=== PATIENT | female | born 1965 | race Caucasian/White ===

== ENCOUNTER 2022-11-14 20:39 | Outpatient (REF) | payer OTHER, SELFPAY ==
[2022-11-18 17:07] LABS: Age Gdln ACOG Testing Note (.); HPV Aptima Negative (Negative); IGP, Aptima HPV, rfx 16/18,45 Note (.)
== END 2022-11-14 20:40 | disposition home or self-care (01) ==
LOC: LAB 20:39
PROVIDERS: PCP Nurse Practitioner; Visit Provider Obstetrics & Gynecology
DX: Z12.4 Encounter for screening for malignant neoplasm of cervix (principal)
CPT/HCPCS: 87624; G0145

== ENCOUNTER 2022-11-24 07:16 | Outpatient (OUT) | payer OTHER, SELFPAY ==
--- NOTE | 2022-11-24 07:19 | MM_ITS ---
Patient: CAL ALVAREZ Exam Date: 11/24/2022 : 1965 Gender:F Ordering : DR Jayro Jeffers . Admission #: [id number] Family : JACOB NAVARRO Order #: [id number] CLICK HERE TO VIEW EXAM RADIOLOGY REPORT PROCEDURE: MM TOMOSYNTHESIS SCREENING BI COMPARISON: MG MAMM SCREEN 3D TIKA CAD, 11/23/2021. MG MAMM SCREEN 3D TIKA CAD, 11/12/2020. INDICATIONS: Screening Calculator Name NCI Breast Cancer Risk Assessment Tool 5 Year Breast Cancer Risk 1.10% Lifetime Breast Cancer Risk 7.20% Personal Breast Cancer No Personal Ovarian Cancer No Treatments None Family Cancers None LOCATION: [facility] BREAST COMPOSITION: Scattered areas fibroglandular density. FINDINGS: DIAGNOSTIC CATEGORY 1--NEGATIVE. NO CHANGE FROM COMPARISON ASSESSMENT. RIGHT BREAST: No significant suspicious finding. LEFT BREAST: No significant suspicious finding. RECOMMENDATIONS: ROUTINE MAMMOGRAM AND CLINICAL EVALUATION IN 12 MONTHS. PLEASE NOTE: A NORMAL MAMMOGRAM DOES NOT EXCLUDE THE POSSIBILITY OF BREAST CANCER. A CLINICALLY SUSPICIOUS PALPABLE LUMP SHOULD BE BIOPSIED. Dictated by: Elia Loyd MD on 11/24/2022 at 08:34 Approved by: Elia Loyd MD on 11/24/2022 at 08:35
== END 2022-11-24 07:17 | disposition home or self-care (01) ==
LOC: MAMMO 07:17
PROVIDERS: PCP Nurse Practitioner; Visit Provider Obstetrics & Gynecology
DX: Z00.00 Encounter for general adult medical examination without abnormal findings (principal); Z12.31 Encounter for screening mammogram for malignant neoplasm of breast
CPT/HCPCS: 36415; 77063; 77067; 80053; 80061; 83036; 84443; 85025

== ENCOUNTER 2022-11-24 07:43 | Outpatient (OUT) | payer OTHER, SELFPAY ==
[2022-11-24 08:03] LABS: Basophils Absolute Auto 0.1 10^3/uL (0.0-0.1); Basophils Percent Auto 0.9 % (0.2-2.0); Eosinophils Absolute Auto 0.3 10^3/uL (0.0-0.7); Eosinophils Percent Auto 3.7 % (0.9-7.0); Hematocrit 45.4 % (36.0-48.0); Hemoglobin 14.9 g/dL (12.0-16.0); Immature Granulocytes Abs Auto 0.02 10^3/uL (0.00-0.03); Immature Granulocytes Pct Auto 0.2 % (0.0-0.5); Lymphocytes Absolute Auto 2.6 10^3/uL (1.2-3.8); Lymphocytes Percent Auto 30.6 % (20.5-60.0); Mean Corpuscular HGB Conc 32.8 g/dL (29.9-35.2); Mean Corpuscular Hemoglobin 29.6 pg (26.7-34.0); Mean Corpuscular Volume 90.3 fL (81.0-99.0); Mean Platelet Volume 10.1 fL (9.5-13.5); Monocytes Absolute Auto 0.8 10^3/uL (0.3-0.8); Neutrophils Absolute Auto 4.6 10^3/uL (1.4-6.5); Neutrophils Percent Auto 54.6 % (43.0-75.0); Platelet Count 329 10^3/uL (150-450); Red Blood Count 5.03 10^6/uL (4.20-5.40); White Blood Count 8.4 10^3/uL (4.0-11.0)
[2022-11-24 08:21] LABS: Estimated Average Glucose 137 mg/dL; Glycohemoglobin A1C 6.4 % (4.5-6.2)
[2022-11-24 09:15] LABS: Alanine Aminotransferase 23 U/L (14-59); Albumin Globulin Ratio 1.1; Albumin Level 3.7 g/dL (3.4-5.0); Alkaline Phosphatase 66 U/L (46-116); Anion Gap 8.5; Aspartate Amino Transferase 11 U/L (15-37); BUN Creatinine Ratio 26.8; Bilirubin Total 0.3 mg/dL (0.2-1.0); Carbon Dioxide 29.5 mmol/L (21.0-32.0); Chloride 105 mmol/L (98-107); Chol HDL Ratio 3.6; Cholesterol 132 mg/dL (<=200); Estimated GFR (African America >60 (>=60); Estimated GFR (Non-African Ame >60 (>=60); Globulin 3.3 g/dL; Glucose 110 mg/dL (74-106); HDL Cholesterol 37 mg/dL (40-60); Sodium 139 mmol/L (136-145); Thyroid Stimulating Hormone 0.749 uIU/mL (0.358-3.740); Triglycerides 132 mg/dL (<=150); VLDL CHOLESTEROL 26.4 mg/dL
== END 2022-11-24 07:44 | disposition home or self-care (01) ==
PROVIDERS: PCP Nurse Practitioner; Visit Provider Nurse Practitioner
DX: Z00.00 Encounter for general adult medical examination without abnormal findings (principal)
CPT/HCPCS: 36415; 80053; 80061; 83036; 84443; 85025

== ENCOUNTER 2023-10-24 13:49 | Outpatient (RCR) | payer OTHER, SELFPAY | END 2023-12-06 10:14 | disposition home or self-care (01) | LOC: PT 13:49 | PROVIDERS: PCP Nurse Practitioner; Visit Provider Orthopaedic Surgery | DX: Z47.1 Aftercare following joint replacement surgery (principal); Z96.642 Presence of left artificial hip joint | CPT/HCPCS: 97110; 97112; 97161; 97530 ==

== ENCOUNTER 2023-11-26 08:19 | Outpatient (OUT) | payer OTHER, SELFPAY ==
--- NOTE | 2023-11-26 08:21 | MM_ITS ---
Patient Name: CLA ALVAREZ MR#: [id number] : 1965 Exam Date: 11/26/2023 Ordering Doctor: DR Jayro Jeffers . RADIOLOGY REPORT PROCEDURE: MM TOMOSYNTHESIS SCREENING BI COMPARISON: MG MAMM SCREEN 3D TIKA CAD, 11/23/2021. MM TOMOSYNTHESIS SCREENING BI, 11/24/2022. INDICATIONS: Screening Calculator Name NCI Breast Cancer Risk Assessment Tool 5 Year Breast Cancer Risk 1.10% Lifetime Breast Cancer Risk 7.10% Personal Breast Cancer No Personal Ovarian Cancer No Treatments None Family Cancers None LOCATION: [facility] BREAST COMPOSITION: There are scattered areas of fibroglandular density. FINDINGS: DIAGNOSTIC CATEGORY 1--NEGATIVE. NO CHANGE FROM COMPARISON ASSESSMENT. Scattered benign-appearing calcifications are present. RIGHT BREAST: No significant suspicious finding. LEFT BREAST: No significant suspicious finding. RECOMMENDATIONS: ROUTINE MAMMOGRAM AND CLINICAL EVALUATION IN 12 MONTHS. PLEASE NOTE: A NORMAL MAMMOGRAM DOES NOT EXCLUDE THE POSSIBILITY OF BREAST CANCER. A CLINICALLY SUSPICIOUS PALPABLE LUMP SHOULD BE BIOPSIED. Dictated by: Elia Loyd MD on 11/26/2023 at 10:56 Approved by: Elia Loyd MD on 11/26/2023 at 10:57
== END 2023-11-26 08:20 | disposition home or self-care (01) ==
LOC: MAMMO 08:19
PROVIDERS: PCP Nurse Practitioner; Visit Provider Obstetrics & Gynecology
DX: Z12.31 Encounter for screening mammogram for malignant neoplasm of breast (principal); Z78.0 Asymptomatic menopausal state
CPT/HCPCS: 77063; 77067

== ENCOUNTER 2023-12-03 08:13 | Outpatient (OUT) | payer OTHER, SELFPAY ==
--- NOTE | 2023-12-03 | XR_ITS ---
[address] [address] Patient Name: CAL ALVAREZ MRN: [id number] date: 1965 Sex: F Assigned Patient Location: [facility] Current Patient Location: Accession/Order Number: [id number] Exam Date: 12/03/2023 08:22 Report Date: 12/04/2023 07:31 At the request of: ALLEY LONDON Procedure: XR DEXA axial skeleton EXAMINATION: XR DEXA axial skeleton HISTORY: Postmenopausal state Z78.0 COMPARISON: DEXA bone densitometry 11/23/2021 TECHNIQUE: Dual-energy X-ray absorptiometry (DXA) was performed. FINDINGS: SPINE ANALYSIS: Average bone mineral density is 0.95 g/cm2. T-score (standard deviation relative to young adult mean): -1.8 . +12.8% change since prior study. HIP ANALYSIS: Lowest bone mineral density is within the right femoral neck, 0.791 g/cm2. T-score (standard deviation relative to young adult mean): -1.8 . -13.3% change since prior study. XR/XR DEXA axial skeleton IMPRESSION: World Health Organization Classification: Osteopenia - Moderate Fracture Risk FRAX: Cannot calculate. Pharmacologic treatment recommendations * No uniform recommendation applies to all patients. Management plans must be individualized. * Consider initiating pharmacologic treatment in postmenopausal women and men >= 50 years of age who have the following: Primary fracture prevention: * T-score <= - 2.5 at the femoral neck, total hip, lumbar spine, 33% radius (some uncertainty with existing data) by DXA. * Low bone mass (osteopenia: T-score between - 1.0 and - 2.5) at the femoral neck or total hip by DXA with a 10-year hip fracture risk >= 3% or a 10-year major osteoporosis-related fracture risk >= 20% (i.e., clinical vertebral, hip, forearm, or proximal humerus) based on the [place]-adapted FRAXregistered model. Secondary fracture prevention: * Fracture of the hip or vertebra regardless of BMD [4, 5]. * Fracture of proximal humerus, pelvis, or distal forearm in persons with low bone mass (osteopenia: T-score between - 1.0 and - 2.5). The decision to treat should be individualized in persons with a fracture of the proximal humerus, pelvis, or distal forearm who do not have osteopenia or low BMD [12, 13]. Oliver MS, Rob SL, Fozia KL, Haleigh EM, Destiny KG, AJ, Vanessa ES. The clinician's guide to prevention and treatment of osteoporosis. Osteoporos Int. 2021;33(10):4107-4951. doi: 10.1007/a08840-477-90879-n. Epub 2021Jul 07. Erratum in: Osteoporos Int. 2021Oct 06;: PMID: [id number]; PMCID: [id number]. Electronically authenticated by: MYLA ANDERSON Date: 12/04/2023 07:31
== END 2023-12-03 08:14 | disposition home or self-care (01) ==
LOC: RAD 08:13
PROVIDERS: PCP Nurse Practitioner; Visit Provider Obstetrics & Gynecology
DX: Z78.0 Asymptomatic menopausal state (principal); M85.80 Other specified disorders of bone density and structure, unspecified site
CPT/HCPCS: 77080

== ENCOUNTER 2024-01-14 22:11 | Outpatient (REF) | payer OTHER, SELFPAY ==
--- OUTSIDE RECORDS SUMMARY | 2024-01-14 22:16 | XMS_ITS | CCD ---
Author Organization [facility] Care Team Providers Care Senior Medical Transcriptionist Name Role Phone Sha Keller II Unavailable NALLELY, DR TALAMANTES Admitting Unavailable BROWNING, DR TALAMANTES Attending Unavailable West, DR Rodrigez Consulting Unavailable REQUEST, DR LOMBARDO LISTED Primary Care Unavaila ble BROWNING, DR TALAMANTES Consulting Unavailable STEPANIC, DR GUTIERREZ Attending Unavailable STEPANIC, DR GUTIERREZ Consulting Unavailable REQUEST, DR LOMBARDO LISTED Primary Care Unavaila ble STEPANIC, DR GUTIERREZ Admitting Unavailable ZIEBER, DR MYLA Skelton Consulting Unavailable ZEYAD, DR HAGER Admitting Unavailable REQUEST, DR LOMBRADO LISTED Primary Care Unavaila ble ZEYAD, DR HAGER Attending Unavailable ZEYAD, DR HAGER Consulting Unavailable GOEL, JACOB Primary Care Unavailable West, DR Rodrigez Consulting Unavailable ZEYAD, DR HAGER Admitting Unavailable ZEYAD, DR HAGER Attending Unavailable ZEYAD, DR HAGER Consulting Unavailable ZIEBER, DR MYLA Skelton Consulting Unavailable GOEL, JACOB Consulting Unavailable GOEL, JACOB Primary Care Unavailable GOEL, JACOB Admitting Unavailable JACOB GOEL Attending Unavailable MD Sha Keller II Attending Provider Key Sands Unavailable NO FAMILY, PHYSICIAN Primary Care Provider Unava ilable GREG Sands Attending Provider [phone] Amando GARZA-Jacob ROSSI Primary Care Provid er CHERRI Goel Primary Care Provider MD Sha Keller II Attending Provider [phone] IAIN Ronquillo Other Provider Unavailable IAIN Arenas Other Provider Unavailable IAIN Okeefe Other Provider Unavailable IAIN Bland Other Provider Unavailable IAIN Gonzalez Other Provider Unavailable MD Viky Islas Other Provider DO Jose Luis Cardoso Other Provider MD Zoltan Jason Other Provider DO Andrew Bradford Other Provider MD Don Duggan Other Provider [phone] MD Aby Hale Other Provider MD Thanh Sanchez Other Provider Unavailable GREG Baca Other Provider MD Jhon Franco Other Provider [phone] MD Santiago Schultz Other Provider MD Lucia العراقي Other Provider MD Lino Edwards Other Provider DO Peyman Guzmán Other Provider [phone] MD Mary Thao Other Provider MD Sachin Colby Other Provider ZOE Santos-Carolina Roberts Other Provider GREG Miller Other Provider Unavailable MD Brian Leigh Other Provider MD Jef Chavez Other Provider MD Rocael Reza Other Provider MD Craig Hoover Other Provider Unavailable MD Dex Lombardo Other Provider DO Deja Lira Other Provider DO Alon Brand Other Provider GREG Barrios Other Provider DO Hermelindo Brown Other Provider [phone] MD Tonya Davenport Other Provider GREG Donohue Other Provider GREG Emerson Other Provider MD Maycol Fermin Other Provider MD Woodrow Bowers Other Provider Oglesby Tank T Other Provider [phone] Luis, Yazid Other Provider MD Taqueria Reza Other Provider MD Sedrick Cruz Other Provider GREG Bowser Other Provider MD Nia Woods Admit Provider MD Bishop Sepulveda Other Provider IAIN Wise Other Provider Unavailable CHERRI Goel Primary Care Provider MD Sha Keller II Attending Provider CHERRI Goel Primary Care Provider MD Sha Keller II Attending Provider Sha Keller II Admitting UnavailSha Roach II Attending UnavailJacob Kraus Primary Care Unavailable Mariam Ronquillo Consulting Unavailable Sha Keller II Attending UnavailNia Adame Admitting Unavailable Jacob Goel Primary Care Unavailable Gearheart, Kayla Consulting Unavailable Denslow, Gilma Consulting Unavailable Edwina, Fallon Consulting Unavailable Talisha Gonzalez Consulting Unavailable MassViky kelley Consulting Unavailable Jose Luis Cardoso Consulting Unavailable Zoltan Jason Consulting Unavailable Andrew Bradford Consulting Unavailabl e Don Duggan Consulting Unavailable Aby Hale Consulting Unavailable Thanh Sanchez Consulting Unavailable Hoda Baca Consulting Unavailabl e Wassoамрина, Marwan Consulting Unavailable Santiago Schultz Consulting Unavailable Lucia العراقي Consulting Unavailable Jerry, Safwan Consulting Unavailable Peyman Guzmán Consulting Unavailable Mary Thao Consulting Unavailable Sachin Colby Consulting Unavailable Dee Santos Consulting Unavailable Fariba Miller Consulting Unavailable Brian Leigh Consulting Unavailab Jef Reyez Consulting Unavailable Rocael Reza Unavailable Craig Hoover Consulting Unavailable Dex Lombardo Consulting Unavailable Deja Lira Unavailable Alon Brand Consulting Unavailable Shirlene Barrios Consulting Unavailable Hermelindo Brown Consulting Unavailable Tonya Davenport Consulting Unavailable Lynette Donohue Consulting Unavailable Genna Emerson Consulting Unavailable Maycol Fermin Consulting Unavailable Woodrow Bowers Consulting Unavailable Tank Oglesby Consulting Unavailable Anthony Smith Consulting Unavailable Taqueria Reza Consulting Unavailable Sedrick Cruz Consulting Unava ilable Marianne Bowser Consulting Unavailable Bishop Sepulveda Consulting Unavailable Italia Wise Consulting Unavailable Krishna GREEN, Sha Macias Admitting Unavailabl e Krishna GREEN, Sha Macias Attending Unavailabl e Jacob Goel Primary Care Unavailable Krishna GREEN, Sha Macias Admitting Unavailabl e Krishna GREEN, Sha Macias Attending Unavailabl e Jacob Goel Primary Care Unavailable Krishna GREEN, Sha Macias Attending Unavailabl e Krishna II, Sha Macias Admitting Unavailabl e Pepe Goele J Primary Care Unavailable NO FAMILY, PHYSICIAN Primary Care Unavailable Key Sands R Admitting Unavailable Key Sands Attending Unavailable Sha Keller II Admitting Unavailabl e Krishna II, Sha Macias Attending Unavailabl e Amando Jacob J Primary Care Unavailable GOELPEPEE J Attending Unavailable GOEL, JACOB J Referring Unavailable GOEL, JACOB J Primary Care Unavailable JACOB GOEL Attending Unavailable PEPE GOELE J Referring Unavailable GOEL, JACOB J Primary Care Unavailable GOELJACOB J Attending Unavailable CLYDE GOELERIE J Referring Unavailable GOEL, JACOB J Primary Care Unavailable GOEL, JACOB J Referring Unavailable GOEL, JACOB J Primary Care Unavailable Unavailable Primary Care Provider Unavailabl e Allergies Allergy Classification Reported Allergen(s) Allergy Type Date of Onset Reaction(s) Facility (10 sources) Bacitracin / Neomycin / Polymyxin B; Translations: [Neosporin] Drug Allergy Unknown [facility] Repository (17 sources) Naproxen Drug Allergy 07-05-19 18 Anaphylaxis, Unknown [facility] (11 sources) shrimp allergenic extract Drug Allergy 02-13-20 Unknown [facility] (9 sources) Sulfacetamide / Sulfur Drug Allergy Unknown [facility] Other (1 source) Naproxen Drug Allergy [facility] (1 source) Shellfish Drug allergy (disorder) [facility] (1 source) Sulfamethoxazole / Trimethoprim Drug Allergy [facility] (11 sources) Bacitracin; Translations: [bacitracin] Drug Allergy 04-30-19 Redness of Skin [facility] (8 sources) Neomycin; Translations: [neomycin] Drug Allergy 04-30-19 24 Redness of Skin [facility] (10 sources) Shrimp product; Translations: [shrimp] Allergy to substance 02-13-20 [facility] (8 sources) Sulfacetamide; Translations: [sulfacetamide] Drug Allergy 04-30-19 24 [facility] (8 sources) Sulfur; Translations: [sulfur] Drug Allergy 04-30-19 24 [facility] (8 sources) polymyxin B; Translations: [polymyxin B] Allergy to substance 04-30-19 Redness of Skin [facility] (4 sources) bacitracin / neomycin / polymyxin b; Translations: [NEOMYCIN-BACITRACN ZN-POLYMYXNB] Drug Allergy 07-05-19 18 Other (See Comments) [facility] (4 sources) Naproxen; Translations: [NAPROXEN SODIUM] Drug Allergy 07-05-19 18 Anaphylaxis [facility] (5 sources) Sulfamethoxazole / Trimethoprim; Translations: [SULFAMETHOXAZOLE-T RIMETHOPRIM] Drug Allergy 07-12-19 18 Rash [facility] (5 sources) Sulfonamides (Antibiotic); Translations: [SULFA (SULFONAMIDE ANTIBIOTICS)] Propensity to adverse reactions to drug 12-23-19 Unknown [facility] (4 sources) Iodine And Iodide Containing Products; Translations: [IODINE AND IODIDE CONTAINING PRODUCTS] Propensity to adverse reactions to drug 11-10-19 [facility] (6 sources) buPROPion; Translations: [bupropion] Drug Allergy 09-18-19 Headache [facility] (1 source) Naproxen Drug Allergy 10-18-19 [facility] (3 sources) buPROPion; Translations: [BUPROPION HCL] Drug Allergy 07-04-19 [facility] (1 source) Bacitracin / Polymyxin B Drug Allergy 12-23-19 Unknown [facility] (1 source) Iodine Drug Allergy 12-23-19 Unknown [facility] (1 source) Shrimp product Propensity to adverse reactions 02-13-20 [facility] Medications Current Medications Medication Drug Class(es) Dates Sig (Normalized) Sig (Original) acetaminophen 500 mg oral tablet (17 sources) Start: 09-19-2023 acetaminophen (TYLENOL EXTRA STRENGTH) 500 mg tablet Q8H 09/19/2023 Active Start: 09-19-2023 take 1000 mg by mout h every eight hours Acetaminophen Active 1000 MG PO Q8H 180 30 September 19, 2023 12:00am DO NOT RECONCILE UNTIL DOS:10/02/2023 MED TO BED Start: 04-30-2023 End: 05-28-2023 take 1 capsule by mouth every four hours Acetaminophen (Tylenol) 325 mg capsule Discontinued 325 MG PO Every 4 hours April 30, 2023 1:00am May 28, 2023 3:12pm Tylenol PRN Acti ve Calcium Carb-Cholecalciferol (CALCIUM + D3 PO) (1 source) Calcium Carb-Cholecalciferol (CALCIUM + D3 PO) Calcium + D3 Active calcium carbonate 1500 mg / cholecalciferol 0.01 mg oral capsule (10 sources) Vitamin D Start: take 2 capsules by mouth once daily Calcium Carbonate-Vitamin D3 Active 2 CAP PO Daily April 30, 2023 1:00am take 1 tablet by jordan th in the morning Calcium Carb-Cholecalciferol 500-10 MG-M CG tablet Take 1 tablet by mouth in the morning. Active take 1 tablet by mouth once eliza y calcium carbonate-vitamin D3 500 mg-10 mcg (400 unit) tablet Take 1 tablet by mouth daily. Active Calcium-Vitamin D3 600-400 MG-UNIT (9 sources) take 2 tablets by mouth once daily Calcium-Vitamin D3 600-400 MG-UNIT 2 tablets Orally Once a day Active take 1 tablet by mouth once eliza y Calcium-Vitamin D3 600-400 MG-UNIT 1 tablet with a meal Orally Once a day Active cefadroxil 500 mg oral capsule (4 sources) Cephalosporin Antibacterial Start: 09-19-2023 take 500 mg by mouth every twelve hours Cefadroxil Active 500 MG PO Q12H 14 September 19, 2023 12:00am DO NOT RECONCILE UNTIL DOS:10/02/2023 MED TO BED cholecalciferol 0.25 mg oral capsule (9 sources) Vitamin D Start: 04-30-2023 take 250 ug by mouth once daily Cholecalciferol (Vitamin D3) Active 250 MCG PO Daily April 30, 2023 1:00am take 1 capsule by mo uth every twenty-four hours Vitamin D3 250 MCG (92153 UT) 1 capsule Orally Once a day Active cinnamon bark 500 mg oral capsule (6 sources) Start: 08-22-2023 cinnamon bark 500 mg capsule Daily 08/22/2023 Active Start: 08-22-2023 take 1000 mg by mouth once maureen ly Cinnamon Bark Active 1000 MG PO Daily August 22, 2023 12:00am Cinnamon Preparation (7 sources) Non-Standardized Food Allergenic Extract Cinnamon qd Active docusate sodium 50 mg / sennosides, senior living 8.6 mg oral tablet (4 sources) Start: 09-19-19 24 take 2 tablets by mouth once daily Sennosides-Docusa te Sodium (Senokot-S) 8.6-50 mg tablet Active 2 TAB PO daily 60 September 19, 2023 12:00am DO NOT RECONCILE UNTIL DOS:10/02/2023 MED TO BED Dulcolax Chewy Fruit Bites 600 MG (1 source) take 2 tablets by mouth twice daily Dulcolax Chewy Fruit Bites 600 MG 2 tablets Orally Twice a day Active Eye Restore (6 sources) Start: 07-11-19 24 take 1 tablet by mouth once daily Eye Restore Active 1 TAB PO Daily July 11, 2023 12:00am orally; Start: 07-11-2023 Eye Restore Ac tive PO July 11, 2023 12:00am Handicap Placard (3 sources) Start: 10-18-[address] Active 0 .Route .MEDSUPPLY October 18, 2023 12:00am As directed 3 months 10/18/2023-01/18/2024 ibuprofen 200 mg oral capsule (13 sources) Nonsteroidal Anti-inflammatory Drug Start: 04-30-2023 ibuprofen 200 mg cap dominique Daily at bedtime 04/30/2023 Active Start: 04-30-2023 take 400 mg by mouth once daily at bedtime Ibuprofen Active 400 MG PO Daily at bedtime April 30, 2023 1:00am Ibuprofen 200 MG 2 capsules at night Orally two at night PRN Active lisinopril 30 mg oral tablet (20 sources) Angiotensin Converting Enzyme Inhibitor Start: 12-03-2023 take 1 tablet by mouth once daily in the morning lisinopriL (PRINIVIL,ZESTRIL) 30 mg tablet Indications: Essential hypertension take one tablet by mouth once daily in the morning 30 tablet 5 12/03/2023 Active Start: 12-05-2022 End: 06-04-2023 take 30 mg by mouth once daily in the morning Lisinopril Active 30 MG PO Every morning April 30, 2023 1:00am Magnesium (6 sources) Start: 07-11-2023 take 2 capsules by mouth once daily magnesium Active 2 CAP PO Daily July 11, 2023 12:00am Magnesium Hydroxide (20 sources) Start: 04-30-2023 take 1 tablet by jordan th once daily Magnesium Hydroxide (Dulcolax (Magnesium Hydroxide)) 600 mg tablet,chewable Active 600 MG PO Daily April 30, 2023 5:11pm Start: 04-30-2023 take 1 tablet by jordan th once daily Magnesium Hydroxide (Dulcolax (Magnesium Hydroxide)) 600 mg tablet,chewable Active 600 MG PO Daily April 30, 2023 4:11pm Start: 04-30-2023 End: 01-09-2024 magnesium hydroxide 600 mg tablet,chewable Daily 04/30/2023 01/09/2024 Discontinued (Therapy completed) Start: 04-30-2023 End: 04-30-2023 take 1 tablet by mouth once daily Magnesium Hydroxide (Dulcolax (Magnesium Hydroxide)) 600 mg tablet,chewable Discontinued 600 MG PO Daily April 30, 2023 1:00am April 30, 2023 5:15pm Start: 04-30-2023 End: 04-30-2023 take 1 tablet by mouth once daily Magnesium Hydroxide (Dulcolax (Magnesium Hydroxide)) 600 mg tablet,chewable Discontinued 600 MG PO Daily April 30, 2023 12:00am April 30, 2023 4:15pm take 1 tablet by jordan th every twenty-four hours Dulcolax Chewy Fruit Bites 600 MG 1 tablets Orally daily Active methylPREDNISolone (1 source) Corticosteroid Start: 10-25-2022 methylPREDNISolone (MEDROL, PETEY,) 4 mg tablet Indications: Allergic contact dermatitis due to other agents follow package directions 21 tablet 0 10/25/2022 Active ondansetron 4 mg oral tablet (4 sources) Serotonin-3 Receptor Antagonist Start: 09-19-2023 take 4 mg by mouth every eight hours Ondansetron Hcl Active 4 MG PO Q8H September 19, 2023 12:00am DO NOT RECONCILE UNTIL DOS:10/02/2023 MED TO BED oxyCODONE hydrochloride 5 mg oral tablet (4 sources) Opioid Agonist Start: 09-19-2023 take 5 mg by mouth every four hours Oxycodone Active 5 MG PO Q4H September 19, 2023 DO NOT RECONCILE UNTIL DOS:10/02/2023 MED TO BED phentermine hydrochloride 37.5 mg oral tablet (11 sources) Sympathomimetic Amine Anorectic Start: 08-22-2023 take 37.5 mg by mouth once daily in the morning Phentermine Active 37.5 MG PO Every morning August 22, 2023 4:27pm Start: 07-11-2023 End: 08-22-2023 take 18.75 mg by mouth once daily 30 minutes after breakfast Phentermine Discontinued 18.75 MG PO Every morning July 11, 2023 12:00am August 22, 2023 4:43pm must administer 30 minutes before or 1-2 hours after breakfast polyethylene glycol 3350 20332 mg powder for oral solution (4 sources) Osmotic Laxative Start: 09-19-2023 Polyethylene Glycol 3350 (Miralax) 17 gram/dose powder Active 17 GM PO daily 09 15September 19, 2023 12:00am 1 packed mixed with 8 ounces of fluid. DO NOT RECONCILE UNTIL DOS:10/02/2023 MED TO BED predniSONE 10 mg oral tablet (4 sources) Start: 09-19-2023 take 10 mg by mouth once daily Prednisone Active 10 MG PO daily 10 September 19, 2023 12:00am DO NOT RECONCILE UNTIL DOS:10/02/2023 MED TO BED Restore (9 sources) Restore qd Activ e Restore Active rivaroxaban 10 mg oral tablet (4 sources) Factor Xa Inhibitor Start: 09-19-2023 take 10 mg by mouth once daily Rivaroxaban Active 10 MG PO daily 35 35 September 19, 2023 12:00am DO NOT RECONCILE UNTIL DOS:10/02/2023 MED TO BED rosuvastatin calcium 20 mg oral tablet (19 sources) HMG-CoA Reductase Inhibitor Start: 04-30-2023 take 1 tablet by mouth once daily in the morning rosuvastatin (CRESTOR) 20 mg tablet Indications: Mixed hyperlipidemia TAKE ONE TABLET BY MOUTH ONCE DAILY IN THE MORNING 30 tablet 11 05/07/2023 Active traMADol hydrochloride 50 mg oral tablet (4 sources) Opioid Agonist Start: 09-19-2023 take 50 mg by mouth every six hours Tramadol Active 50 MG PO Q6H 40 September 19, 2023 12:00am DO NOT RECONCILE UNTIL DOS:10/02/2023 MED TO BED turm/ging/elda/yuc/wi l/ozzy/hor (TUMERSAID ORAL) (1 source) turm/ging/elda/helton c/wi l/ozzy/hor (TUMERSAID ORAL) Take by mouth. 0 Active Turmeric extract (18 sources) Start: 04-30-2023 take 400 mg by mouth once daily Turmeric Active 400 MG PO Daily April 30, 2023 1:00am Start: 04-30-2023 take 400 mg by mouth once eliza y Turmeric Active 400 MG PO Daily April 30, 2023 12:00am Turmeric 400 MG capsule Turmeric Active turmeric 400 mg capsule Turmeric Active Turmeric qd Acti ve Turmeric Active UNABLE TO FIND (2 sources) UNABLE TO FIND T smiley by mouth daily. Med Name: EYE PROMISE RESTORE Active UNABLE TO FIND T smiley by mouth daily. Med Name: EYE PROMISE RESTORE 0 Active Vitamin D3 [id number] UNIT/GM (2 sources) Vitamin D3 05430 00 UNIT/GM as directed Active Vitamin D3 250 MCG (02924 UT) (5 sources) take 1 capsule by mo uth once daily Vitamin D3 250 MCG (06066 UT) 1 capsule Orally Once a day Active zypan (5 sources) Start: 09-18-2023 take 2 capsules by mouth once daily zypan Active 2 CAP PO Daily September 18, 2023 12:00am Completed/Discontinued Medications Medication Drug Class(es) Dates Sig (Normalized) Sig (Original) amLODIPine 5 mg oral tablet (20 sources) Dihydropyridine Calcium Channel Hina Start: 07-11-2023 End: 01-09-2024 take 1 tablet by mouth at bedtime amLODIPine (NORVASC) 5 mg tablet Indications: Essential hypertension TAKE 1 TABLET (5 MG TOTAL) BY MOUTH IN THE MORNING AND AT BEDTIME. 60 tablet 5 09/03/2023 01/09/2024 Discontinued (Therapy completed) Start: 03-06-2023 End: 07-11-2023 take 5 mg by mouth twice daily Amlodipine Discontinued 5 MG PO Twice daily April 30, 2023 1:00am July 11, 2023 3:29pm smoking cessation 12 hr buPROPion hydrochloride 150 mg extended release oral tablet (7 sources) Aminoketone Start: 04-30-2023 End: 05-28-2023 Bupropion Hcl (Smoking Deter) Discontinued 150 MG PO Twice daily 30 April 30, 2023 1:00am May 28, 2023 3:10pm Take one tablet daily days 1-7 then increase to twice daily dosing Fish Oils (9 sources) Fish Oil Not-Bipin ing/PRN Fish Oil Not-Bipin ing Fish Oil Active magnesium R-onwded-xzlfypmvjqi 42 mg (500 mg)- 250 mg tablet extended release (1 source) Start: 07-11-2023 End: 01-09-2024 magnesium Q-wbxlrx-rglqexitary 42 mg (500 mg)- 250 mg tablet extended release 2 capsules. 07/11/2023 01/09/2024 Discontinued (Therapy completed) varenicline 1 mg oral tablet (8 sources) Partial Cholinergic Nicotinic Agonist Start: 12-11-2022 take 1 tablet by mouth once daily in the morning Varenicline Tartrate 1 MG 1 tablet in the AM Orally Once a day for 30 days Dec, Not-Taking/PRN Start: 12-11-2022 Varenicline Ta rtrate 1 MG half tab once daily for three days, half tab twice daily for four days, then 1 tab twice daily Orally Twice a day for 30 days Dec, Active Start: 06-21-2022 varenicline (C HANTIX PETEY) 0.5 mg (11)- 1 mg (42) tablet Indications: Cigarette nicotine dependence without complication Take 0.5 mg one daily on days 1-3 and 0.5 mg twice daily on days 4-7. Then 1 mg twice daily for a total of 12 weeks. 53 tablet 0 06/21/2022 Active wheat dextrin 3000 mg powder for oral solution (20 sources) Start: 04-30-2023 End: 07-11-2023 take 1 tablet by mouth once daily Wheat Dextrin (Benefiber Sugar Free (Dextrin)) 1 gram tablet,chewable Discontinued 1 TAB PO Daily April 30, 2023 1:00am July 11, 2023 3:27pm chew thoroughly before swallowing; do not swallow whole Start: 04-30-2023 End: 04-30-2023 take 4 [oz_av] by mouth once daily Wheat Dextrin (Benefiber Sugar Free (Dextrin)) 3 gram/3.8 gram powder Discontinued 1 PACKET PO Daily April 30, 2023 1:00am April 30, 2023 5:11pm mix into at least 4 oz water or juice before administering Start: 04-30-2023 End: 07-11-2023 take 1 tablet by mouth once daily Wheat Dextrin (Benefiber Sugar Free (Dextrin)) 1 gram tablet,chewable Discontinued 1 TAB PO Daily April 30, 2023 1:00am July 11, 2023 3:27pm chew thoroughly before swallowing; do not swallow whole Start: 04-30-2023 take 1 tablet by jordan th once daily Wheat Dextrin (Benefiber Sugar Free (Dextrin)) 1 gram tablet,chewable Active 1 TAB PO Daily April 30, 2023 12:00am chew thoroughly before swallowing; do not swallow whole Wheat Dextrin (B ENEFIBER DRINK MIX PO) Benefiber Active Benefiber On The GO PRN Active Benefiber On The GO Active wheat dextrin/calcium/aspart am (BENEFIBER + CALCIUM SUGAR-FREE ORAL) (2 sources) End: 01-09-2024 wheat dextrin/calcium/aspart am (BENEFIBER + CALCIUM SUGAR-FREE ORAL) 01/09/2024 Discontinued (Therapy completed) wheat dextrin/ca lcium/aspartam (BENEFIBER + CALCIUM SUGAR-FREE ORAL) Problems Active Problems Problem Classification Problem Date Documented Date Episodic/Chronic Administrative/social admission (3 sources) Persons encountering health services in other specified circumstances Episodic Coma; stupor; and brain damage (13 sources) Daytime somnolence; Translations: [Somnolence] 07-11-2023 Episodic Disorders of lipid metabolism (20 sources) Hyperlipidemia; Translations: [Hyperlipidemia, unspecified] Onset: 10-07-2017 04-30-2023 Chronic Essential hypertension (20 sources) Essential hypertension; Translations: [Essential (primary) hypertension] Onset: 12-11-2017 04-30-2023 Chronic Immunizations and screening for infectious disease (1 source) Encounter for screening for human papillomavirus (HPV); Translations: [ENC SCREENING HUMAN PAPILLOMAVIRUS] Onset: 11-11-2021 Episodic Mood disorders (17 sources) Depressive disorder; Translations: [Depression] 07-11-2023 Chronic Osteoarthritis (20 sources) Osteoarthritis of left hip joint; Translations: [Unilateral primary osteoarthritis, left hip] Onset: 11-08-2020 Resolved: 07-14-2021 Chronic Other aftercare (3 sources) Patient encounter status; Translations: [Aftercare following joint replacement surgery] 10-17-2023 Chronic Other aftercare (9 sources) Aftercare following joint replacement surgery; Translations: [Aftercare following joint replacement] Onset: 11-15-2023 10-18-2023 Chronic Other aftercare (6 sources) Long-term current use of drug therapy; Translations: [Other prison (current) drug therapy] 08-02-2023 Episodic Other connective tissue disease (4 sources) History of total hip arthroplasty; Translations: [Presence of left artificial hip joint] 10-02-2023 Chronic Other connective tissue disease (11 sources) Presence of left artificial hip joint; Translations: [Hip joint replacement] Onset: 11-15-2023 10-03-2023 Chronic Other nervous system disorders (17 sources) Chronic pain; Translations: [Other chronic pain] Onset: 07-04-2023 04-30-2023 Chronic Other non-traumatic joint disorders (6 sources) Pain in left hip; Translations: [PAIN IN LEFT HIP] Onset: 12-09-2020 Resolved: 07-14-2021 Episodic Other nutritional; endocrine; and metabolic disorders (9 sources) Body mass index 30+ - obesity; Translations: [Body mass index (BMI) 36.0-36.9, adult] Chronic Other nutritional; endocrine; and metabolic disorders (2 sources) Body mass index (BMI) 36.0-36.9, adult Onset: 07-14-2021 Resolved: 07-14-2021 Chronic Other nutritional; endocrine; and metabolic disorders (2 sources) Metabolic syndrome X; Translations: [Metabolic syndrome] Onset: 10-07-2017 10-07-2017 Chronic Other nutritional; endocrine; and metabolic disorders (7 sources) Obese class II; Translations: [Obesity, unspecified] 07-11-2023 Chronic Other nutritional; endocrine; and metabolic disorders (6 sources) Body mass index 40+ - severely obese; Translations: [Morbid (severe) obesity due to excess calories] 07-13-2023 Chronic Other nutritional; endocrine; and metabolic disorders (7 sources) Morbid (severe) obesity due to excess calories; Translations: [Morbid obesity] 07-11-2023 Chronic Other nutritional; endocrine; and metabolic disorders (4 sources) Obesity, unspecified; Translations: [Obesity, unspecified] Onset: 10-02-2023 10-03-2023 Chronic Other nutritional; endocrine; and metabolic disorders (6 sources) Weight gain; Translations: [Abnormal weight gain] 05-02-2023 Episodic Other nutritional; endocrine; and metabolic disorders (9 sources) Abnormal weight gain; Translations: [Abnormal weight gain] 04-30-2023 Episodic Other nutritional; endocrine; and metabolic disorders (6 sources) Abnormal weight gain; Translations: [Abnormal weight gain] 07-11-2023 Episodic Other nutritional; endocrine; and metabolic disorders (1 source) Weight increased; Translations: [Abnormal weight gain] 05-02-2023 Episodic Other screening for suspected conditions (not mental disorders or infectious disease) (9 sources) Encounter for screening mammogram for malignant neoplasm of breast; Translations: [Encounter for screening for malignant neoplasm of cervix] Onset: 11-10-2021 Episodic Residual codes; unclassified (19 sources) Other specified personal risk factors, not elsewhere classified; Translations: [Personal risk factor] Episodic Residual codes; unclassified (1 source) At risk of disease; Translations: [Other specified personal risk factors, not elsewhere classified] 07-11-2023 Episodic Residual codes; unclassified (5 sources) Cardiovascular event risk; Translations: [Other specified personal risk factors, not elsewhere classified] 09-18-2023 Episodic Spondylosis; intervertebral disc disorders; other back problems (15 sources) Inflammation of sacroiliac joint; Translations: [Sacroiliitis, not elsewhere classified] 07-11-2023 Chronic Substance-related disorders (20 sources) Tobacco dependence syndrome; Translations: [Nicotine dependence, cigarettes, with unspecified nicotine-induced disorders] Onset: 01-13-2018 Chronic Unclassified (1 source) Annual Exam Onset: 01-09-2024 Unclassified (1 source) clearance for surgery lt hip Onset: 09-04-2023 Past or Other Problems Problem Classification Problem Date Documented Da te Episodic/Chronic Diabetes mellitus without complication (17 sources) Prediabetes; Translations: [Prediabetes] Onset: 09-04-2017 04-30-2023 Episodic Mood disorders (3 sources) Mood disorders; Translations: [Depression, unspecified] Onset: 12-27-2022 Resolved: 09-04-2023 12-27-2022 Other aftercare (1 source) Other intermediate project manager (current) drug therapy; Translations: [Other prison (current) drug therapy] Onset: 08-02-2023 Episodic Other bone disease and musculoskeletal deformities (5 sources) Other specified disorders of bone density and structure, unspecified site; Translations: [Disorder of bone and cartilage, unspecified] Onset: 11-25-2021 08-02-2023 Episodic Other bone disease and musculoskeletal deformities (8 sources) Osteopenia; Translations: [Other specified disorders of bone density and structure, unspecified site] Onset: 07-04-2023 04-30-2023 Episodic Other connective tissue disease (4 sources) Myalgia, other site; Translations: [MYALGIA OTHER SITE] Onset: 12-29-2020 Episodic Other non-traumatic joint disorders (2 sources) Hip pain; Translations: [Pain in left hip] Onset: 06-17-2018 06-17-2018 Episodic Other non-traumatic joint disorders (3 sources) Pain in left knee; Translations: [Pain in joint, lower leg] Onset: 06-17-2018 06-17-2018 Episodic Spondylosis; intervertebral disc disorders; other back problems (3 sources) Sacrococcygeal disorders, not elsewhere classified; Translations: [Low back pain] Onset: 06-17-2018 12-02-2019 Episodic Unclassified (2 sources) Onset: 12-27-2022 Resolved: 01-09-2024 12-27-2022 Results Test Name Value Interpretation Reference Range Facility CBC AND AUTO DIFFon 01-09-20 ABSOLUTE BASOPHIL 0.1 X10E9/L Normal 0.0-0.2 [facility] Comment on above: Performed By: #### C BCA, CMP, 92703-7, HA1C #### [facility] ([id number]) [address], [address] [place] [address] ABSOLUTE NEUTROPHIL 7.5 X10E9/L High 1.5-6.6 [facility] Comment on above: Performed By: #### Carolina BCA, CMP, 63872-8, HA1C #### [facility] ([id number]) [address], [address] [place] [address] Basophils/100 WBC (Bld) 1.0 % Normal [facility] Comment on above: Performed By: #### [place] BCA, CMP, 00528-0, HA1C #### [facility] ([id number]) [address], [address] [place] [address] Eosinophils (Bld) [#/Vol] 0.4 10*3/uL Normal 0.0-0.4 [facility] Comment on above: Performed By: #### C BCA, CMP, 68215-4, HA1C #### [facility] ([id number]) [address], [address] [place] [address] Eosinophils/100 WBC (Bld) 3.0 % Normal [facility] Comment on above: Performed By: #### Carolina BCA, CMP, 36234-9, HA1C #### [facility] ([id number]) [address], [address] [place] [address] Erythrocyte distribution width (RBC) [Ratio] 14.9 % Normal 11.5-15.0 [facility] Comment on above: Performed By: #### C REMY GRANGER, 66917-8, HA1C #### [facility] ([id number]) [address], [address] [place] [address] Hematocrit (Bld) [Volume fraction] 39.4 % Normal 35-47 [facility] Comment on above: Performed By: #### C REMY GRANGER, 80388-3, HA1C #### [facility] ([id number]) [address], [facility] [address] [place] [address] Hemoglobin (Bld) [Mass/Vol] 13.2 g/dL Normal 11.7-15.5 [facility] Comment on above: Performed By: #### [place] GRANGER CMP, 67862-5, HA1C #### [facility] ([id number]) [address], [facility] [address] [place] [address] Lymphocytes (Bld) [#/Vol] 3.2 10*3/uL Normal 1.0-3.5 [facility] Comment on above: Performed By: #### [place] GRANGER CMP, 01637-9, HA1C #### [facility] ([id number]) [address], [facility] [address] [place] [address] Lymphocytes/100 WBC (Bld) 26.4 % Normal [facility] Comment on above: Performed By: #### C REMY GRANGER, 94993-3, HA1C #### [facility] ([id number]) [address], [address] [place] [address] MCH (RBC) [Entitic mass] 27.7 pg Normal 27-34 [facility] Comment on above: Performed By: #### [place] GRANGER CMP, 66537-4, HA1C #### [facility] ([id number]) [address], [address] [place] [address] MCHC (RBC) [Mass/Vol] 33.4 g/dL Normal 32-36 [facility] Comment on above: Performed By: #### [place] GRANGER CMP, 18881-7, HA1C #### [facility] ([id number]) [address], [address] [place] [address] MCV (RBC) [Entitic vol] 83 fL Normal 80-100 [facility] Comment on above: Performed By: #### C REMY GRANGER, 91984-4, HA1C #### [facility] ([id number]) [address], [address] [place] [address] Monocytes (Bld) [#/Vol] 1.0 10*3/uL High 0-0.9 [facility] Comment on above: Performed By: #### Carolina RGANGER CMP, 86221-7, HA1C #### [facility] ([id number]) [address], [address] [place] [address] Monocytes/100 WBC (Bld) 8.0 % Normal [facility] Comment on above: Performed By: #### [place] GRANGER CMP, 57721-6, HA1C #### [facility] ([id number]) [address], [address] [place] [address] Neutrophils/100 WBC (Bld) 61.6 % Normal [facility] Comment on above: Performed By: #### [place] GRANGER CMP, 01661-5, HA1C #### [facility] ([id number]) [address], [address] [place] [address] Platelet mean volume (Bld) [Entitic vol] 9.0 fL Normal 7-12 [facility] Comment on above: Performed By: #### [place] GRANGER CMP, 73244-5, HA1C #### [facility] ([id number]) [address], [address] [place] [address] Platelets (Bld) [#/Vol] 387 10*3/uL Normal 150-450 [facility] Comment on above: Performed By: #### C BCA, CMP, 99918-5, HA1C #### [facility] ([id number]) [address], [address] [place] [address] RBC COUNT 4.75 X10E12/L Normal 3.80-5.20 [facility] Comment on above: Performed By: #### C BCA, CMP, 65941-4, HA1C #### [facility] ([id number]) [address], [facility] [address] [place] [address] WBC (Bld) [#/Vol] 12.2 10*3/uL High 4.0-11.0 [facility] Comment on above: Performed By: #### C BCA, CMP, 51681-9, HA1C #### [facility] ([id number]) [address], [address] [place] [address] COMPREHENSIVE METABOLIC PANE Luis 01-09-2024 Albumin [Mass/Vol] 4.1 g/dL Normal 3.2-5.3 [facility] Comment on above: Performed By: #### C BCA, CMP, 88599-2, HA1C #### [facility] ([id number]) [address], [address] [place] [address] ALP [Catalytic activity/Vol] 66 U/L Normal 39-130 [facility] Comment on above: Performed By: #### C BCA, CMP, 99264-0, HA1C #### [facility] ([id number]) [address], [address] [place] [address] ALT [Catalytic activity/Vol] 22 U/L Normal 0-31 [facility] Comment on above: Performed By: #### C BCA, CMP, 87839-8, HA1C #### [facility] ([id number]) [address], [address] [place] [address] Anion gap [Moles/Vol] 10 mmol/L Normal 5-15 [facility] Comment on above: Performed By: #### C BÁRBARA, CMP, 73112-3, HA1C #### [facility] ([id number]) [address], [address] [place] [address] AST [Catalytic activity/Vol] 18 U/L Normal 0-41 [facility] Comment on above: Performed By: #### C BÁRBARA, CMP, 36413-6, HA1C #### [facility] ([id number]) [address], [address] [place] [address] Bilirubin [Mass/Vol] 0.2 mg/dL Low 0.3-1.2 [facility] Comment on above: Performed By: #### C BÁRBARA, CMP, 02255-5, HA1C #### [facility] ([id number]) [address], [address] [place] [address] Calcium [Mass/Vol] 8.9 mg/dL Normal 8.5-10.5 [facility] Comment on above: Performed By: #### C BÁRBARA, CMP, 12300-5, HA1C #### [facility] ([id number]) [address], [address] [place] [address] Chloride [Moles/Vol] 107 mmol/L Normal 98-109 [facility] Comment on above: Performed By: #### C BCA, CMP, 56100-2, HA1C #### [facility] ([id number]) [address], [address] [place] [address] CO2 [Moles/Vol] 26 mmol/L Normal 22-32 [facility] Comment on above: Performed By: #### C BCA, CMP, 54159-8, HA1C #### [facility] ([id number]) [address], [address] [place] [address] Creatinine [Mass/Vol] 0.73 mg/dL Normal 0.40-1.00 [facility] Comment on above: Result Comment: METH OD TRACEABLE TO IDMS STANDARD Performed By: #### C REMY GRANGER, 48774-3, HA1C #### [facility] ([id number]) [address], [address] [place] [address] eGFR (CKD-EPI) NON-RACE DEPENDENT >90 Normal >59 [facility] Comment on above: Result Comment: Reported eGFR is based on the CKD-EPI 2020 equation that does not use a race coefficient. Performed By: #### C REMY GRANGER, 81477-8, HA1C #### [facility] ([id number]) [address], [address] [place] [address] Glucose [Mass/Vol] 104 mg/dL High 65-99 [facility] Comment on above: Performed By: #### C REMY GRANGER, 54299-5, HA1C #### [facility] ([id number]) [address], [address] [place] [address] Potassium [Moles/Vol] 4.3 mmol/L Normal 3.5-5.0 [facility] Comment on above: Performed By: #### C BÁRBARA, CMP, 03133-6, HA1C #### [facility] ([id number]) [address], [address] [place] [address] Protein [Mass/Vol] 7.2 g/dL Normal 6.0-8.0 [facility] Comment on above: Performed By: #### C BCA, CMP, 10803-2, HA1C #### [facility] ([id number]) [address], [address] [place] [address] Sodium [Moles/Vol] 143 mmol/L Normal 134-146 [facility] Comment on above: Performed By: #### C BCA, CMP, 63467-4, HA1C #### [facility] ([id number]) [address], [facility] [address] [place] [address] Urea nitrogen [Mass/Vol] 25 mg/dL High 5-23 [facility] Comment on above: Performed By: #### C BÁRBARA CMP, 13106-1, HA1C #### [facility] ([id number]) [address] [address] HGB A1C (GLYCO-HGB)on 2023 Glucose [Mass/Vol] 151 mg/dL Normal [facility] Comment on above: Performed By: #### C BÁRBARA, CMP, 90021-4, HA1C #### [facility] ([id number]) [address] [address] HbA1c (Bld) [Mass fraction] 6.9 % High 4.4-5.6 [facility] Comment on above: Result Comment: NOTE ADA Guidelines Result HgbA1c Normal : less than 5.7 % Prediabetes : 5.7 % to 6.4 % Diabetes : > 6.4 % Use with caution in patients with abnormal hemoglobin variants as the half-life of red blood cells and in vivo glycation rates are affected. Performed By: #### C BÁRBARA, CMP, 02802-1, HA1C #### [facility] ([id number]) [address] [address] Lipid 1996 panelon Cholesterol [Mass/Vol] 147 mg/dL Low 150-200 [facility] Comment on above: Performed By: #### C BÁRBARA, CMP, 38197-6, HA1C #### [facility] ([id number]) [address], [address] [address] Cholesterol in HDL [Mass/Vol] 39 mg/dL Low >39 [facility] Comment on above: Result Comment: HDL <40 mg/dL - High Risk HDL > or = 40mg/dL- Desirable HDL >60 mg/dL - Negative Risk Performed By: #### [place] GRANGER, REMY, 79609-5, HA1C #### [facility] ([id number]) [address], [address] [place] [address] Cholesterol in LDL [Mass/Vol] 68 mg/dL Normal <130 [facility] Comment on above: Result Comment: LDL <100 mg/dL - Desirable LDL >160 mg/dL - High Risk Performed By: #### [place] GRANGER, REMY, 54574-4, HA1C #### [facility] ([id number]) [address], [address] [place] [address] Cholesterol in VLDL [Mass/Vol] 40 mg/dL High 0-30 [facility] Comment on above: Performed By: #### [place] GRANGER CMP, 20523-9, HA1C #### [facility] ([id number]) [address], [facility] [address] [place] [address] CHOLESTEROL:HDL 3.8 Normal 1.0-5.0 [facility] Comment on above: Performed By: #### [place] GRANGER CMP, 14001-4, HA1C #### [facility] ([id number]) [address] [address] [place] [address] Triglyceride [Mass/Vol] 199 mg/dL High 27-150 [facility] Comment on above: Performed By: #### [place] GRANGER, REMY, 10940-5, HA1C #### [facility] ([id number]) [address] [address] [place] [address] XR hip LT min 2V(w/wo pelvis )*on 12-27-2023 XR hip LT min 2V(w/wo pelvis)* [facility] [address] [place] [address] XRay Report Signed Patient: Selam Alvarez MR#: [id number] 736 : 1965 Acct:[id number] Age/Sex: 58 / F ADM Date: 12/27/23 Loc: [facility] Room: Type: REG CLI Attending Dr: Sha Keller II, MD Copies to: Sha Keller MD Ordering Provider: Sha Keller MD Date of Service: 12/27/23 XR/XR hip LT min 2V(w/wo pelvis)*: Z47.1 - Aftercare following joint replacement surgery AP WEIGHTBEARING PELVIS AND LEFT HIP - 2 views: CLINICAL HISTORY: Follow-up left hip replacement COMPARISON: 11/15/2023 AP view the pelvis and crosstable lateral view of the left hip were obtained. A left hip prosthesis is again visualized. The hardware appears intact and unchanged from the prior. There is no developing fracture or dislocation. There are similar degenerative changes at the right hip, SI joints and lower imaged lumbar spine. There are no significant soft tissue abnormalities. XR/XR hip LT min 2V(w/wo pelvis)* IMPRESSION: STABLE LEFT HIP REPLACEMENT Impression dictated by: Angella Angel M.D.12/27/2023 3:54 PM Dictation Location: [place] [address] Transcribed By: [facility] 12/27/23 1554 Dictated By: Angella Angel MD 12/27/23 1553 Signed By: 12/27/23 155 Normal [facility] XR hip LT min 2V(w/wo pelvis )*on 11-15-2023 XR hip LT min 2V(w/wo pelvis)* [facility] [address] [place] [address] XRay Report Signed Patient: Selam Alvarez MR#: [id number] 736 : 1965 Acct:[id number] Age/Sex: 58 / F ADM Date: 11/15/23 Loc: [facility] Room: Type: REG CLI Attending Dr: Sha Keller II, MD Copies to: Sha Keller MD Ordering Provider: Sha Keller MD Date of Service: 11/15/23 XR/XR hip LT min 2V(w/wo pelvis)*: Z47.1 - Aftercare following joint replacement surgery LEFT HIP - 2 views: CLINICAL HISTORY: Follow-up left KEVIN. COMPARISON: Hip series 10/02/2023 FINDINGS: Left KEVIN without radiographic complication. Mild degenerative changes right hip. XR/XR hip LT min 2V(w/wo pelvis)* IMPRESSION: LEFT KEVIN WITHOUT RADIOGRAPHIC COMPLICATION.. Impression dictated by: Jose Luis Wing Jr., D.O.11/15/2023 4:30 PM Dictation Location: [place] [address] Transcribed By: [facility] 11/15/23 1630 Dictated By: Jose Luis Wing Jr, DO 11/15/23 1630 Signed By: 11/15/23 1630 Normal [facility] Automated basophil %Ordered By: Sha Keller on 10-03-2023 Basophils/100 WBC (Bld) 0.4 % Normal . [facility] Comment on above: Performed By: #### B MP, CBC ####[facility] [id number] Automated basophil countOrde red By: Sha Keller on 10-03-2023 Basophils (Bld) [#/Vol] 0.1 10*3/uL Normal 0.0-0.2 [facility] Comment on above: Result Comment: PERF ORMED BY: [facility] [address] [place] [address] PATHOLOGIST LABORATORY INSPECTOR LOUIS MOREAU M.D. Performed By: #### B MP, CBC ####[facility] [id number] Automated blood monocyte cou ntOrdered By: Sha Keller on 10-03-2023 Monocytes (Bld) [#/Vol] 1.2 10*3/uL High 0.0-0.8 [facility] Comment on above: Performed By: #### B MP, CBC ####[place] [id number] [place] [id number] [facility] Automated eosinophil %Ordere d By: Sha Keller on 10-03-2023 Eosinophils/100 WBC (Bld) 1.8 % Normal . [facility] Comment on above: Performed By: #### B MP, CBC ####[address] Automated eosinophil countOr dered By: Sha Keller on 10-03-2023 Eosinophils (Bld) [#/Vol] 0.2 10*3/uL Normal 0.0-0.45 [facility] Comment on above: Performed By: #### B MP, CBC ####[address] Automated monocyte %Ordered By: Sha Keller on 10-03-2023 Monocytes/100 WBC (Bld) 10.5 % Normal . [facility] Comment on above: Performed By: #### B MP, CBC ####[address] Automated neutrophil %Ordere d By: Sha Keller on 10-03-2023 Neutrophils/100 WBC (Bld) 70.6 % Normal . [facility] Comment on above: Performed By: #### B MP, CBC ####[address] Basic Metabolic Panelon 09-10 Creatinine Clr Calc Pharmacy 108.97 Normal [facility] Comment on above: Result Comment: PERF ORMED BY: [facility] [address] [place] [address] [place] [id number] PATHOLOGIST LABORATORY INSPECTOR LOUIS MOREAU M.D. Performed By: #### B MP, CBC ####[address] GFR/1.73 sq M.predicted MDRD (S/P/Bld) [Vol rate/Area] mL/min/{1.73_m2} Normal [facility] Comment on above: Performed By: #### B MP, CBC ####[facility] [address] Calcium [Mass/volume] in Ser um or PlasmaOrdered By: Sha Keller on 10-03-2023 Calcium [Mass/Vol] 8.3 mg/dL Low 8.6-10.3 [facility] Comment on above: Performed By: #### B MP, CBC ####[address] Carbon dioxide, total [Moles /volume] in Serum or PlasmaOrdered By: Sha Keller on 10-03-2023 CO2 [Moles/Vol] 25.9 mmol/L Normal 21.0-31.0 [facility] Comment on above: Performed By: #### B MP, CBC ####[address] Chloride [Moles/volume] in S larisa or PlasmaOrdered By: Sha Keller on 10-03-2023 Chloride [Moles/Vol] 106 mmol/L Normal 98-107 [facility] Comment on above: Performed By: #### B MP, CBC ####[place] [id number] [facility] Complete Blood Count Auto Di ffon 10-03-2023 Mean Corpuscular HGB Conc 33.2 g/dL Normal 32.0-35.0 [facility] Comment on above: Performed By: #### B MP, CBC ####[address] NRBC% 0.1 /100{WBC} Normal 0-0.5 [facility] Comment on above: Performed By: #### B MP, CBC ####[address] Creatinine [Mass/volume] in Serum or PlasmaOrdered By: Sha Keller on 10-03-2023 Creatinine [Mass/Vol] 0.63 mg/dL Normal 0.60-1.20 [facility] Comment on above: Performed By: #### B MP, CBC ####[address] Erythrocyte distribution wid th [Ratio] by Automated countOrdered By: Sha Keller on 10-03-2023 Erythrocyte distribution width (RBC) [Ratio] 13.7 % Normal 11.9-15.3 [facility] Comment on above: Performed By: #### B MP, CBC ####[facility] Erythrocytes [#/volume] in B lood by Automated countOrdered By: Sha Keller on 10-03-2023 RBC (Bld) [#/Vol] 4.31 10*6/uL Normal 3.60-5.00 [facility] Comment on above: Performed By: #### B MP, CBC ####[place] [id number] Glucose [Mass/volume] in Ser um or PlasmaOrdered By: Sha Keller on 10-03-2023 Glucose [Mass/Vol] 124 mg/dL High 70-100 [facility] Comment on above: ADA recommended refe rence rangeRandom Glucose Reference Range is dependent on time and content of last meal. Glucose of more than 200 mg/dL in a nonstressed, ambulatory subject supports the diagnosis of Diabetes Mellitus. Result Comment: [place] Glucose Reference Range is dependent on time and content of last meal. Glucose of more than 200 mg/dL in a nonstressed, ambulatory subject supports the diagnosis of Diabetes Mellitus. ADA recommended reference range Performed By: #### B ADAM, CBC ####[place] [id number] [facility] Hematocrit [Volume Fraction] of Blood by Automated countOrdered By: Sha Keller on 10-03-2023 Hematocrit (Bld) [Volume fraction] 35.9 % Normal 34.0-46.4 [facility] Comment on above: Performed By: #### B MP, CBC ####[address] Hemoglobin [Mass/volume] in BloodOrdered By: Sha Keller on 10-03-2023 Hemoglobin (Bld) [Mass/Vol] 11.9 g/dL Normal 11.8-15.4 [facility] Comment on above: Performed By: #### B MP, CBC ####[address] Leukocytes [#/volume] correc janelle for nucleated erythrocytes in Blood by Automated counOrdered By: Sha Keller on 10-03-2023 WBC corrected for nucl RBC Auto (Bld) [#/Vol] 11.8 10*3/uL High 3.8-11.6 [facility] Leukocytes [#/volume] in Blo od by Automated countOrdered By: Sha Keller on 10-03-2023 WBC (Bld) [#/Vol] 11.8 10*3/uL High 3.8-11.6 [facility] Comment on above: Performed By: #### B MP, CBC ####[address] Lymphocytes [#/volume] in Bl ood by Automated countOrdered By: Sha Keller on 10-03-2023 Lymphocytes (Bld) [#/Vol] 2.0 10*3/uL Normal 1.00-4.8 [facility] Comment on above: Performed By: #### B MP, CBC ####[address] Lymphocytes/100 leukocytes i n Blood by Automated countOrdered By: Sha Keller on 10-03-2023 Lymphocytes/100 WBC (Bld) 16.7 % Normal . [facility] Comment on above: Performed By: #### B MP, CBC ####[address] MCH [Entitic mass] by Automa janelle countOrdered By: Sha Keller on 10-03-2023 MCH (RBC) [Entitic mass] 27.7 pg Normal 24.7-34.3 [facility] Comment on above: Performed By: #### B MP, CBC ####[address] MCHC Auto (RBC) [Mass/Vol]Or dered By: Sha Keller on 10-03-2023 MCHC (RBC) [Mass/Vol] 33.2 g/dL 32.0-35.0 [facility] MCV [Entitic volume] by Auto mated countOrdered By: Sha Keller on 10-03-2023 MCV (RBC) [Entitic vol] 83.3 fL Normal 80-100 [facility] Comment on above: Performed By: #### B MP, CBC ####[place] [id number] [address] Neutrophils [#/volume] in Bl ood by Automated countOrdered By: Sha Keller on 10-03-2023 Neutrophils (Bld) [#/Vol] 8.4 10*3/uL High 1.8-7.7 [facility] Comment on above: Performed By: #### B MP, CBC ####[address] No Panel InformationOrdered By: Sha Keller on 10-03-2023 Estimated GFR (CKD-EPI) > 60.0 mL/Min [facility] Creatinine Clearance (Chem 108.97 [facility] Nucleated erythrocytes [Pres ence] in Blood by Automated countOrdered By: Sha Keller on 10-03-2023 Nucleated RBC Auto Ql (Bld) 0.1 /100{WBC} 0-0.5 [facility] Platelet mean volume [Entiti c volume] in Blood by Automated countOrdered By: Sha Keller on 10-03-2023 Platelet mean volume (Bld) [Entitic vol] 8.3 fL Normal 6.3-10.7 [facility] Comment on above: Performed By: #### B MP, CBC ####[place] [id number] [facility] Platelets [#/volume] in Bloo d by Automated countOrdered By: Sha Keller on 10-03-2023 Platelets (Bld) [#/Vol] 342 10*3/uL Normal 150-450 [facility] Comment on above: Performed By: #### B MP, CBC ####[address] Potassium [Moles/volume] in Serum or PlasmaOrdered By: Sha Keller on 10-03-2023 Potassium [Moles/Vol] 4.1 mmol/L Normal 3.5-5.1 [facility] Comment on above: Performed By: #### B MP, CBC ####[place] [address] [place] [id number] [facility] Serum or plasma anion gap de terminationOrdered By: Sha Keller on 10-03-2023 Anion gap [Moles/Vol] 9.2 mmol/L Normal 6.0-15.0 [facility] Comment on above: Performed By: #### B MP, CBC ####[place] [address] [address] Sodium [Moles/volume] in Ser um or PlasmaOrdered By: Sha Keller on 10-03-2023 Sodium [Moles/Vol] 137 mmol/L Normal 136-145 [facility] Comment on above: Performed By: #### B MP, CBC ####[place] [id number] [facility] Urea nitrogen [Mass/volume] in Serum or PlasmaOrdered By: Sha Keller on 10-03-2023 Urea nitrogen [Mass/Vol] 11 mg/dL Normal 7-25 [facility] Comment on above: Performed By: #### B MP, CBC ####[place] [id number] [facility] XR hip LT 1Von 10-03-2023 XR hip LT 1V [facility] [address] [place] [id number] XRay Report Signed Patient: Selam Alvarez MR#: [id number] 736 : 1965 Acct:[id number] Age/Sex: 58 / F ADM Date: 10/02/23 Loc: 4N Room: 8C6871-4 Type: REG [facility] [place] Attending Dr: Sha Keller II, MD Copies to: Sha Keller MD Ordering Provider: Sha Keller MD Date of Service: 10/02/23 XR/XR hip LT 1V: INTRAOPERATIVE Intraoperative study. Reason for exam: Left KEIVN Findings: 7 images were obtained intraoperatively. Left KEVIN was placed Cumulative Air Kerma in mGy: 17.7 mGy XR/XR hip LT 1V Impression: Intraoperative study. Impression dictated by: Jose Luis Wing Jr., D.OFrancoise10/03/2023 8:22 AM Dictation Location: [place] [address] Transcribed By: [facility] 10/03/23821 Dictated By: Jose Luis Wing Jr, DO 10/03/23821 Signed By: 10/03/23821 Normal [facility] ABO/Rh Retypeon 10-02-2023 ABO/RH Recheck Result Positive Normal [facility] Comment on above: Result Comment: PERF ORMED BY: [facility] [address] [place] [address] PATHOLOGIST LABORATORY INSPECTOR LOUIS Smith 10-02-2023 L Specimen: [id number] Received: 10/03/23 Status: ALEXX Diaz Num: [id number] Spec Type: Surgical Subm Dr: Sha Keller MD Tissues: A Femoral Head - Other than Fracture (LT HIP) Procedures: HE/2, Gross/Micro L3, Decalcification Age/ Patient Sex Location Account Attending Physician Selam Alvarez 58/F [place] [id number] Sha Keller MD SPEC NUM: [id number] RECD: 10/03/23 STATUS: ALEXX DIAZ NUM: [id number] CATRACHITO: 10/02/23- SUBM DR: Sha Keller MD ENTERED: 10/03/[address] [facility] [address]: SPEC TYPE: Surgical DEPT: S ORDERED: HE/2, Gross/Micro L3, Decalcification ORDERED: HE/2, Gross/Micro L3, Decalcification Pathological Diagnosis Femoral head and soft tissue, left (left total hip arthroplasty): Osteoarthritis (degenerative joint disease); gross exam only See gross description Clinical Information DJD L hip Gross Description Received in formalin, labeled with the patient's name, date of and bone and tissue, is a 5.3 cm in diameter spherical femoral head with a flat and smooth resection margin through the neck and an aggregate of sanders-pink to yellow soft tissue measuring 8.1 x 4.5 x 1.5 cm. A 3.4 x 2.3 cm eburnated area is on the articular surface, with moderate osteophyte formation around the articular surface edge. The specimen is sectioned, revealing no focal lesions nor necrosis. A gross photo is included. The specimen is for gross only examination. CPT Codes 93453 BONE AND TISSUE Specimen: [id number] Received: 10/03/23 Status: ALEXX Diaz Num: [id number] Spec Type: Surgical Subm Dr: Sha Keller MD Tissues: A Femoral Head - Other than Fracture (LT HIP) Procedures: HE/2, Gross/Micro L3, Decalcification Patient: Selam Alvarez [id number] (Continued) Signed (signature on file) Jamie Louie Jr., MD 10/06/23 1309 Normal [facility] XR low pelvis w/LT x-table h ipon 10-02-2023 XR low pelvis w/LT x-table hip [facility] [place] [address] XRay Report Signed Patient: Selam Alvarez MR#: [id number] 736 : 1965 Acct:[id number] Age/Sex: 58 / F ADM Date: 10/02/23 Loc: Room: [address] [place] [address] Type: [facility] Attending Dr: Sha Keller II, MD Copies to: Sha Keller MD Ordering Provider: Sha Keller MD Date of Service: 10/02/23 XR/XR low pelvis w/LT x-table hip: Total hip, Do in PACU A single view low pelvis with crosstable lateral hip HISTORY: LEFT total hip arthroplasty Adequate hardware. Adequate alignment. No acute fracture. Postsurgical soft tissue changes. XR/XR low pelvis w/LT x-table hip IMPRESSION: Unremarkable LEFT hip arthroplasty Impression dictated by: Artur Brannon M.D.10/02/2023 7:11 PM Dictation Location: [place] [address] Transcribed By: [facility] 10/02/231910 Dictated By: Artur Brannon DO 10/02/231909 Signed By: 10/02/231910 Normal [facility] Automated basophil %Ordered By: Sha Keller on 09-18-2023 Basophils/100 WBC (Bld) 1.3 % Normal . [facility] Comment on above: Performed By: #### F RUC #### [facility] , #### CBC, BMP #### [address] Automated basophil countOrde red By: Sha Keller on 09-18-2023 Basophils (Bld) [#/Vol] 0.1 10*3/uL Normal 0.0-0.2 [facility] Comment on above: Result Comment: PERF ORMED BY: [place] [address] PATHOLOGIST LABORATORY INSPECTOR LOUIS MOREAU M.D. Performed By: #### F RUC #### [facility] , #### CBC, BMP #### [address] Automated blood monocyte cou ntOrdered By: Sha Keller on 09-18-2023 Monocytes (Bld) [#/Vol] 0.7 10*3/uL Normal 0.0-0.8 [facility] Comment on above: Performed By: #### F RUC #### [facility] , #### CBC, BMP #### [address] Automated eosinophil %Ordere d By: Sha Keller on 09-18-2023 Eosinophils/100 WBC (Bld) 3.4 % Normal . [facility] Comment on above: Performed By: #### F RUC #### [facility] , #### CBC, BMP #### [address] Automated eosinophil countOr dered By: Sha Keller on 09-18-2023 Eosinophils (Bld) [#/Vol] 0.3 10*3/uL Normal 0.0-0.45 [facility] Comment on above: Performed By: #### F RUC #### [facility] , #### CBC, BMP #### [address] Automated monocyte %Ordered By: Sha Keller on 09-18-2023 Monocytes/100 WBC (Bld) 8.1 % Normal . [facility] Comment on above: Performed By: #### F RUC #### [facility] , #### CBC, BMP #### [facility] [address] [place] [address] Automated neutrophil %Ordere d By: Sha Keller on 09-18-2023 Neutrophils/100 WBC (Bld) 61.4 % Normal . [facility] Comment on above: Performed By: #### F RUC #### [facility] , #### CBC, BMP #### [facility] [address] [place] [address] Bacteria [Presence] in Urine by AutomatedOrdered By: Sha Keller on 09-18-2023 Bacteria Auto Ql (U) None seen [HPF] None Seen [facility] Basic Metabolic Panelon GFR/1.73 sq M.predicted MDRD (S/P/Bld) [Vol rate/Area] mL/min/{1.73_m2} Normal [facility] Comment on above: Performed By: #### F RUC #### [facility] , #### CBC, BMP #### [facility] [address] [place] [address] Bilirubin Test strip Ql (U)O rdered By: Sha Keller on 09-18-2023 Bilirubin Ql (U) Negative Negative [facility] Calcium [Mass/volume] in Ser um or PlasmaOrdered By: Sha Keller on 09-18-2023 Calcium [Mass/Vol] 9.7 mg/dL Normal 8.6-10.3 [facility] Comment on above: Result Comment: PERF ORMED BY: [place] [address] PATHOLOGIST LABORATORY INSPECTOR LOUIS MOREAU M.D. Performed By: #### F RUC #### [facility] , #### CBC, BMP #### [facility] [address] [place] [address] Carbon dioxide, total [Moles /volume] in Serum or PlasmaOrdered By: Sha Keller on 09-18-2023 CO2 [Moles/Vol] 27.6 mmol/L Normal 21.0-31.0 [facility] Comment on above: Performed By: #### F RUC #### [facility] , #### CBC, BMP #### [facility] [address] [place] [address] [place] Chloride [Moles/volume] in S larisa or PlasmaOrdered By: Sha Keller on 09-18-2023 Chloride [Moles/Vol] 108 mmol/L High 98-107 [facility] Comment on above: Performed By: #### F RUC #### [facility] , #### CBC, BMP #### [address] Color of Urine by AutoOrdere d By: Sha Keller on 09-18-2023 Color (U) Colorless Normal Yellow [facility] Comment on above: Order Comment: Name Collection Type:: Clean-Voided Midstream Performed By: #### A DDONUAPIEDAD, CUU ####[facility] [place] [address] Complete Blood Count Auto Di ffon 09-18-2023 Mean Corpuscular HGB Conc 33.5 g/dL Normal 32.0-35.0 [facility] Comment on above: Performed By: #### F RUC #### [facility] , #### CBC, BMP #### [facility] [address] [place] [address] [place] NRBC% 0.1 /100{WBC} Normal 0-0.5 [facility] Comment on above: Performed By: #### F RUC #### [facility] , #### CBC, BMP #### [facility] [address] [place] [address] [place] Creatinine [Mass/volume] in Serum or PlasmaOrdered By: Sha Keller on 09-18-2023 Creatinine [Mass/Vol] 0.67 mg/dL Normal 0.60-1.20 [facility] Comment on above: Performed By: #### F RUC #### [facility] , #### CBC, BMP #### [facility] [address] [place] [address] [facility] Dipstick and Microscopicon 0 09-18-2023 Bacteria,Urine None Seen Normal None Seen [facility] Comment on above: Order Comment: Name Collection Type:: Clean-Voided Midstream Performed By: #### A DDONUAPLUS, CUU ####[place] [address] [place] [address] [facility] Bilirubin,Urine Negative Normal Negative [facility] Comment on above: Order Comment: Name Collection Type:: Clean-Voided Midstream Performed By: #### A DDONUAPLUS, CUU ####[place] [address] [address] Glucose Ql (U) Normal Normal Normal [facility] Comment on above: Order Comment: Name Collection Type:: Clean-Voided Midstream Performed By: #### A DDONUAPLUS, CUU ####[place] [address] [place] [address] [place] Hyaline Casts,Urine None Normal 0-8 [facility] Comment on above: Order Comment: Name Collection Type:: Clean-Voided Midstream Performed By: #### A DDONUAPLUS, CUU ####[place] [address] [place] [address] [facility] Mucus,Urine Rare Normal [facility] Comment on above: Order Comment: Name Collection Type:: Clean-Voided Midstream Result Comment: PERF ORMED BY: [facility] [address] [facility] [address] [address] [address] PATHOLOGIST LABORATORY INSPECTOR LOUIS MOREAU M.D. Performed By: #### A DDONUAPLUS, CUU ####[place] [address] [place] [id number] [place] Nitrite,Urine Negative Normal Negative [facility] Comment on above: Order Comment: Name Collection Type:: Clean-Voided Midstream Performed By: #### A DDONUAPLUS, CUU ####[place] [id number] [facility] Occult Blood,Urine Negative Normal Negative [facility] Comment on above: Order Comment: Name Collection Type:: Clean-Voided Midstream Result Comment: PERF ORMED BY: [facility] [address] [place] [address] PATHOLOGIST LABORATORY INSPECTOR LOUIS MOREAU M.D. Performed By: #### A DDONUAPLUS, CUU ####[address] Protein,Urine Negative Normal Negative [facility] Comment on above: Order Comment: Name Collection Type:: Clean-Voided Midstream Performed By: #### A DDONUAPLUS, CUU ####[address] RBC,Urine 1-2 Normal 0-4 [facility] Comment on above: Order Comment: Name Collection Type:: Clean-Voided Midstream Performed By: #### A DDONUAPLUS, CUU ####[address] Specificy [place],Urine 1.018 Normal 1.001-1.03 0 [facility] Comment on above: Order Comment: Name Collection Type:: Clean-Voided Midstream Performed By: #### A DDONUAPLUS, CUU ####[place] [id number] [facility] Urobilinogen,Urine Normal Normal Normal [facility] Comment on above: Order Comment: Name Collection Type:: Clean-Voided Midstream Performed By: #### A DDONUAPLUS, CUU ####[address] WBC,Urine 5-9 High 0-4 [facility] Comment on above: Order Comment: Name Collection Type:: Clean-Voided Midstream Performed By: #### A DDONUAPLUS, CUU ####[facility] [address] ECG 12 lead ECGon 09-18-2023 ECG 12 lead ECG [facility] [address] [place] [address] [place] [address] Electrocardiograph Report Signed Patient: Selam Alvarez MR#: [id number] 736 : 1965 Acct:[id number] Age/Sex: 58 / F ADM Date: 09/18/23 Loc: Room: Type: [facility] Attending Dr: Sha Keller II, MD Ordering Provider: Sha Keller MD Date of Service: 09/18/2312/03/1325 ECG/ECG 12 lead ECG: preop Copies to: Test Reason : Blood Pressure : / mmHG Vent. Rate : 086 BPM Atrial Rate : 086 BPM P-R Int : 142 ms QRS Dur : 082 ms QT Int : 364 ms P-R-T Axes : 063 014 049 degrees QTc Int : 435 ms Normal sinus rhythm with sinus arrhythmia Normal ECG No previous ECGs available Confirmed by ECTOR RAZO [facility], SHON ([id number]) on 09/18/2023 3:54:04 PM Referred By: KRISHNA Electronically Signed By:SHON BARNEY MD [facility] Transcribed By: GEMA Signed By Shon Barney MD, FAC 09/18/23 0784 Normal [facility] Epithelial cells.squamous [# /area] in Urine sediment by Automated countOrdered By: Sha Keller on 09-18-2023 Epithelial cells.squamous Auto (Urine sed) [#/Area] N/A [facility] Erythrocyte distribution wid th [Ratio] by Automated countOrdered By: Sha Keller on 09-18-2023 Erythrocyte distribution width (RBC) [Ratio] 13.7 % Normal 11.9-15.3 [facility] Comment on above: Performed By: #### F RUC #### [facility] , #### CBC, BMP #### [facility] [address] [place] [address] Erythrocytes [#/area] in Uri ne sediment by Automated countOrdered By: Sha Keller on 09-18-2023 RBC Auto (Urine sed) [#/Area] 1-2 [HPF] 0-4 [facility] Erythrocytes [#/volume] in B lood by Automated countOrdered By: Sha Keller on 09-18-2023 RBC (Bld) [#/Vol] 4.72 10*6/uL Normal 3.60-5.00 [facility] Comment on above: Performed By: #### F RUC #### [facility] , #### CBC, BMP #### [facility] [address] [place] [address] [place] Fructosamineon 09-18-2023 Fructosamine 223 umol/L Normal 0-285 [facility] Comment on above: Result Comment: Publ ished reference interval for apparently healthy subjects between age 20 and 60 is 205 - 285 umol/L and in a poorly controlled diabetic population is 228 - 563 umol/L with a mean of 396 umol/L. Performed at: [employer] [id number] [employer] It Specialist: Memo Gonsales PhD, Phone: [phone] PERFORMED BY: [place] [address] PATHOLOGIST LABORATORY INSPECTOR LOUIS MOREAU M.D. Performed By: #### F RUC #### [facility] , #### CBC, BMP #### [facility] [address] [place] [address] Fructosamine [Moles/volume] in Serum or PlasmaOrdered By: Sha Keller on 09-18-2023 Fructosamine [Moles/Vol] 223 umol/L 0-285 [facility] Comment on above: Published reference interval for apparently healthysubjects between age 20 and 60 is 205 - 285 umol/L and in apoorly controlled diabetic population is 228 - 563 umol/Lwith a mean of 396 umol/L.Performed at: [employer] [address] [id number] Director: Memo Gonsales PhD, Phone: [phone] Glucose [Mass/volume] in Ser um or PlasmaOrdered By: Sha Keller on 09-18-2023 Glucose [Mass/Vol] 110 mg/dL High 70-100 [facility] Comment on above: ADA recommended refe rence rangeRandom Glucose Reference Range is dependent on time and content of last meal. Glucose of more than 200 mg/dL in a nonstressed, ambulatory subject supports the diagnosis of Diabetes Mellitus. Result Comment: [place] Glucose Reference Range is dependent on time and content of last meal. Glucose of more than 200 mg/dL in a nonstressed, ambulatory subject supports the diagnosis of Diabetes Mellitus. ADA recommended reference range Performed By: #### F RUC #### [facility] , #### CBC, BMP #### [address] Glucose [Mass/volume] in Uri ne by Test stripOrdered By: Sha Keller on 09-18-2023 Glucose Test strip (U) [Mass/Vol] Normal mg/dL Normal [facility] Hematocrit [Volume Fraction] of Blood by Automated countOrdered By: Sha Keller on 09-18-2023 Hematocrit (Bld) [Volume fraction] 39.9 % Normal 34.0-46.4 [facility] Comment on above: Performed By: #### F RUC #### [facility] , #### CBC, BMP #### [facility] [address] [place] [address] Hemoglobin Test strip Ql (U) Ordered By: Sha Keller on 09-18-2023 Hemoglobin Ql (U) Negative Negative [facility] Hemoglobin [Mass/volume] in BloodOrdered By: Sha Keller on 09-18-2023 Hemoglobin (Bld) [Mass/Vol] 13.4 g/dL Normal 11.8-15.4 [facility] Comment on above: Performed By: #### F RUC #### [facility] , #### CBC, BMP #### [facility] [address] [place] [address] [place] Hyaline casts [#/area] in Ur ine sediment by Automated countOrdered By: Sha Keller on 09-18-2023 Hyaline casts Auto (Urine sed) [#/Area] None [LPF] 0-8 [facility] Ketones [Presence] in Urine by Test stripOrdered By: Sha Keller on 09-18-2023 Ketones Ql (U) Negative Normal Negative [facility] Comment on above: Order Comment: Name Collection Type:: Clean-Voided Midstream Performed By: #### A DDONUAPLUS, CUU ####[facility] [address] Leukocyte esterase [Presence ] in Urine by Test stripOrdered By: Sha Keller on 09-18-2023 Leukocyte esterase Test strip Ql (U) 1+ High Negative [facility] Comment on above: Order Comment: Name Collection Type:: Clean-Voided Midstream Performed By: #### A DDONUAPLUS, CUU ####[facility] Leukocytes [#/area] in Urine sediment by Automated countOrdered By: Sha Keller on 09-18-2023 WBC Auto (Urine sed) [#/Area] 5-9 [HPF] High 0-4 [facility] Leukocytes [#/volume] correc janelle for nucleated erythrocytes in Blood by Automated counOrdered By: Sha Keller on 09-18-2023 WBC corrected for nucl RBC Auto (Bld) [#/Vol] 9.1 10*3/uL 3.8-11.6 [facility] Leukocytes [#/volume] in Blo od by Automated countOrdered By: Sha Keller on 09-18-2023 WBC (Bld) [#/Vol] 9.1 10*3/uL Normal 3.8-11.6 [facility] Comment on above: Performed By: #### F RUC #### [facility] , #### CBC, BMP #### [facility] [address] [place] [address] [place] Lymphocytes [#/volume] in Bl ood by Automated countOrdered By: Sha Keller on 09-18-2023 Lymphocytes (Bld) [#/Vol] 2.4 10*3/uL Normal 1.00-4.8 [facility] Comment on above: Performed By: #### F RUC #### [facility] , #### CBC, BMP #### [address] Lymphocytes/100 leukocytes i n Blood by Automated countOrdered By: Sha Keller on 09-18-2023 Lymphocytes/100 WBC (Bld) 25.8 % Normal . [facility] Comment on above: Performed By: #### F RUC #### [facility] , #### CBC, BMP #### [address] MCH [Entitic mass] by Automa janelle countOrdered By: Sha Keller on 09-18-2023 MCH (RBC) [Entitic mass] 28.3 pg Normal 24.7-34.3 [facility] Comment on above: Performed By: #### F RUC #### [facility] , #### CBC, BMP #### [address] MCHC Auto (RBC) [Mass/Vol]Or dered By: Sha Keller on 09-18-2023 MCHC (RBC) [Mass/Vol] 33.5 g/dL 32.0-35.0 [facility] MCV [Entitic volume] by Auto mated countOrdered By: hSa Keller on 09-18-2023 MCV (RBC) [Entitic vol] 84.4 fL Normal 80-100 [facility] Comment on above: Performed By: #### F RUC #### [facility] , #### CBC, BMP #### [address] Mucus [Presence] in Urine by AutomatedOrdered By: Sha Keller on 09-18-2023 Mucus Auto Ql (U) Rare [LPF] [facility] Neutrophils [#/volume] in Bl ood by Automated countOrdered By: Sha Keller on 09-18-2023 Neutrophils (Bld) [#/Vol] 5.6 10*3/uL Normal 1.8-7.7 [facility] Comment on above: Performed By: #### F RUC #### [facility] , #### CBC, BMP #### [facility] [address] Nitrite Test strip Ql (U)Ord ered By: Sha Keller on 09-18-2023 Nitrite Ql (U) Negative Negative [facility] No Panel InformationOrdered By: Sha Keller on 09-18-2023 Estimated GFR (CKD-EPI) > 60.0 mL/Min [facility] Creatinine Clearance (Chem N/A [facility] Nucleated erythrocytes [Pres ence] in Blood by Automated countOrdered By: Sha Keller on 09-18-2023 Nucleated RBC Auto Ql (Bld) 0.1 /100{WBC} 0-0.5 [facility] PST Type and Screenon 2023 ABO and Rh group Nom (Bld) Blood group O Rh(D) positive Normal [facility] Comment on above: Order Comment: Date of Surgery: [id number] Result Comment: PERF ORMED BY: [place] [address] PATHOLOGIST LABORATORY INSPECTOR LOUIS MOREAU M.D. Platelet mean volume [Entiti c volume] in Blood by Automated countOrdered By: Sha Keller on 09-18-2023 Platelet mean volume (Bld) [Entitic vol] 8.2 fL Normal 6.3-10.7 [facility] Comment on above: Performed By: #### F RUC #### [facility] , #### CBC, BMP #### [facility] [address] [place] [address] [place] Platelets [#/volume] in Bloo d by Automated countOrdered By: Sha Keller on 09-18-2023 Platelets (Bld) [#/Vol] 353 10*3/uL Normal 150-450 [facility] Comment on above: Performed By: #### F RUC #### [facility] , #### CBC, BMP #### [place] [address] [place] Potassium [Moles/volume] in Serum or PlasmaOrdered By: Sha Keller on 09-18-2023 Potassium [Moles/Vol] 4.2 mmol/L Normal 3.5-5.1 [facility] Comment on above: Performed By: #### F RUC #### [facility] , #### CBC, BMP #### [address] Protein Test strip (U) [Mass /Vol]Ordered By: Sha Keller on 09-18-2023 Protein (U) [Mass/Vol] Negative Negative [facility] Serum or plasma anion gap de terminationOrdered By: Sha Keller on 09-18-2023 Anion gap [Moles/Vol] 11.6 mmol/L Normal 6.0-15.0 [facility] Comment on above: Performed By: #### F RUC #### [facility] , #### CBC, BMP #### [address] Sodium [Moles/volume] in Ser um or PlasmaOrdered By: Sha Keller on 09-18-2023 Sodium [Moles/Vol] 143 mmol/L Normal 136-145 [facility] Comment on above: Performed By: #### F RUC #### [facility] , #### CBC, BMP #### [facility] [address] [place] [address] Specific gravity Test strip (U) [Rel density]Ordered By: Sha Keller on 09-18-2023 Specific gravity (U) [Rel density] 1.018 1.001-1.03 0 [facility] Urea nitrogen [Mass/volume] in Serum or PlasmaOrdered By: Sha Keller on 09-18-2023 Urea nitrogen [Mass/Vol] 19 mg/dL Normal 7-25 [facility] Comment on above: Performed By: #### F RUC #### [facility] , #### CBC, BMP #### [facility] [address] Urine Cultureon 09-18-2023 Bacteria identified Cx Nom (U) 10,000 colonies/ml mixed bacterial skin contaminants 2 Days PERFORMED BY: [place] [address] PATHOLOGIST LABORATORY INSPECTOR LOUIS MOREAU M.D. Normal [facility] Comment on above: Performed By: #### A DDONUAPLUS, CUU ####[address] Urine appearanceOrdered By: Sha Keller on 09-18-2023 Appearance (U) Clear Normal Clear [facility] Comment on above: Order Comment: Name Collection Type:: Clean-Voided Midstream Performed By: #### A DDONUAPLUS, CUU ####[address] Urine culture routineOrdered By: Sha Keller on 09-18-2023 Bacteria identified Cx Nom (U) 2 Days [facility] Urobilinogen Test strip (U) [Mass/Vol]Ordered By: Sha Keller on 09-18-2023 Urobilinogen (U) [Mass/Vol] Normal mg/dL Normal [facility] pH of Urine by Test stripOrd ered By: Sha Keller on 09-18-2023 pH (U) 6.0 [pH] Normal 5.0-9.0 [facility] Comment on above: Order Comment: Name Collection Type:: Clean-Voided Midstream Performed By: #### A DDONUAPLUS, CUU ####[address] A1C with Estimated Average G luon 08-02-2023 Glucose [Mass/Vol] 137 mg/dL Normal [facility] Comment on above: Result Comment: PERF ORMED BY: [facility] [address] [facility] [place] [address] [address] PATHOLOGIST LABORATORY INSPECTOR LOUIS MOREAU M.D. Performed By: #### V [id number], CUMRSA, HGB, ALB, A1C WTH eA ####[facility]#### NICOTINE ####[facility] , Albumin Levelon 08-02-2023 Albumin [Mass/Vol] 4.4 g/dL Normal 3.5-5.7 [facility] Comment on above: Performed By: #### V [id number], CUMRSA, HGB, ALB, A1C WTH eA #### [facility] [address] #### NICOTINE #### [facility] , Albumin [Mass/volume] in Ser um or Plasma by Bromocresol green (BCG) dye binding methoOrdered By: Sha Keller on 08-02-2023 Albumin BCG dye [Mass/Vol] 4.4 g/dL 3.5-5.7 [facility] Cotinine [Mass/volume] in Se rum or PlasmaOrdered By: Sha Keller on 08-02-2023 Cotinine [Mass/Vol] <1.0 ng/mL . [facility] Comment on above: This test was develo ped and its performance characteristicsdetermined by [facility]. It has not been cleared orapproved by the Food and Drug Administration.Cotinine levels greater than 20.0 are consistent with theuse of tobacco or tobacco cessation products.Performed at: [address] [id number] Director: Ria Leong MD, Phone: [phone] Glucose mean value [Mass/vol ume] in Blood Estimated from glycated hemoglobinOrdered By: Sha Keller on 08-02-2023 Average glucose Estimated from glycated hemoglobin (Bld) [Mass/Vol] 137 mg/dL [facility] Hemoglobin A1c percentageOrd ered By: Sha Keller on 08-02-2023 HbA1c (Bld) [Mass fraction] 6.4 % High 4.3-5.6 [facility] Comment on above: Increased risk for d iabetes: 5.7 - 6.4diabetes: >6.4glycemic control for adults with diabetes: <7.0 Result Comment: Incr eased risk for diabetes: 5.7 - 6.4 diabetes: >6.4 glycemic control for adults with diabetes: <7.0 Performed By: #### V [id number], CUMRSA, HGB, ALB, A1C WTH eA ####[address]#### NICOTINE ####[facility] , Hemoglobin [Mass/volume] in BloodOrdered By: Sha Keller on 08-02-2023 Hemoglobin (Bld) [Mass/Vol] 14.0 g/dL Normal 11.8-15.4 [facility] Comment on above: Result Comment: PERF ORMED BY: [place] [address] PATHOLOGIST LABORATORY INSPECTOR LOUIS MOREAU M.D. Performed By: #### V [id number], CUMRSA, HGB, ALB, A1C WTH eA #### [address] #### NICOTINE #### [facility] , MRSA Cultureon 08-02-2023 MRSA Culture MRSA Culture Results No MRSA Isolated 2 Days PERFORMED BY: [place] [address] PATHOLOGIST LABORATORY INSPECTOR LOUIS MOREAU M.D. Normal [facility] Comment on above: Performed By: #### V [id number], CUMRSA, HGB, ALB, A1C WTH eA ####[address]#### NICOTINE ####[facility] , Nicotine [Mass/volume] in Se rum or PlasmaOrdered By: Sha Keller on 08-02-2023 Nicotine [Mass/Vol] <1.0 ng/mL . [facility] Comment on above: This test was develo ped and its performance characteristicsdetermined by [facility]. It has not been cleared orapproved by the Food and Drug Administration.Nicotine levels greater than 2.0 are consistent with theuse of tobacco or tobacco cessation products. Nicotine/Cotinine Bloodon Cotinine, Blood <1.0 Normal . [facility] Comment on above: Result Comment: This test was developed and its performance characteristics determined by [facility]. It has not been cleared or approved by the Food and Drug Administration. Cotinine levels greater than 20.0 are consistent with the use of tobacco or tobacco cessation products. Performed at: [address] [id number] Project [employer] It Specialist: Ria Leong MD, Phone: [phone] PERFORMED BY: [facility] [address] [place] [address] PATHOLOGIST LABORATORY INSPECTOR LOUIS MOREAU M.D. Performed By: #### V [id number], CUMRSA, HGB, ALB, A1C WTH eA ####[facility] [place] [id number] [facility]#### NICOTINE ####[facility] , Nicotine, Blood <1.0 Normal . [facility] Comment on above: Result Comment: This test was developed and its performance characteristics determined by [facility]. It has not been cleared or approved by the Food and Drug Administration. Nicotine levels greater than 2.0 are consistent with the use of tobacco or tobacco cessation products. Performed By: #### V [id number], CUMRSA, HGB, ALB, A1C WTH eA ####[facility] [place] [id number] [place]#### NICOTINE ####[facility] , Vitamin D 25 Hydroxy Totalon 08-02-2023 Vitamin D 25 Hydroxy Total 66.2 ng/mL Normal 30-100 [facility] Comment on above: Result Comment: [place] MIN D STATUS 25(OH)VITAMIN D RANGE (ng/mL) Deficient <20 Insufficient 20 to <30 Sufficient 30 to 100 Reference: James Velazquez, Henry BEST, et al. Evaluation,treatment, and prevention of vitamin D deficiency; an Endocrine Society clinical practice guideline. JCEM. 2010; 96(7):1911-30. PERFORMED BY: [facility] [address] [place] [address] PATHOLOGIST LABORATORY INSPECTOR LOUIS MOREAU M.D. Performed By: #### V [id number], CUMRSA, HGB, ALB, A1C WTH eA #### [facility] [address] [place] [address] [facility] #### NICOTINE #### [facility] , Vitamin D+Metabolites [Mass/ volume] in Serum or PlasmaOrdered By: Sha Keller on 08-02-2023 Vitamin D+Metabolites [Mass/Vol] 66.2 ng/mL 30-100 [facility] Comment on above: VITAMIN D STATUS 25( [place])VITAMIN D RANGE (ng/mL) Deficient <20 Insufficient 20 to <30Sufficient 30 to 100Reference: James Velazquez, Henry BEST, et al. Evaluation,treatment, and prevention of vitamin D deficiency; an Endocrine Society clinical practice guideline. JCEM. 2010; 96(7):1911-30. Wound methicillin resistant Staphylococcus aureus (MRSA) cultureOrdered By: Sha Keller on 08-02-2023 MRSA isol Org specific cx Ql (Unsp spec) [facility] - Hematology and Cell countson 07-04-2023 HbA1c (Bld) [Mass fraction] 5.9 % [facility] XR hip LT min 2V(w/wo pelvis )*on 11-10-2022 XR hip LT min 2V(w/wo pelvis)* [facility] [employer] Other XR hip LT min 2V(w/wo pelvis)* [facility] [employer] Other XR hip LT min 2V(w/wo pelvis)* [address] [place] [address] [employer] Other XR hip LT min 2V(w/wo pelvis)* [place] [address] [employer] Other XR hip LT min 2V(w/wo pelvis)* XRay Report [employer] Other XR hip LT min 2V(w/wo pelvis)* Signed [employer] Other XR hip LT min 2V(w/wo pelvis)* Patient: Selam Alvarez MR#: [id number] [employer] Other XR hip LT min 2V(w/wo pelvis)* 736 [employer] Other XR hip LT min 2V(w/wo pelvis)* : 1965 Acct:[id number] [employer] Other XR hip LT min 2V(w/wo pelvis)* Age/Sex: 57 / F ADM Date: 11/10/22 [employer] Other XR hip LT min 2V(w/wo pelvis)* Loc: [facility] Room: Type: [facility] [employer] Other XR hip LT min 2V(w/wo pelvis)* Attending Dr: Sha Keller II, MD [employer] Other XR hip LT min 2V(w/wo pelvis)* Copies to: Sha Keller MD [employer] Other XR hip LT min 2V(w/wo pelvis)* Ordering Provider: Sha Keller MD [employer] Other XR hip LT min 2V(w/wo pelvis)* Date of Service: 11/10/22 [employer] Other XR hip LT min 2V(w/wo pelvis)* XR/XR hip LT min 2V(w/wo pelvis)*: Primary osteoarthritis of left hip [employer] Other XR hip LT min 2V(w/wo pelvis)* 2 views left hip with single view pelvis plain film [employer] Other XR hip LT min 2V(w/wo pelvis)* COMPARISON: None [employer] Other XR hip LT min 2V(w/wo pelvis)* HISTORY: Continued left hip pain for one year [employer] Other XR hip LT min 2V(w/wo pelvis)* ACUTE FINDINGS: None [employer] Other XR hip LT min 2V(w/wo pelvis)* DEGENERATIVE CHANGE: Mild bilateral hip and SI joint degeneration. Left pincer and cam deformity. [employer] Other XR hip LT min 2V(w/wo pelvis)* SOFT TISSUE FINDINGS: Unremarkable [employer] Other XR hip LT min 2V(w/wo pelvis)* JOINT EFFUSION: None [employer] Other XR hip LT min 2V(w/wo pelvis)* POSTOP CHANGES: None [employer] Other XR hip LT min 2V(w/wo pelvis)* BONY MINERALIZATION: Adequate [employer] Other XR hip LT min 2V(w/wo pelvis)* XR/XR hip LT min 2V(w/wo pelvis)* [employer] Other XR hip LT min 2V(w/wo pelvis)* IMPRESSION: Minor bilateral hip degeneration. left hip pincer and cam deformity. [employer] Other XR hip LT min 2V(w/wo pelvis)* Impression dictated by: Artur Brannon M.D.11/10/2022 1:01 PM [employer] Other XR hip LT min 2V(w/wo pelvis)* Dictation Location: [place] [address] [employer] Other XR hip LT min 2V(w/wo pelvis)* Transcribed By: ARMANDO 11/10/22 1301 [employer] Other XR hip LT min 2V(w/wo pelvis)* Dictated By: Artur Brannon DO 11/10/22 1248 [employer] Other XR hip LT min 2V(w/wo pelvis)* Signed By: [employer] Other XR hip LT min 2V(w/wo pelvis)* 11/10/22 1301 [employer] Other CBC AUTO DIFFon 11-23-2021 BASO # 0.1 103/ul Normal 0.0-0.1 [facility] Comment on above: Performed By: #### C BC #### [facility] [address] [place] [address] Dr. Bon Koch Basophils/100 WBC (Bld) 1.0 % Normal 0.2-2.0 [facility] Comment on above: Performed By: #### C BC #### [facility] [address] [place] [address] Dr. Bon Koch EO # 0.3 103/ul Normal 0.0-0.7 [facility] Comment on above: Performed By: #### C BC #### [facility] [address] [place] [address] Dr. Bon Koch Eosinophils/100 WBC (Bld) 3.4 % Normal 0.9-7.0 [facility] Comment on above: Performed By: #### C BC #### [facility] [address] [place] [address] Dr. Bon Koch Erythrocyte distribution width (RBC) [Ratio] 13.1 % Normal 11.0-15.0 [facility] Comment on above: Performed By: #### C BC #### [facility] [address] [place] [address] Dr. Bon Koch Hematocrit (Bld) [Volume fraction] 45.9 % Normal 36.0-48.0 [facility] Comment on above: Performed By: #### C BC #### [facility] [address] [place] [address] Dr. Bon Koch Hemoglobin (Bld) [Mass/Vol] 15.1 g/dL Normal 12.0-16.0 [facility] Comment on above: Performed By: #### C BC #### [facility] [address] [place] [address] Dr. Bon Koch IG # 0.03 10e3/ul Normal 0.00-0.03 [facility] Comment on above: Performed By: #### C BC #### [facility] [address] [place] [address] Dr. Bon Koch IG % 0.3 % Normal 0.0-0.5 [facility] Comment on above: Performed By: #### C BC #### [facility] [address] [place] [address] Dr. Bon Koch LYMPH # 2.8 103/ul Normal 1.2-3.8 [facility] Comment on above: Performed By: #### C BC #### [facility] [address] [place] [address] Dr. Bon Koch Lymphocytes/100 WBC (Bld) 28.6 % Normal 20.5-60.0 [facility] Comment on above: Performed By: #### C BC #### [facility] [address] [place] [address] Dr. Bon Koch MANUAL DIFF REQ NO Normal [facility] Comment on above: Performed By: #### C BC #### [facility] [address] [place] [address] Dr. Bon Koch MCH (RBC) [Entitic mass] 29.3 pg Normal 26.7-34.0 [facility] Comment on above: Performed By: #### C BC #### [facility] [address] [place] [address] Dr. Bon Koch MCHC (RBC) [Mass/Vol] 32.9 g/dL Normal 29.9-35.2 [facility] Comment on above: Performed By: #### C BC #### [facility] [address] [place] [address] Dr. Bon Koch MCV (RBC) [Entitic vol] 89.0 fL Normal 81.0-99.0 [facility] Comment on above: Performed By: #### C BC #### [facility] [address] [place] [address] [address] Bon Koch MONO # 0.8 103/ul Normal 0.3-0.8 The [facility] Comment on above: Performed By: #### C BC #### [facility] [address] [place] [address] [address] Bon Koch Monocytes/100 WBC (Bld) 8.2 % Normal 1.7-12.0 [facility] Comment on above: Performed By: #### C BC #### [facility] [address] [place] [address] [address] Bon Koch NEUT # 5.8 103/ul Normal 1.4-6.5 The [facility] Comment on above: Performed By: #### C BC #### [facility] [address] [place] [address] Dr. Bon Koch Neutrophils/100 WBC (Bld) 58.5 % Normal 43.0-75.0 [facility] Comment on above: Performed By: #### C BC #### [facility] [address] [place] [address] Dr. Bon Koch Platelet mean volume (Bld) [Entitic vol] 9.6 fL Normal 9.5-13.5 The [facility] Comment on above: Performed By: #### C BC #### [facility] [address] [place] [address] Dr. Bon Koch PLT 316 103/ul Normal 150-450 The [facility] Comment on above: Performed By: #### C BC #### [facility] [address] [place] [address] Dr. Bon Koch RBC 5.16 106/ul Normal 4.20-5.40 The [facility] Comment on above: Performed By: #### C BC #### [facility] [address] [place] [address] Dr. Bon Koch WBC 9.9 103/ul Normal 4.0-11.0 [facility] Comment on above: Performed By: #### C BC #### [facility] [address] [place] [address] Dr. Bon Koch GLYCOHEMOGLOBIN A1Con 2021 ADA RECOMMENDATION SEE BELOW Normal [facility] Comment on above: Result Comment: ADA RECOMMENDED LIMIT 4.0 - 6.0 ADA THERAPEUTIC TARGET < 7.0 ACTION SUGGESTED > 7.0 Performed By: #### A 1C #### [facility] [address] [place] [address] [address] Bon Koch Glucose [Mass/Vol] 126 mg/dL Critically high 74-106 [facility] Comment on above: Performed By: #### A 1C #### [facility] [address] [place] [address] Dr. Bon Koch Performed By: #### C MP, LIPID #### [facility] [address] [place] [address] Dr. Bon Koch HbA1c (Bld) [Mass fraction] 6.0 % Normal 4.5-6.2 [facility] Comment on above: Performed By: #### A 1C #### [facility] [address] [place] [address] Dr. Bon Koch LIPID PROFILEon 11-23-2021 CHOL-HDL RATIO NORM SEE BELOW Normal [facility] Comment on above: Result Comment: 3.3 - 4.4 LOW RISK 4.4 - 7.1 AVERAGE RISK 7.1 - 11.0 MODERATE RISK >11.0 HIGH RISK Performed By: #### C MP, LIPID #### [facility] [address] [place] [address] Dr. Bon Koch Cholesterol [Mass/Vol] 157 mg/dL Normal <=200 [facility] Comment on above: Performed By: #### C MP, LIPID #### [facility] [address] [place] [address] Dr. Bon Koch Cholesterol in HDL [Mass/Vol] 43 mg/dL Normal 40-60 [facility] Comment on above: Performed By: #### C MP, LIPID #### [facility] [address] [place] [address] Dr. Bon Koch Cholesterol in LDL [Mass/Vol] 83.2 mg/dL Normal [facility] Comment on above: Performed By: #### C MP, LIPID #### [facility] [address] [place] [address] [address] Bon Koch Cholesterol.total/Cho lesterol in HDL [Mass ratio] 3.7 {ratio} Normal [facility] Comment on above: Performed By: #### C MP, LIPID #### [facility] [address] [place] [address] [address] Bon Koch HDL NORMAL > or = 60 mg/dl - LO W CARDIOVASCULAR RISK <40 mg/dl - HIGH CARDIOVASCULAR RISK Normal [facility] Comment on above: Performed By: #### C MP, LIPID #### [facility] [address] [place] [address] [address] Bon Koch LDL CALC NORMAL SEE BELOW Normal [facility] Comment on above: Result Comment: <100 mg/dl OPTIMAL 100 - 129 mg/dl NEAR OR ABOVE OPTIMAL 130 - 159 mg/dl BORDERLINE HIGH 160 - 189 mg/dl HIGH >190 mg/dl VERY HIGH Performed By: #### C MP, LIPID #### [facility] [address] [place] [address] [address] Bon Koch Triglyceride [Mass/Vol] 154 mg/dL Critically high <=150 [facility] Comment on above: Performed By: #### C MP, LIPID #### [facility] [address] [place] [address] [address] Bon Koch VLDL CALC 30.8 mg/dL Normal [facility] Comment on above: Performed By: #### C MP, LIPID #### [facility] [address] [place] [address] [address] Bon Koch MG MAMM SCREEN 3D TIKA CADon 11-23-2021 MG MAMM SCREEN 3D TIKA CAD Patient: SELAM ALVAREZ Exam Date: 11/23/2021 : 1965 Gender:F Ordering : DR JAYRO JEFFERS . Admission #: [id number] Family : Order #: [id number] CLICK HERE TO VIEW EXAM RADIOLOGY REPORT PROCEDURE: MAMMOGRAM SCREENING 3D BILATERAL CAD COMPARISON: MG MAMM SCREEN TIKA W CAD, 10/30/2019. MG MAMM SCREEN 3D TIKA CAD, 11/12/2020. INDICATIONS: Screening mammography Calculator Name NCI Breast Cancer Risk Assessment Tool 5 Year Breast Cancer Risk 1.10% Lifetime Breast Cancer Risk 7.40% Personal Breast Cancer No Personal Ovarian Cancer No Treatments None Family Cancers None LOCATION: [facility] BREAST COMPOSITION: Scattered areas fibroglandular density. FINDINGS: DIAGNOSTIC CATEGORY 1--NEGATIVE. NO CHANGE FROM COMPARISON ASSESSMENT. Scattered benign-appearing calcifications are present. RIGHT BREAST: No significant suspicious finding. LEFT BREAST: No significant suspicious finding. RECOMMENDATIONS: ROUTINE MAMMOGRAM AND CLINICAL EVALUATION IN 12 MONTHS. PLEASE NOTE: A NORMAL MAMMOGRAM DOES NOT EXCLUDE THE POSSIBILITY OF BREAST CANCER. A CLINICALLY SUSPICIOUS PALPABLE LUMP SHOULD BE BIOPSIED. Dictated by: Nicole Loyd MD on 11/23/2021 at 08:21 Approved by: Nicole Loyd MD on 11/23/2021 at 08:23 Normal [facility] PROF 14(COMP METB)on 022 Albumin [Mass/Vol] 3.8 g/dL Normal 3.4-5.0 [facility] Comment on above: Performed By: #### C MP, LIPID #### [facility] [address] [place] [address] Dr. Bon Koch Albumin/Globulin [Mass ratio] 1.1 {ratio} Normal [facility] Comment on above: Performed By: #### C MP, LIPID #### [facility] [address] [place] [address] Dr. Bon Koch ALP [Catalytic activity/Vol] 67 U/L Normal 46-116 [facility] Comment on above: Performed By: #### C MP, LIPID #### [facility] [address] [place] [address] Dr. Bon Koch ALT [Catalytic activity/Vol] 28 U/L Normal 14-59 [facility] Comment on above: Performed By: #### C MP, LIPID #### [facility] [address] [place] [address] Dr. Bon Koch Anion gap [Moles/Vol] 12.7 mmol/L Normal [facility] Comment on above: Performed By: #### C MP, LIPID #### [facility] [address] [place] [address] Dr. Bon Koch AST [Catalytic activity/Vol] 13 U/L Critically low 15-37 [facility] Comment on above: Performed By: #### C MP, LIPID #### [facility] [address] [place] [address] Dr. Bon Koch Bilirubin [Mass/Vol] 0.3 mg/dL Normal 0.2-1.0 [facility] Comment on above: Performed By: #### C MP, LIPID #### [facility] [address] [place] [address] Dr. Bon Koch Calcium [Mass/Vol] 8.7 mg/dL Normal 8.5-10.1 [facility] Comment on above: Performed By: #### C MP, LIPID #### [facility] [address] [place] [address] Dr. Bon Koch Chloride [Moles/Vol] 106 mmol/L Normal 98-107 [facility] Comment on above: Performed By: #### C MP, LIPID #### [facility] [address] [place] [address] Dr. Bon Koch CO2 [Moles/Vol] 26.1 mmol/L Normal 21.0-32.0 [facility] Comment on above: Performed By: #### C MP, LIPID #### [facility] [address] [place] [address] Dr. Bon Koch Creatinine [Mass/Vol] 0.62 mg/dL Normal 0.55-1.02 [facility] Comment on above: Performed By: #### C MP, LIPID #### [facility] [address] [place] [address] Dr. Bon Koch EGFR-AF ZIMBABWEAN >60 Normal >=60 [facility] Comment on above: Performed By: #### C MP, LIPID #### [facility] [address] [place] [address] Dr. Bon oKch EGFR-NON AF ZIMBABWEAN >60 Normal >=60 [facility] Comment on above: Performed By: #### C MP, LIPID #### [facility] [address] [place] [address] Dr. Bon Koch Globulin (S) [Mass/Vol] 3.4 g/dL Normal [facility] Comment on above: Performed By: #### C MP, LIPID #### [facility] [address] [place] [address] Dr. Bon Koch Potassium [Moles/Vol] 4.0 mmol/L Normal 3.5-5.1 [facility] Comment on above: Performed By: #### C MP, LIPID #### [facility] [address] [place] [address] Dr. Bon Koch Protein [Mass/Vol] 7.2 g/dL Normal 6.4-8.2 [facility] Comment on above: Performed By: #### C MP, LIPID #### [facility] [address] [place] [address] Dr. Bon Koch Sodium [Moles/Vol] 141 mmol/L Normal 136-145 [facility] Comment on above: Performed By: #### C MP, LIPID #### [facility] [address] [place] [address] Dr. Bon Koch Urea nitrogen [Mass/Vol] 15.0 mg/dL Normal 7.0-18.0 [facility] Comment on above: Performed By: #### C MP, LIPID #### [facility] [address] [place] [address] Dr. Bon Koch Urea nitrogen/Creatinine [Mass ratio] 24.2 mg/mg Normal [facility] Comment on above: Performed By: #### C MP, LIPID #### [facility] [address] [place] [address] Dr. Bon Koch XR DEXA BONE DENSITYon 11-23 XR DEXA BONE DENSITY EXAMINATION: XR DEX A BONE DENSITY, 11/23/2021 7:32 AM EDT HISTORY: Gynecologic examination COMPARISON: DEXA bone densitometry 10/30/2019 TECHNIQUE: Dual-energy X-ray absorptiometry (DEXA) bone density study performed for the axial skeleton. FINDINGS: SPINE ANALYSIS: Average bone mineral density is 0.895 g/cm2. T-score (standard deviation relative to young adult mean): -2.4 . -8.0% change since prior study. HIP ANALYSIS: Lowest bone mineral density is within the femoral trochanter, 0.679 g/cm2. T-score (standard deviation relative to young adult mean): -1.5 . -7.9% change is prior study. IMPRESSION: [employer] Classification: Osteopenia - Moderate Fracture Risk Electronically authenticated by: MYLA ANDERSON Date: 2021-11-23 08:21 Normal [facility] PAP ACOG PANEL 2: 30 to 65on 11-18-2021 . . Normal [facility] Comment on above: Result Comment: Perf ormed at: WB Performed By: #### [id number] #### [facility] [address] [address] [address] Bon Koch Age Gdln ACOG Testing 30-65 [facility] Comment on above: Performed By: #### [id number] #### [facility] [address] [address] [address] Bon Koch DIAGNOSIS: Comment Normal [facility] Comment on above: Result Comment: NEGA TIVE FOR INTRAEPITHELIAL LESION OR MALIGNANCY. Performed at: WB Performed By: #### [id number] #### [facility] [address] [address] [address] Bon Koch HPV Aptima Negative Normal Negative [facility] Comment on above: Result Comment: This nucleic acid amplification test detects fourteen high-risk HPV types (16,18,31,33,35,39,45,51,52,56,58,59,66,68) without differentiation. Performed at: =G Performed By: #### [id number] #### [facility] [address] [address] [address] Bon Koch Methodology: Comment [facility] Comment on above: Result Comment: This liquid based ThinPrep(R) pap test was screened with the use of an image guided system. Performed at: WB Performed By: #### [id number] #### [facility] [address] [address] [address] Bon Koch Note: Comment Normal [facility] Comment on above: Result Comment: The Pap smear is a screening test designed to aid in the detection of premalignant and malignant conditions of the uterine cervix. It is not a diagnostic procedure and should not be used as the sole means of detecting cervical cancer. Both false-positive and false-negative reports do occur. . Performed at: WB Performed By: #### [id number] #### [facility] [address] [address] [address] Bon Koch Performed by: Comment Normal [facility] Comment on above: Result Comment: Suzi Brown, Improvement Advisor (ASCP) Performed at: WB Performed By: #### [id number] #### [facility] [address] [place], [place] [address] Dr. Bon Koch Specimen adequacy: Comment Normal [facility] Comment on above: Result Comment: Sati sfactory for evaluation. Endocervical and/or squamous metaplastic cells (endocervical component) are present. Performed at: WB Performed By: #### [id number] #### [facility] [address] [address] [address] Bon Koch XR hip LT min 2V(w/wo pelvis )*on 07-14-2021 XR hip LT min 2V(w/wo pelvis)* [facility] [employer] Other XR hip LT min 2V(w/wo pelvis)* [facility] [employer] Other XR hip LT min 2V(w/wo pelvis)* [address] [place] [address] [employer] Other XR hip LT min 2V(w/wo pelvis)* [place] [address] [employer] Other XR hip LT min 2V(w/wo pelvis)* XRay Report [employer] Other XR hip LT min 2V(w/wo pelvis)* Signed [employer] Other XR hip LT min 2V(w/wo pelvis)* Patient: Selam Alvarez MR#: [id number] [employer] Other XR hip LT min 2V(w/wo pelvis)* 736 [employer] Other XR hip LT min 2V(w/wo pelvis)* : 1965 Acct:[id number] [employer] Other XR hip LT min 2V(w/wo pelvis)* Age/Sex: 56 / F ADM Date: 07/14/21 [employer] Other XR hip LT min 2V(w/wo pelvis)* Loc: [facility] Room: Type: [facility] [employer] Other XR hip LT min 2V(w/wo pelvis)* Attending Dr: Sha Keller II, MD [employer] Other XR hip LT min 2V(w/wo pelvis)* Ordering Provider: Sha Keller MD [employer] Other XR hip LT min 2V(w/wo pelvis)* Date of Service: 07/14/21 [employer] Other XR hip LT min 2V(w/wo pelvis)* XR/XR hip LT min 2V(w/wo pelvis)*: Hip pain, left [employer] Other XR hip LT min 2V(w/wo pelvis)* Copies to: Sha Keller MD [employer] Other XR hip LT min 2V(w/wo pelvis)* LEFT HIP - 2 views: [employer] Other XR hip LT min 2V(w/wo pelvis)* CLINICAL HISTORY: Left hip pain for months. [employer] Other XR hip LT min 2V(w/wo pelvis)* COMPARISON: Hip series 08/19/2020 [employer] Other XR hip LT min 2V(w/wo pelvis)* FINDINGS: Moderate degenerative changes of the hips, left greater than right. No acute bony [employer] Other XR hip LT min 2V(w/wo pelvis)* process is seen. [employer] Other XR hip LT min 2V(w/wo pelvis)* XR/XR hip LT min 2V(w/wo pelvis)* [employer] Other XR hip LT min 2V(w/wo pelvis)* IMPRESSION: [employer] Other XR hip LT min 2V(w/wo pelvis)* MODERATE DEGENERATIVE CHANGES OF THE HIPS, LEFT GREATER THAN RIGHT. NO ACUTE BONY PROCESS.. [employer] Other XR hip LT min 2V(w/wo pelvis)* Impression dictated by: Jose Luis Wing Jr., D.OFrancoise07/14/2021 2:42 PM [employer] Other XR hip LT min 2V(w/wo pelvis)* Dictation Location: [place] [address] [employer] Other XR hip LT min 2V(w/wo pelvis)* Transcribed By: ARMANDO 07/14/21 1442 [employer] Other XR hip LT min 2V(w/wo pelvis)* Dictated By: Jose Luis Wing Jr, 07/14/21 1424 [employer] Other XR hip LT min 2V(w/wo pelvis)* Signed By: [employer] Other XR hip LT min 2V(w/wo pelvis)* 07/14/21 1442 [employer] Other US EXT NON VASC LIMITED LTon 12-30-2020 US EXT NON VASC LIMITED LT EXAMINATION: US EXT NON VASC LIMITED LT HISTORY: Muscle pain ; distal gluteal/proximal thigh region pain for 2 years COMPARISON: No relevant comparison available. FINDINGS: Percutaneous ultrasound evaluation in the region of chronic pain demonstrates normal appearing subcutaneous fat and deeper musculature; no fluid collection, mass, or architectural distortion. IMPRESSION: 1. No abnormal or suspicious findings to account for patient's symptoms. Electronically authenticated by: MYLA ANDERSON Date: 2020-12-30 07:08 Normal [facility] MRI HIP LT WO CONon 12-11-19 21 MRI HIP LT WO CON EXAMINATION: MRI HIP LT WO CON HISTORY: Pain of left hip joint COMPARISON: No relevant comparison available. TECHNIQUE: A comprehensive examination was performed utilizing a variety of imaging planes and imaging parameters to optimize visualization of suspected pathology. Images were performed without contrast. FINDINGS: FEMORAL HEAD: Right joint space narrowing and marginal osteophyte formation consistent with mild osteoarthropathy. Extensive signal abnormality identified within the left femoral head with contour deformity of the femoral head subchondral area of fluid signal and marginal osteophyte formation ACETABULUM: Mild right hip osteoarthropathy. Moderate to severe left hip osteoarthropathy with bone edema and marginal osteophyte formation OTHER BONES: Area of focal signal abnormality measuring 1.7 cm right intertrochanteric hip best seen on coronal images 28 demonstrating decreased T1 and increased STIR signal is is a narrow zone of transition and a benign process is favored LABRUM: No definite labral tear EFFUSIONS: None. No synovitis or loose bodies. BURSAE: Normal. No evidence of iliopsoas or trochanteric bursitis. TENDONS: Normal. Normal gluteus tendons, iliopsoas tendon, and hamstring origin. MUSCLES: Normal. No tear or strain. No inappropriate atrophy. OTHER: Negative. IMPRESSION: Mild right hip osteoarthritis Severe left hip osteoarthritis Electronically authenticated by: NICOLE LOYD Date: 2020-12-10 07:19 Normal [facility] MRI LSPINE WO CONon 12-11-19 MRI LSPINE WO CON EXAMINATION: MRI LSP INE WO CON HISTORY: Disorder of sacrum lumbar back pain, left leg radiculopathy, left leg weakness COMPARISON: 12/17/2019 TECHNIQUE: A variety of imaging planes and parameters were utilized for visualization of suspected pathology. FINDINGS: For the purposes of numbering, sagittal T2 image # 9 extends from the T10 vertebral body superiorly to the S4 level inferiorly. PARASPINAL AREA: Normal with no visible mass. BONES: Normal alignment with no acute fracture or spondylolisthesis. Stable 1.5 cm area of signal abnormality in the S2 vertebral body with no cortical breakthrough. Lack of change would suggest a benign lesion such as a hemangioma CORD/CAUDA EQUINA: Normal caliber, contour, and signal intensity. 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 L1-L2: No significant disc/facet abnormality, spinal stenosis, or foraminal stenosis. L2-L3: No significant disc/facet abnormality, spinal stenosis, or foraminal stenosis. L3-L4: No significant disc/facet abnormality, spinal stenosis, or foraminal stenosis. L4-L5: No significant disc/facet abnormality, spinal stenosis, or foraminal stenosis. L5-S1: Moderate disc space narrowing and disc desiccation. Mild posterior disc/osteophyte complex slightly progressed from the prior exam. No definite central or foraminal stenosis IMPRESSION: Stable lesion in the S2 vertebral body. Lack of interval change would suggest a benign process such as meningioma Slight interval progression of degenerative changes at L5-S1 with no central or foraminal stenosis Electronically authenticated by: NICOLE LOYD Date: 2020-12-10 07:14 Normal [facility] Vital Signs Date Time Vital Sign Value Performing Clinician Facility 01-09-2024 16:04-0400 Body height 157.5 cm Jacob Goelanjel REINADIELECTRIC TESTER Work Phone: [facility] 01-09-2024 16:04-0400 Body mass index (BMI) [Ratio] 43.42 kg/m2 Jacob Goelanjel GARZA-DIELECTRIC TESTER Work Phone: [facility] [employer] [facility] 01-09-2024 16:04-0400 Body temperature 98.2 [degF] Jacob Goelanjel GARZA-DIELECTRIC TESTER Work Phone: [facility] [employer] 01-09-2024 16:04-0400 Body weight 107.68 kg Jacob [facility]elanjel GARZA-DIELECTRIC TESTER [facility] 01-09-2024 16:04-0400 Diastolic blood pressure 80 mm[Hg] Jacob Goelanjel GARZA-DIELECTRIC TESTER [facility] 01-09-2024 16:04-0400 Heart rate 86 /min Jacob Goelanjel GARZAQuotify TechnologyDIELECTRIC TESTER [facility] 01-09-2024 16:04-0400 Respiratory rate 18 /min Jacob Goel RUBBER PRINTING MACHINE OPERATOR-DIELECTRIC TESTER Work Phone: [facility] 01-09-2024 16:04-0400 SaO2% (BldA) [Mass fraction] 96 % Jacob Goel RUBBER PRINTING MACHINE OPERATOR-DIELECTRIC TESTER Work Phone: [facility] 01-09-2024 16:04-0400 Systolic blood pressure 120 mm[Hg] Jacob Goel RUBBER PRINTING MACHINE OPERATOR-DIELECTRIC TESTER Work Phone: [facility] 10-03-2023 11:37-0400 Body temperature 97.8 [degF] DRAFTER (CAD) ELECTRONIC-C Jacob Goel Work Phone: [facility] 10-03-2023 11:37-0400 Diastolic blood pressure 72 mm[Hg] DRAFTER (CAD) ELECTRONIC-C Jacob Goel Work Phone: [facility] 10-03-2023 11:37-0400 Heart rate 69 /min DRAFTER (CAD) ELECTRONIC-C Jacob Goel Work Phone: [facility] 10-03-2023 11:37-0400 Respiratory rate 20 /min DRAFTER (CAD) ELECTRONIC-C Jacob Goel Work Phone: [facility] 10-03-2023 11:37-0400 SaO2% (BldA) [Mass fraction] 96 % DRAFTER (CAD) ELECTRONIC-C Jacob Goel Work Phone: [facility] 10-03-2023 11:37-0400 Systolic blood pressure 103 mm[Hg] DRAFTER (CAD) ELECTRONIC-C Jacob Goel Work Phone: [facility] 10-03-2023 06:55-0400 Body weight 98.5 kg DRAFTER (CAD) ELECTRONIC-C Jacob Goel Work Phone: [facility] 10-02-2023 18:10-0400 Inhaled oxygen flow rate 10 L/min DRAFTER (CAD) ELECTRONIC-C Jacob Goel Work Phone: [facility] 10-02-2023 12:21-0400 Body height 157.48 cm DRAFTER (CAD) ELECTRONIC-C Jacob Goel Work Phone: [facility] 10-02-2023 12:21-0400 Body mass index (BMI) [Ratio] 40.3 kg/m2 DRAFTER (CAD) ELECTRONIC-C Jacob Goel Work Phone: [facility] 08-22-2023 15:10-0400 Body height 154.94 cm DRAFTER (CAD) ELECTRONIC-C Jacob Goel Work Phone: [facility] 08-22-2023 15:10-0400 Body mass index (BMI) [Ratio] 42.2 kg/m2 DRAFTER (CAD) ELECTRONIC-C Jacob Goel Work Phone: [facility] 08-22-2023 15:10-0400 Body weight 101.32 kg DRAFTER (CAD) ELECTRONIC-C Jacob Goel Work Phone: [facility] 08-22-2023 15:10-0400 Diastolic blood pressure 77 mm[Hg] DRAFTER (CAD) ELECTRONIC-C Jacob Goel Work Phone: [facility] 08-22-2023 15:10-0400 Heart rate 91 /min DRAFTER (CAD) ELECTRONIC-C Jacob Goel Work Phone: [facility] 08-22-2023 15:10-0400 Respiratory rate 18 /min DRAFTER (CAD) ELECTRONIC-C Jacob Goel Work Phone: [facility] 08-22-2023 15:10-0400 SaO2% (BldA) [Mass fraction] 97 % DRAFTER (CAD) ELECTRONIC-C Jacob Goel Work Phone: [facility] 08-22-2023 15:10-0400 Systolic blood pressure 120 mm[Hg] DRAFTER (CAD) ELECTRONIC-C Jacob Goel Work Phone: [facility] 08-02-2023 14:48-0400 Body height 154.94 cm DRAFTER (CAD) ELECTRONIC-C Jacob Goel Work Phone: [facility] 08-02-2023 14:48-0400 Body mass index (BMI) [Ratio] 42.5 kg/m2 DRAFTER (CAD) ELECTRONIC-C Jacob Goel Work Phone: [facility] 08-02-2023 14:48-0400 Body weight 102.05 kg DRAFTER (CAD) ELECTRONIC-C Jacob Goel Work Phone: [facility] 07-11-2023 15:20-0400 Body height 154.94 cm DRAFTER (CAD) ELECTRONIC-C Jacob Goel Work Phone: [facility] 07-11-2023 15:20-0400 Body mass index (BMI) [Ratio] 43.2 kg/m2 DRAFTER (CAD) ELECTRONIC-C Jacob Goel Work Phone: [facility] 07-11-2023 15:20-0400 Body weight 103.87 kg DRAFTER (CAD) ELECTRONIC-C Jacob Goel Work Phone: [facility] 07-11-2023 15:20-0400 Diastolic blood pressure 84 mm[Hg] DRAFTER (CAD) ELECTRONIC-C Jacob Goel Work Phone: [facility] 07-11-2023 15:20-0400 Heart rate 78 /min DRAFTER (CAD) ELECTRONIC-C Jacob Goel Work Phone: [facility] 07-11-2023 15:20-0400 Respiratory rate 20 /min DRAFTER (CAD) ELECTRONIC-C Jacob Goel Work Phone: [facility] 07-11-2023 15:20-0400 SaO2% (BldA) [Mass fraction] 98 % DRAFTER (CAD) ELECTRONIC-C Jacob Goel Work Phone: [facility] 07-11-2023 15:20-0400 Systolic blood pressure 125 mm[Hg] DRAFTER (CAD) ELECTRONIC-C Jacob Goel Work Phone: [facility] 05-28-2023 15:02-0400 Body height 154.94 cm DRAFTER (CAD) ELECTRONIC-C Jacob Goel Work Phone: [facility] 05-28-2023 15:02-0400 Body mass index (BMI) [Ratio] 41.8 kg/m2 DRAFTER (CAD) ELECTRONIC-C Jacob Goel Work Phone: [facility] 05-28-2023 15:02-0400 Body weight 100.41 kg DRAFTER (CAD) ELECTRONIC-C Jacob Goel Work Phone: [facility] 05-28-2023 15:02-0400 Diastolic blood pressure 82 mm[Hg] DRAFTER (CAD) ELECTRONIC-C Jacob Goel Work Phone: [facility] 05-28-2023 15:02-0400 Heart rate 92 /min DRAFTER (CAD) ELECTRONIC-C Jacob Goel Work Phone: [facility] 05-28-2023 15:02-0400 Respiratory rate 20 /min DRAFTER (CAD) ELECTRONIC-C Jacob Goel Work Phone: [facility] 05-28-2023 15:02-0400 SaO2% (BldA) [Mass fraction] 94 % DRAFTER (CAD) ELECTRONIC-C Jacob Goel Work Phone: [facility] 05-28-2023 15:02-0400 Systolic blood pressure 129 mm[Hg] DRAFTER (CAD) ELECTRONIC-C Jacob Goel Work Phone: [facility] 04-30-2023 16:04-0500 Body height 154.94 cm PHYSICIAN NO [facility] 04-30-2023 16:04-0500 Body mass index (BMI) [Ratio] 41 kg/m2 PHYSICIAN NO [facility] 04-30-2023 16:04-0500 Body weight 98.45 kg PHYSICIAN NO [facility] 04-30-2023 16:04-0500 Diastolic blood pressure 66 mm[Hg] PHYSICIAN NO [facility] 04-30-2023 16:04-0500 Heart rate 77 /min PHYSICIAN NO [facility] 04-30-2023 16:04-0500 Respiratory rate 18 /min PHYSICIAN NO [facility] 04-30-2023 16:04-0500 SaO2% (BldA) [Mass fraction] 98 % PHYSICIAN NO [facility] 04-30-2023 16:04-0500 Systolic blood pressure 121 mm[Hg] PHYSICIAN NO [facility] 04-04-2023 15:30-0500 Body height 154.94 cm Key Missler Other [facility] 04-04-2023 15:30-0500 Body mass index (BMI) [Ratio] 40.92 kg/m2 Key Missler Other [employer] [facility] [employer] Other 04-04-2023 15:30-0500 Body weight 98.25 kg Key Missler Other [employer] Other 04-04-2023 15:30-0500 Body weight 98.24 kg PHYSICIAN NO [facility] 04-04-2023 15:30-0500 Diastolic blood pressure 73 mm[Hg] Key Missler Other [facility] 04-04-2023 15:30-0500 Respiratory rate 16 /min Key Missler Other [employer] Other 04-04-2023 15:30-0500 SaO2% (BldA) [Mass fraction] 97 % Key Missler Other [employer] Other 04-04-2023 15:30-0500 Systolic blood pressure 110 mm[Hg] Key Missler Other [facility] 02-26-2023 14:00-0500 Body height 154.94 cm Key Missler Other [facility] 02-26-2023 14:00-0500 Body mass index (BMI) [Ratio] 40.26 kg/m2 Key Missler Other [employer] Other 02-26-2023 14:00-0500 Body weight 96.66 kg Key Missler Other [facility] 02-26-2023 14:00-0500 Diastolic blood pressure 82 mm[Hg] Key Missler Other [facility] 02-26-2023 14:00-0500 Respiratory rate 16 /min Key Missler Other [employer] Other 02-26-2023 14:00-0500 SaO2% (BldA) [Mass fraction] 96 % Key Missler Other [employer] Other 02-26-2023 14:00-0500 Systolic blood pressure 125 mm[Hg] Key Missler Other [facility] 02-14-2023 11:30-0500 Body height 154.94 cm Key Missler Other [facility] 02-14-2023 11:30-0500 Body mass index (BMI) [Ratio] 40.01 kg/m2 Key Missler Other [employer] Other 02-14-2023 11:30-0500 Body weight 96.07 kg Key Missler Other [facility] 01-24-2023 14:45-0500 Body height 154.94 cm Key Missler Other [employer] Other 01-24-2023 14:45-0500 Body mass index (BMI) [Ratio] 39.66 kg/m2 Key Missler Other [employer] Other 01-24-2023 14:45-0500 Body weight 95.21 kg Key Missler Other [employer] Other 01-24-2023 14:45-0500 Diastolic blood pressure 77 mm[Hg] Key Missler Other [employer] Other 01-24-2023 14:45-0500 Respiratory rate 16 /min Key Missler Other [employer] Other 01-24-2023 14:45-0500 SaO2% (BldA) [Mass fraction] 96 % Key Missler Other [employer] Other 01-24-2023 14:45-0500 Systolic blood pressure 110 mm[Hg] Key Missler Other [employer] Other 01-03-2023 11:30-0400 Body height 154.94 cm Key Missler Other [employer] Other 01-03-2023 11:30-0400 Body mass index (BMI) [Ratio] 39.3 kg/m2 Key Missler Other [employer] Other 01-03-2023 11:30-0400 Body weight 94.35 kg Key Missler Other [employer] Other 12-11-2022 14:15-0400 Body height 154.94 cm Key Missler Other [employer] Other 12-11-2022 14:15-0400 Body mass index (BMI) [Ratio] 39.52 kg/m2 Key Missler Other [employer] Other 12-11-2022 14:15-0400 Body weight 94.89 kg Key Missler Other [employer] Other 12-11-2022 14:15-0400 Diastolic blood pressure 77 mm[Hg] Key Missler Other [employer] Other 12-11-2022 14:15-0400 Respiratory rate 16 /min Key Missler Other [employer] Other 12-11-2022 14:15-0400 SaO2% (BldA) [Mass fraction] 96 % Key Missler Other [employer] Other 12-11-2022 14:15-0400 Systolic blood pressure 128 mm[Hg] Key Missler Other [employer] Other 07-14-2021 15:30-0400 Body height 157.48 cm [employer] Other [employer] Other 07-14-2021 15:30-0400 Body mass index (BMI) [Ratio] 36.39 kg/m2 [employer] Other [employer] Other 07-14-2021 15:30-0400 Body weight 90.27 kg [employer] Other [employer] Other Encounters Encounter Date Encounter Type Care Provider Facility Start: 01-14-2024 End: 01-14-2024 Bamboo flowsheet Jayro Zeyad DO Work Phone: [facility] Start: 01-14-2024 End: 01-14-2024 Bamboo flowsheet Jayro Zeyad DO Work Phone: [facility] Start: 01-09-2024 End: 01-09-2024 ambulatory JACOB GOEL [facility] Start: 01-09-2024 End: 01-09-2024 Patient encounter procedure Jacob Goel RUBBER PRINTING MACHINE OPERATOR-DIELECTRIC TESTER Work Phone: [facility] [employer] Work Phone: Start: 01-09-2024 End: 01-09-2024 Periodic preventive med est patient 40-64yrs Jacob Goel RUBBER PRINTING MACHINE OPERATOR-DIELECTRIC TESTER Work Phone: [facility] - [facility] Comment on above: Annual physical exam (Primary Dx); Blood tests for routine general physical examination Start: 01-09-2024 End: 01-09-2024 Physical examination Jacob Goel RUBBER PRINTING MACHINE OPERATOR-DIELECTRIC TESTER Work Phone: [facility] Start: 01-09-2024 End: 01-09-2024 ambulatory JACOBALEKSEY GOEL [facility] Start: 12-27-2023 End: 12-27-2023 Patient encounter procedure DRAFTER (CAD) ELECTRONIC-[place] Goel Work Phone: [facility] Work Phone: Start: 12-27-2023 End: 12-27-2023 Patient encounter procedure DRAFTER (CAD) ELECTRONIC-C Jacob Goel Work Phone: [facility] Start: 12-27-2023 End: 12-27-2023 ambulatory DRAFTER (CAD) ELECTRONIC-C Jacob Goel Work Phone: [facility] Work Phone: Start: 11-15-2023 End: 11-15-2023 Patient encounter procedure DRAFTER (CAD) ELECTRONIC-C Jacob Goel Work Phone: [facility] Work Phone: Start: 11-15-2023 End: 11-15-2023 Patient encounter procedure DRAFTER (CAD) ELECTRONIC-C Jacob Goel Work Phone: [facility] Start: 11-15-2023 End: 11-15-2023 ambulatory DRAFTER (CAD) ELECTRONIC-C Jacob Goel Work Phone: [facility] Work Phone: Start: 11-01-2023 End: 11-01-2023 Patient encounter procedure DRAFTER (CAD) ELECTRONIC-C Jacob Goel Work Phone: [facility] Work Phone: Start: 10-18-2023 End: 10-18-2023 Patient encounter procedure DRAFTER (CAD) ELECTRONIC-C Jacob Goel Work Phone: [facility] Work Phone: Start: 10-02-2023 Non-patient / Non-visit DRAFTER (CAD) ELECTRONIC-C Cristobal Goel Work Phone: [facility] [facility] Work Phone: Start: 10-02-2023 End: 10-03-2023 Admission to same day surgery center DRAFTER (CAD) ELECTRONIC-C Jacob Goel Work Phone: [facility] [place] Start: 10-02-2023 End: 10-03-2023 ambulatory DRAFTER (CAD) ELECTRONIC-C Jacob Goel Work Phone: [facility] Work Phone: Start: 09-21-2023 End: 09-21-2023 Patient encounter procedure DRAFTER (CAD) ELECTRONIC-C Jacob Goel Work Phone: [facility] Work Phone: Start: 09-20-2023 End: 09-20-2023 Discharged Recurring DRAFTER (CAD) ELECTRONIC-C Jacob Goel Work Phone: [facility] [place] Start: 09-20-2023 Registered Recurring DRAFTER (CAD) ELECTRONIC-C Rosario Goel Work Phone: [facility] [place] Start: 09-20-2023 End: 09-20-2023 ambulatory DRAFTER (CAD) ELECTRONIC-C Jacob Goel Work Phone: [facility] Work Phone: Start: 09-19-2023 End: 09-19-2023 Patient encounter procedure DRAFTER (CAD) ELECTRONIC-C Jacob Goel Work Phone: [facility] Work Phone: Start: 09-18-2023 End: 09-18-2023 Patient encounter procedure DRAFTER (CAD) ELECTRONIC-C Jacob Goel Work Phone: [facility] Work Phone: Start: 09-18-2023 End: 09-18-2023 ambulatory DRAFTER (CAD) ELECTRONIC-C Jacob Goel Work Phone: [facility] Work Phone: Start: 09-18-2023 Encounter for preprocedural laboratory examination Sha Keller [facility] Start: 09-04-2023 End: 09-04-[address] [facility] Start: 09-04-2023 Encounter for other preprocedural examination [facility] Start: 08-22-2023 End: 08-22-2023 Patient encounter procedure DRAFTER (CAD) ELECTRONIC-C Jacob Goel Work Phone: [facility] Work Phone: Start: 08-02-2023 End: 08-02-2023 Patient encounter procedure DRAFTER (CAD) ELECTRONIC-C Jacob Goel Work Phone: [facility] [place] Work Phone: Start: 08-02-2023 End: 08-02-2023 ambulatory DRAFTER (CAD) ELECTRONIC-C Jacob Goel Work Phone: [facility] Work Phone: Start: 08-02-2023 End: 08-02-2023 Patient encounter procedure DRAFTER (CAD) ELECTRONIC-C Jacob Goel Work Phone: [facility] Work Phone: Start: 07-11-2023 End: 07-11-2023 Patient encounter procedure DRAFTER (CAD) ELECTRONIC-Carolina Watters Goel Work Phone: [facility] Work Phone: Start: 07-04-2023 Non-patient / Non-visit DRAFTER (CAD) ELECTRONIC-Carolina Jain katherine Goel Work Phone: [facility] Work Phone: Start: 07-04-2023 End: 07-04-2023 ambulatory JACOB GOEL [facility] Start: 06-04-2023 Refill Jacob hobbs RUBBER PRINTING MACHINE OPERATOR-DIELECTRIC TESTER Work Phone: [facility] Comment on above: Essential hypertensi on Start: 05-28-2023 End: 05-28-2023 Patient encounter procedure DRAFTER (CAD) ELECTRONIC-C Jacob Goel Work Phone: [facility] Work Phone: Start: 04-30-2023 End: 04-30-2023 Patient encounter procedure PHYSICIAN NO [facility] Work Phone: Start: 04-04-2023 End: 04-04-2023 Discharged Recurring PHYSICIAN NO [facility] Work Phone: Start: 04-04-2023 (Smoking fu) Smoking cess fu [facility] Start: 04-04-2023 End: 04-04-2023 ambulatory PHYSICIAN NO [facility] Other Start: 04-04-2023 Patient encounter procedure PHYSICIAN NO [facility]- Start: 02-26-2023 (Smoking fu) Smoking cess fu [facility] Start: 02-26-2023 End: 02-26-2023 ambulatory [facility] Other [employer] Other Start: 02-26-2023 End: 02-26-2023 Patient encounter procedure PHYSICIAN NO [facility] Work Phone: Start: 02-14-2023 (Televisit) Televisit [facility] Start: 02-14-2023 End: 02-14-2023 ambulatory Keyher Donahueler Other [employer] Other Start: 02-14-2023 End: 02-14-2023 Patient encounter procedure PHYSICIAN NO [facility] Work Phone: Start: 01-26-2023 End: 01-26-2023 ambulatory Key Donahueler Other [employer] Other Start: 01-26-2023 Telephone encounter [facility] Start: 01-24-2023 (Smoking fu) Smoking cess fu [facility] Start: 01-24-2023 End: 01-24-2023 ambulatory Keyher Donahueler Other [employer] Other Start: 01-03-2023 (Televisit) Televisit [facility] Start: 01-03-2023 End: 01-03-2023 ambulatory Keyher Donahueler Other [employer] Other Start: 12-11-2022 (Smoke Cess) Smoking Cessation [facility] Start: 12-11-2022 End: 12-11-2022 ambulatory Keyher Donahueler Other [employer] Other Start: 11-10-2022 Office outpatient vi sit 25 minutes Sha Keller II [facility] Start: 11-10-2022 End: 11-10-2022 ambulatory MD Sha Keller II Work Phone: [facility] Work Phone: Start: 11-10-2022 End: 11-10-2022 Patient encounter procedure MD Sha Keller II Work Phone: [facility] Start: 11-25-2021 Encounter for genera l adult medical examination without abnormal findings JACOBALEKSEY CHAMBERSILLO [facility] Start: 11-25-2021 Encounter for gynecological examination (general) (routine) without abnormal findings JACOB CHAMBERSILLO [facility] Start: 11-23-2021 End: 11-24-2021 Encounter for general adult medical examination without abnormal findings JACOBALEKSEY GOEL Facility:[facility] Start: 11-23-2021 End: 11-24-2021 ambulatory JACOB GOEL Facility:[facility] Start: 11-10-2021 End: 11-10-[address] JAYRO JEFFERS Facility:[facility] Start: 07-14-2021 End: 07-14-2021 ambulatory Sha Keller II Other [employer] Other Start: 07-14-2021 Office outpatient ne w 45 minutes Sha Keller II [facility] Start: 12-29-2020 End: 12-30-[address] BRENDA LENNON Facility:[facility] Start: 12-09-2020 End: 12-10-[address] ALBIN BROWNING Facility:[facility] Start: 12-10-2018 Patient encounter procedure Jacob Goel RUBBER PRINTING MACHINE OPERATOR-DIELECTRIC TESTER Work Phone: [facility] Start: 12-10-2018 Encounter for genera l adult medical examination without abnormal findings JACOB J [facility] Start: 06-17-2018 Physical examination Jacob guido RUBBER PRINTING MACHINE OPERATOR-DIELECTRIC TESTER Work Phone: [facility] Start: 06-17-2018 Encounter for genera l adult medical examination without abnormal findings [facility] Procedures Date Procedure Procedure Detail Performing Clinician Start: 12-27-2023 Plain X-ray of left hip DRAFTER (CAD) ELECTRONIC-C Jacob Goel Work Phone: Start: 11-26-2023 Mammography Jacob Ca stillo RUBBER PRINTING MACHINE OPERATOR-DIELECTRIC TESTER Work Phone: Start: 11-15-2023 Plain X-ray of left hip DRAFTER (CAD) ELECTRONIC-C Jacob Goel Work Phone: Start: 10-02-2023 End: 10-02-2023 Plain X-ray of left hip DRAFTER (CAD) ELECTRONIC-C Jacob wise Work Phone: Start: 10-02-2023 Total replacement of left hip joint DRAFTER (CAD) ELECTRONIC-C Jacob Goel Work Phone: Start: 09-18-2023 Antibody screen Sha Keller II Comment on above: Order Comment: Date of Surgery: [id number] Result Comment: PERF ORMED BY: [address] [place] [address] PATHOLOGIST LABORATORY INSPECTOR LOUIS MOREAU M.D. Start: 09-18-2023 Urine culture DRAFTER (CAD) ELECTRONIC-C Rosario Goel Work Phone: Start: 09-04-2023 Adult depression scr eening assessment Jacob Goel RUBBER PRINTING MACHINE OPERATOR-DIELECTRIC TESTER Work Phone: Start: 08-02-2023 Methicillin resistan t Staphylococcus aureus culture DRAFTER (CAD) ELECTRONIC-C Jacob Goel Work Phone: Start: 12-27-2022 Adult depression scr eening assessment Jacob Goel RUBBER PRINTING MACHINE OPERATOR-DIELECTRIC TESTER Work Phone: Start: 12-12-2022 Mammography Jacob parrao RUBBER PRINTING MACHINE OPERATOR-DIELECTRIC TESTER Work Phone: Start: 11-10-2022 Plain X-ray of left hip MD Sha Keller II Work Phone: Start: 11-08-2020 Microscopic observat ion [Identifier] in Cervix by Cyto stain Jacob Goel RUBBER PRINTING MACHINE OPERATOR-DIELECTRIC TESTER Work Phone: Start: 11-26-2019 Colonoscopy Jacob parrao RUBBER PRINTING MACHINE OPERATOR-DIELECTRIC TESTER Work Phone: Plan of Treatment Date Care Activity Detail Author Start: 11-25-2029 Screening for malign ant neoplasm of colon Colonoscopy [facility] Start: 01-08-2025 Adult BMI Screening Adult BMI Screen ing [facility] Start: 01-08-2025 Tobacco Screening Tobacco Screening [facility] Start: 11-25-2024 Screening for malign ant neoplasm of breast Mammogram [facility] Start: 09-03-2024 Adult BMI Follow Up Plan Adult BMI Follow Up Plan [facility] Start: 09-03-2024 Depression Screening Depression Scre ening [facility] Start: 03-19-2024 End: 03-19-2024 Patient encounter procedure 03/19/2024 4:00 PM EST Office Visit [facility] Internal Medicine - Family Medicine [address] [place] [id number] Jacob Goel, RUBBER PRINTING MACHINE OPERATOR-DIELECTRIC TESTER [address] [place] [address] [facility] Start: 01-14-2024 End: 01-14-2024 Patient encounter procedure 01/14/2024 11:20 AM EST Office Visit [facility] [address] [place] [phone] Jayro Jeffers DO [address] [place] [address] Arrived [facility] Comment on above: Arrived Start: 12-28-2023 Adult BMI Follow Up Plan Adult BMI Follow Up Plan [facility] Start: 12-28-2023 Adult BMI Screening Adult BMI Screen ing [facility] Start: 12-28-2023 Depression Screening Depression Scre ening [facility] Start: 12-28-2023 Tobacco Screening Tobacco Screening [facility] Start: 12-13-2023 Screening for malign ant neoplasm of breast Mammogram [facility] Start: 11-11-2023 Influenza vaccination Influenza Vacc ine [facility] Start: 11-09-2023 Screening for malign ant neoplasm of cervix Pap Smear [facility] Start: 10-03-2023 [facility] Start: 10-02-2023 Hospital admission [facility] Start: 10-02-2023 Referral to clinical certified pesticide applicator [facility] Start: 09-18-2023 [facility] Start: 09-18-2023 Bacteria identified in Urine by Culture [facility] Start: 08-02-2023 Methicillin resistan t Staphylococcus aureus [Presence] in Unspecified specimen by Organism specific culture [facility] Start: 08-02-2023 [facility] Start: 08-02-2023 MRSA Culture MRSA Culture [facility] Start: 07-04-2023 End: 07-04-2023 Patient encounter procedure 07/04/2023 4:40 PM EDT [facility] [address] [place] [address] Jacob Goel, RUBBER PRINTING MACHINE OPERATOR-DIELECTRIC TESTER [address] [place] [phone] [facility] Start: 11-10-2022 Influenza vaccination Influenza Vacc ine [facility] Start: 2016 Administration of varicella zoster vaccine Zoster (Shingles) Vaccine (1 of 2) [facility] Start: 1985 DTaP,Tdap and Td Vaccines (1 - Tdap) DTaP,Tdap and Td Vaccines (1 - Tdap) [facility] Start: 1966 Tobacco Counseling Tobacco Counselin g [facility] End: 01-08-2025 CBC W Auto Differential panel - Blood CBC auto differential Lab Routine Blood tests for routine general physical examination 1 Occurrences starting 01/09/2024 until 01/08/2025 [facility] Comment on above: 1 Occurrences starti ng 01/09/2024 until 01/08/2025 End: 01-08-2025 Comprehensive metabolic 2000 panel - Serum or Plasma Comprehensive metabolic panel Lab Routine Blood tests for routine general physical examination 1 Occurrences starting 01/09/2024 until 01/08/2025 [facility] Work Phone: Comment on above: 1 Occurrences starti ng 01/09/2024 until 01/08/2025 Cotinine [Mass/volum e] in Serum or Plasma [facility] End: 01-08-2025 Hemoglobin A1c/Hemoglobin.total in Blood Hemoglobin A1c Lab Routine Blood tests for routine general physical examination 1 Occurrences starting 01/09/2024 until 01/08/2025 [facility] Comment on above: 1 Occurrences starti ng 01/09/2024 until 01/08/2025 End: 01-08-2025 Lipid 1996 panel - Serum or Plasma Lipid profile Lab Routine Blood tests for routine general physical examination 1 Occurrences starting 01/09/2024 until 01/08/2025 [facility] Comment on above: 1 Occurrences starti ng 01/09/2024 until 01/08/2025 Nicotine [Mass/volum e] in Serum or Plasma [facility] Patient Education [address] Therapy Know your Meds [facility] Work Phone: Patient referral [facility] Work Phone: Payers Date Payer Category Payer Self-pay [id number] 2021 Private Health Insurance [employer] [id number] 2015 Commercial Managed C are - PPO [employer] [id number] 2015 Unknown [employer] Colleen DOLAN [id number] 2015-Present [phone] [address] [place] [address] [id number] 1966 Unknown [id number] 2.16.840.1.260722.3.579.2. 593 1966 Unknown [id number] 2.16.840.1.237019.3.579.2. 593 1966 Unknown [id number] 2.16.840.1.713299.3.579.2. 593 1966 Unknown [id number] 2.16.840.1.910876.3.579.2. 593 1966 Unknown [id number] 2.16.840.1.391956.3.579.2. 593 1966 Unknown [id number] 2.16.840.1.461456.3.579.2. 1286 1966 Unknown [id number] 2.16.840.1.397749.3.579.2. 1286 1966 Unknown [id number] 2.16.840.1.728082.3.579.2. 1286 1966 Unknown [id number] 2.16.840.1.419441.3.579.2. 1286 1959 Unknown [id number] 2.16.840.1.691856.19 Unknown [id number] 2.16.840.1.766911.3.579.2. 531 Unknown [id number] 2.16.840.1.599138.3.579.2. 531 Unknown [id number] 2.16.840.1.598520.3.579.2. 531 Unknown [id number] 2.840.1.219629.3.579.2. 531 Unknown [id number] 2.840.1.622145.3.579.2. 531 Unknown [id number] 2.16840.1.835878.3.579.2. 531 Unknown [id number] 2.0.1.781852.3.579.2. 531 Social History Date Type Detail Facility Start: 11-14-2022 End: 12-27-2022 Sex Assigned At [facility] Start: 1965 Sex Assigned At Female F [facility] Start: 04-30-2023 End: 07-04-2023 Tobacco smoking status NHIS Ex-smoker (finding) [facility] Start: 06-21-2022 End: 11-03-2022 Tobacco smoking status [facility] Smokes tobacco daily [facility] History of tobacco use Cigarette Smoker [facility] Start: 06-21-2022 End: 11-14-2022 Cigarettes smoked current (pack per day) - Reported 0.6 [facility] Start: 06-21-2022 End: 07-04-2023 Tobacco use and exposure Smokeless tobacco non-user [facility] Start: 11-14-2022 End: 12-27-2022 Alcohol intake Current drinker of alcohol (finding) [facility] Adolescent depressio n screening assessment 0 [facility] Start: 07-04-2017 Alcohol Comment RARELY [facility] Start: 1965 Sex Assigned At Not on file P [facility] History of tobacco use Current smoker [facility] Start: 10-15-2014 Sex Female (finding) [facility] Start: 11-03-2022 Alcohol Comment Monthly or less [facility] Start: 11-13-2022 Gender identity Identifies as female gender (finding) [facility] NEGATED: Highlighted row [facility] Medical Equipment Procedure Code Equipment Code Equipment Origin al Text Equipment Identifier Dates Arthroplasty, hip, total, anterior approach Acetabular shell [id number] FDA Start: 10-02-2023 Arthroplasty, hip, total, anterior approach Ceramic femoral head prosthesis ()[id number] FDA Start: 10-02-2023 Arthroplasty, hip, total, anterior approach Coated hip femur prosthesis, modular [id number] FDA Start: 10-02-2023 Arthroplasty, hip, total, anterior approach Non-constrained polyethylene acetabular liner ()[id number] FDA Start: 10-02-2023 Goals Date Patient Goal Desired Activity /State Functional Status Date Assessment Result Facility 10-03-2023 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 [address] [place] [address] SUBJECTIVE: Patient ID: Selam Alvarez is a 58 y.o. female. Chief Complaint Patient presents with Annual Exam Presents for annual physical Would like wellness labs drawn in office today Works full-time at local [employer] Quit smoking 4 months ago. Is doing well. Annual Exam Pertinent negatives include no chest pain, chills or fever. The following portions of the patient's history were reviewed and updated as appropriate: allergies, current medications, past family history, past medical history, past social history, past surgical history and problem list. Past Surgical History: Procedure Laterality Date HIP SURGERY Left hip replacement HYSTEROSCOPY 12/2017 Past Medical History: Diagnosis Date Allergic SEASONAL Hypertension There is no immunization history on file for this patient. REVIEW OF SYSTEMS: Review of Systems Constitutional: Negative for chills and fever. HENT: Negative. Eyes: Negative for visual disturbance. Respiratory: Negative for chest tightness and shortness of breath. Cardiovascular: Negative for chest pain and palpitations. Gastrointestinal: Negative. Endocrine: Negative. Genitourinary: Negative for menstrual problem and pelvic pain. Musculoskeletal: Negative. Skin: Negative. Allergic/Immunologic: Negative. Neurological: Negative for syncope and facial asymmetry. Hematological: Does not bruise/bleed easily. Psychiatric/Behavioral: Negative. PHYSICAL EXAMINATION: Vitals: 01/09/24 1604 BP: 100/70 BP Site: Left Arm BP Postition: Sitting Pulse: 86 Resp: 18 Temp: 36.8 C (98.2 F) TempSrc: Oral SpO2: 96% Weight: 107.7 kg (237 lb 6.4 oz) Height: 157.5 cm (5' 2 ) Patient noted to have elevated BMI and the following intervention(s) were applied: encouragement to exercise. Physical Exam Vitals and nursing note reviewed. Constitutional: General: She is not in acute distress. Appearance: She is well-developed. She is not diaphoretic. HENT: Head: Normocephalic and atraumatic. Right Ear: Tympanic membrane and external ear normal. Left Ear: Tympanic membrane and external ear normal. Nose: Nose normal. Mouth/Throat: Mouth: Mucous membranes are moist. Pharynx: No oropharyngeal exudate. Eyes: General: Right eye: No discharge. Left eye: No discharge. Conjunctiva/sclera: Conjunctivae normal. Pupils: Pupils are equal, round, and reactive to light. Neck: Thyroid: No thyromegaly. Vascular: No JVD. Cardiovascular: Rate and Rhythm: Normal rate and regular rhythm. Heart sounds: Normal heart sounds. No murmur heard. No friction rub. No gallop. Pulmonary: Effort: Pulmonary effort is normal. Breath sounds: Normal breath sounds. Abdominal: General: Bowel sounds are normal. There is no distension. Palpations: Abdomen is soft. There is no mass. Tenderness: There is no abdominal tenderness. Musculoskeletal: General: Normal range of motion. Cervical back: Normal range of motion and neck supple. Lymphadenopathy: Cervical: No cervical adenopathy. Skin: General: Skin is warm and dry. Capillary Refill: Capillary refill takes less than 2 seconds. Neurological: Mental Status: She is alert and oriented to person, place, and time. Deep Tendon Reflexes: Reflexes are normal and symmetric. Psychiatric: Mood and Affect: Mood normal. Behavior: Behavior normal. Thought Content: Thought content normal. Judgment: Judgment normal. ASSESSMENT/PLAN: Selam was seen today for annual exam. Diagnoses and all orders for this visit: Annual physical exam Blood tests for routine general physical examination - Comprehensive metabolic panel; Future - CBC auto differential; Future - Lipid profile; Future - Hemoglobin A1c; Future Body mass index is 43.42 kg/m . Patient noted to have elevated BMI and the following intervention(s) were applied: Discussed current weight today. Consider healthy food choices, portion control. Avoid sugary beverages and high concentrated sweets. Routine exercise regimen encouraged. Colonoscopy screening discussed today. Risk and benefits of procedure explained. Patient completed 2019. PUBLICITY DIRECTOR provider is Dr. Jeffers, who orders DEXA and yearly mammogram. She is up-to-date. Education regarding vaccinations; influenza, COVID-10 booster and shingles. She declines. If wishes to pursue, I encourage her to obtain from local pharmacies. Yearly labs drawn in office today ALL QUESTIONS ANSWERED Total time spent was 30 minutes: Preparing to see the patient (e.g., review of tests) Obtaining and/or reviewing separately obtained history Performing a medically appropriate examination and/or evaluation Counseling and educating the patient/family/caregiver Ordering medications, tests, or procedures Follow-up: March MANNY Shipley 01/09/241658 documented in this encounter [facility] 10-03-2023 Progress note Note Date/Time October 03, 2023 7:00 am [facility] [address] [place] [address] Orthopedic Progress Note Signed Patient: Selam Alvarez MR#: [id number] : 1965 Acct:[id number] Age/Sex: 58 / F Adm Date: 4 Loc: 4N Room: 3V1511-2 Type: REG DEC Attending Dr: Sha Keller II, MD Copies to: ~ Date of Service: 10/03/2023 Subjective Subjective Interval History: Patient resting comfortably in bed this morning. She reports that she got up tothe bathroom and chair overall feels well. Nursing reports no acute events overnight. Denies chest pain, shortness of breath, or calf pain. Exam Physical Exam Vital Signs: Temp Pulse Resp BP Pulse Ox O2 Del Method O2 Flow Rate 98.4 F 79 18 109/75 96 Room Air 10 10/03/23 03:51 10/03/23 03:51 10/02/23 18:55 10/03/23 03:51 10/03/23 03:51 10/03/23 03:51 10/02/23 18:10 Narrative: Left hip Prevena dressing is on and working. No drainage in the container. Foot is warm and well-perfused. Sensation intact to light touch throughout the foot. Wiggles their toes and moves their ankle up and down. Nontender to palpation in the calf. Objective Labs Labs: Laboratory Results - last 24 hr 10/02/23 10/03/23 12:05 05:28 Corrected WBC 11.8 H Uncorrected WBC Count 11.8 H RBC 4.31 Hgb 11.9 Hct 35.9 MCV 83.3 MCH 27.7 MCHC 33.2 RDW 13.7 Plt Count 342 MPV 8.3 Neut % (Auto) 70.6 Lymph % (Auto) 16.7 Oliver % (Auto) 10.5 Eos % (Auto) 1.8 Baso % (Auto) 0.4 Nucleat RBC Rel Count 0.1 Neut # (Auto) 8.4 H Lymph # (Auto) 2.0 Oliver # (Auto) 1.2 H Eos # (Auto) 0.2 Baso # (Auto) 0.1 PHA Creatinine Clear 108.97 Sodium 137 Potassium 4.1 Chloride 106 Carbon Dioxide 25.9 Anion Gap 9.2 BUN 11 Creatinine 0.63 Est GFR (CKD-EPI) > 60.0 Glucose 124 H Calcium 8.3 L Blood Type Recheck O Positive AJRR INPATIENT [facility] Ambulation: 1 Yes, Ambulation Day of Surgery or 4 hours from PACU discharge TJC Discharge Exclusion: 3 Unknown Assessment / Plan Assessment and plan (1) S/P total left hip arthroplasty: Code(s): Z96.642 - Presence of left artificial hip joint Plan POD 1 sp L KEVIN 1. Pain control 2. DVT prophylaxis: JANELLE Hose bilaterally, SCDs bilaterally, and Xarelto 10 mg daily x 35 days postop 3. Perioperative antibiotics with IV Ancef and then 7 days of Duricef 4. PT/OT: WBAT left lower extremity 5. Appreciate hospitalist assistance with medical management 6. PACU x-rays look good 7. Hemoglobin 11.9 this morning. Continue iron and vitamin C 8. Today's Plan: Work with PT/OT 9. Disposition: pending PT/OT eval, but will likely be a great candidate to go home with home health physical therapy later today Documented By: Sha Keller MD 10/03/23 06 58 Signed By: <Electronically signed by Sha Keller MD> 10/03/23 0700 [facility] Work Phone: 1(162) 690-840107-23-2024 Consult note Author Maycol Fermin [facility] October 02, 2023 8:07pm Note Date/Time October 02, 2023 7:45 pm [facility] [address] [place] [address] Hospitalist Consult Note Signed Patient: Selam Alvarez MR#: [id number] : 1965 Acct:[id number] Age/Sex: 58 / F Adm Date: 4 Loc: Room: [address] [place] [address] Type: [facility] Attending Dr: Sha Keller II, MD Copies to: MD Sha Duffy MD Valerie J Castillo NP-C~ HPI DATE OF CONSULTATION: 10/02/23 REQUESTING PROVIDER: Sha Keller II Consult Narrative Reason for Consult: Medical management for hypertension post left hip arthroplasty HPI: 58-year-old white female with past medical history of obesity, hypertension, hyperlipidemia, GERD, arthritis who underwent left hip arthroplasty today. Beenasked to see the patient to help with medical management for hypertension and hyperlipidemia post surgery. She is doing well. She denies any pain. No chestpain or shortness of breath. No orthopnea or PND. She does not cough. No fever or chills. No abdominal pain. No nausea or vomiting. No dysuria, hematuria, or frequency. Review of Systems Review of Systems All other systems reviewed & are negative unless noted below or in [facility] Medical History Former smoker Generalized headaches Left hip pain Arthritis Heartburn Pre-diabetes Hyperlipidemia Daytime sleepiness Inflammation of right sacroiliac joint Essential (primary) hypertension Arthropathy of left hip Status post hysteroscopy BMI 36.0-36.9,adult Surgical History (Updated 10/02/23 @ 19:42 by Maycol Fermin MD) History of colonoscopy S/P wisdom tooth extraction Family History Brother Diabetes Legacy FamHx Relation: Brother(s) Father Heart disease Hypertension Myocardial infarction Mother Diabetes Social History Smoking Status: Former smoker Tobacco Type: cigarettes Substance Use Type: None Meds Medications and Allergies Allergies bupropion Allergy (Mild, Verified 10/02/23 11:48) Headache bacitracin [Neosporin ([id number])] Allergy (Unknown, Verified 10/02/23 11:48) Redness of Skin naproxen Allergy (Unknown, Verified 10/02/23 11:48) Swelling of Lip/Tongue/Throat neomycin [Neosporin ([id number])] Allergy (Unknown, Verified 10/02/23 11:48) Redness of Skin polymyxin B [Neosporin (iwy-eqk-mlbiy)] Allergy (Unknown, Verified 10/02/23 11:48) Redness of Skin shrimp Allergy (Unknown, Verified 10/02/23 11:48) Rash sulfacetamide [Sulfacet-R] Allergy (Unknown, Verified 10/02/23 11:48) Rash sulfur [Sulfacet-R] Allergy (Unknown, Verified 09/18/23 14:00) Rash Home Medications calcium carbonate 600 mg-vitamin D3 10 mcg (400 unit) capsule 2 cap PO DAILY 04/30/23 [History Confirmed 10/02/23] cholecalciferol (vitamin D3) 250 mcg (10,000 unit) capsule 250 mcg PO DAILY 04/30/23 [History Confirmed 10/02/23] ibuprofen 200 mg capsule 400 mg PO QHS PRN fever or pain 04/30/23 [History Confirmed 10/02/23] lisinopril 30 mg tablet 30 mg PO QAM 04/30/23 [History Confirmed 10/02/23] magnesium hydroxide 600 mg chewable tablet (Dulcolax (magnesium hydroxide)) 600 mg PO DAILY PRN constipation 04/30/23 [History Confirmed 10/02/23] rosuvastatin 20 mg tablet 20 mg PO QAM 04/30/23 [History Confirmed 09/19/23] turmeric 400 mg capsule 400 mg PO DAILY 04/30/23 [History Confirmed 10/02/23] Eye Restore 1 tab PO DAILY 07/11/23 [History Confirmed 10/02/23] amlodipine 5 mg tablet 5 mg PO QHS 07/11/23 [History Confirmed 10/02/23] magnesium 2 cap PO DAILY 07/11/23 [History Confirmed 10/02/23] cinnamon bark 500 mg capsule 1,000 mg PO DAILY 08/22/23 [History Confirmed 10/02/23] phentermine 37.5 mg tablet 37.5 mg PO QAM 30 days #30 tabs 08/22/23 [Rx Confirmed 10/02/23] zypan 2 cap PO DAILY dietary suppliment 09/18/23 [History Confirmed 10/02/23] acetaminophen 500 mg tablet 1,000 mg (2 x 500 mg) PO Q8H 30 days #180 tabs 09/19/23 [Rx Confirmed 09/19/23] cefadroxil 500 mg capsule 500 mg PO Q12H 7 days #14 tabs 09/19/23 [Rx Confirmed 09/19/23] ondansetron HCl 4 mg tablet 4 mg PO Q8H PRN Nausea #9 tabs 09/19/23 [Rx Confirmed 09/19/23] oxycodone 5 mg tablet 5 mg PO Q4H PRN Pain 7 days #42 tabs 09/19/23 [Rx Confirmed 09/19/23] polyethylene glycol 3350 17 gram/dose oral powder (Miralax) 17 g PO daily 7 days#7 packets 09/19/23 [Rx Confirmed 09/19/23] prednisone 10 mg tablet 10 mg PO daily 10 days #10 tabs 09/19/23 [Rx Confirmed 09/19/23] rivaroxaban 10 mg tablet 10 mg PO daily 35 days #35 tabs 09/19/23 [Rx Confirmed 09/19/23] sennosides 8.6 mg-docusate sodium 50 mg tablet (Senokot-S) 2 tab PO daily 30 days #60 tabs 09/19/23 [Rx Confirmed 09/19/23] tramadol 50 mg tablet 50 mg PO Q6H PRN Pain 10 days #40 tabs 09/19/23 [Rx Confirmed 09/19/23] Active Medications: Active Medications Generic Name Dose Route Start Last Admin Trade Name Ediq PRN Reason Stop Dose Admin Acetaminophen 1,000 mg 10/02/23 20:00 Acetaminophen 500 Mg Tablet PO 10/01/24 19:59 Q8H MACK Ascorbic Acid 500 mg 10/03/23 08:00 Ascorbic Acid 500 Mg Tablet PO 10/02/24 07:59 BID.WITH.MEALS MACK Cefadroxil 500 mg 10/02/23 21:00 Cefadroxil 500 Mg Capsule PO 10/09/23 09:01 BID MACK Diphenhydramine HCl 25 mg 10/02/23 17:54 Diphenhydramine 25 Mg Capsule PO 10/01/24 17:53 Q6H PRN Itching Ferrous Sulfate 324 mg 10/03/23 08:00 Ferrous Sulfate 324 Mg Tablet. PO 10/02/24 07:59 BID.WITH.MEALS MACK Lactated Ringer's 1,000 mls @ 20 mls/hr 10/02/23 11:09 10/02/23 18:20 Lactated Ringers IV 10/03/23 11:08 20 mls/hr .Q24H ONE Infusion Lactated Ringer's 1,000 mls @ 75 mls/hr 10/02/23 18:00 10/02/23 18:56 Lactated Ringers IV 10/01/24 17:59 75 mls/hr .[id number] MACK Administration Cefazolin Sodium 2 gm in 50 mls @ 100 mls/hr 10/03/23 02:00 Ancef IV 10/03/23 10:29 Q8H MACK Lidocaine HCl 0.1 ml 10/02/23 11:09 Lidocaine 1% 50 Ml Vial INTRADERMA PREOP PRN Venipuncture x 1 Dose Mineral Oil 1 each 10/05/23 17:54 Mineral Oil (Teller) 1 Each Enema SC ONCE PRN Constipation Morphine Sulfate 15 mg 10/02/23 17:54 Morphine Sulfate 12hr Er 15 Mg Tablet.Er PO Q12H PRN Pain Naloxone HCl 0.4 mg 10/02/23 17:54 Naloxone Hcl 0.4 Mg/Ml Vial IV-PUSH 10/01/24 17:53 Q2M PRN Opioid Reversal Ondansetron HCl 8 mg 10/02/23 17:54 10/02/23 19:24 Ondansetron Odt 4 Mg Tab.Rapdis PO 10/01/24 17:53 8 mg TID PRN Administration Nausea Oxycodone HCl 5 mg 10/02/23 17:54 Oxycodone Ir 5 Mg Tablet PO Q4HR PRN Pain Scale 6 - 10 Polyethylene Glycol 17 gm 10/03/23 09:00 Polyethylene Glycol 3350 17 Gm Powd.Pack PO 10/10/23 08:59 DAILY MACK Prednisone 10 mg 10/04/23 09:00 Prednisone 10 Mg Tablet PO 11/02/23 09:01 DAILY MACK Prochlorperazine Maleate 10 mg 10/02/23 17:54 Prochlorperazine Maleate 5 Mg Tablet PO 10/01/24 17:53 Q6H PRN Nausea Rivaroxaban 10 mg 10/03/23 09:00 Rivaroxaban 10 Mg Tablet PO 11/06/23 09:01 DAILY MACK Senna/Docusate Sodium 2 tab 10/03/23 09:00 Sennosides/Docusate 8.6-50mg 1 Tab Tablet PO 11/02/23 08:59 DAILY MACK Sodium Chloride 0 ml 10/02/23 12:00 Sodium Chloride 0.9 % 10 Ml Syringe IV-PUSH 10/01/24 11:59 PRN PRN Flush Sodium Chloride 0 ml 10/02/23 11:09 Sodium Chloride 0.9 % 10 Ml Syringe IV-PUSH 10/01/24 11:08 PRN PRN Flush Sodium Chloride 0 ml 10/02/23 22:00 Sodium Chloride 0.9 % 10 Ml Syringe IV-PUSH 10/01/24 21:59 QSHIFT MACK Temazepam 7.5 mg 10/02/23 17:54 Temazepam 7.5 Mg Capsule PO 03/30/24 17:53 QHS PRN Insomnia Tramadol HCl 50 mg 10/02/23 17:54 10/02/23 19:24 Tramadol 50 Mg Tablet PO 03/30/24 17:53 50 mg Q6H PRN Administration Pain Scale 1 - 5 Exam Physical Exam Vital Signs: Temp Pulse Resp BP Pulse Ox O2 Del Method O2 Flow Rate 98 F 61 18 136/84 97 Room Air 10 10/02/23 18:55 07/23/24 18:55 10/02/23 18:55 10/02/23 18:55 10/02/23 18:55 10/02/23 18:55 10/02/23 18:10 Narrative: General patient laying in bed in no acute distress alert awake oriented x3 HEENT PERRLA Neck supple no JVD no carotid bruit CVS S1-S2 regular rate and rhythm no murmur no gallop Chest clear to auscultation percussion Abdomen soft bowel sounds normoactive no rebound no guarding Extremities no stenosis no clubbing no edema Musculoskeletal exam normal no joint effusion Neurologic exam oriented x3 alert awake no focal left Psychiatry: Normal insight and judgment Skin: no rash or lesions Results - Hospitalist Consult Lab Results Labs: Laboratory Results - last 72 hr 10/02/23 12:05: Blood Type Recheck O Positive 09/18/23 14:10: Blood Type O Positive, Antibody Screen Negative Assessment & Plan Assessment/Plan (1) Obesity, Class II, BMI 35-39.9: (2) Hypertension: (3) Hyperlipidemia: (4) Depression: (5) Arthropathy of left hip: (6) S/P total left hip arthroplasty: Plan S/p left hip arthroplasty Management per Ortho PT OT eval Social service, Hypertension: Resume Norvasc and less than Hyperlipidemia: Resume Lipitor Morbid obesity: Lifestyle DVT prophylaxis per orthopedic Documented By: Maycol Fermin MD 10/02/231937 Signed By: <Electronically signed by Maycol Fermin MD> 10/02/232006 [facility] Work Phone: 1([phone]) 422-353801-24-2024 Evaluation note* Encounter Date Diagnosis Assessment Notes Treatment Notes Treatment Clinical Notes Mar, Nicotine dependence (ICD-10 - F17.200) Patient has done very well with her last cigarette being 03/15/2023. She has responded positively to Chantix 2 tabs twice daily for about 3 months. She went against previous guidance on her last follow-up and stopped the Chantix altogether about 10 days ago. She has noticed an uptick in cravings she is still experiencing headaches but nightmares have improved. We discussed CT scan low-dose for lung cancer screening which she is a candidate for. We talked through her concerns of insurance and assured her that to the best of my knowledge they do a thorough screening process to make sure that they do not get charged for the screening itself. We decided to defer this for now until she looks into insurance changes in the near future due to concern of pre-existing conditions. Informed her that if she changes her mind she can come in at any time within the next 6 months or so and I would be happy to facilitate this test I did offer her switching to medication such as bupropion which can help with mood stabilization and irritability she is experiencing, help promote abstinence from cigarettes and may have some weight negative benefits which she is also interested in. She will think about this and would be open to calling this in for patient if she decides to go ahead with this in the next couple of weeks. She is very thankful for the support of the provider and thankful she came in for her initial visit with us. She is very pleased with her success so far and being free of cigarettes for the last several weeks. Reinforced chronicity of addiction and how this is going to be a lifelong effort she is still in an unstable environment and high risk for relapse. Educated that I am here to support her and give her the tools to set her up for the best success. Mar, Cigarette nicotine dependence (ICD-10 - F17.210) Mar, Cardiovascular risk factor (ICD-10 - Z91.89) Mar, Encounter for weight management (ICD-10 - Z76.89) [facility] Other 12-18-2023 Evaluation note* Encounter Date Diagnosis Assessment Notes Treatment Notes Treatment Clinical Notes Feb, Nicotine dependence (ICD-10 - F17.200) Patient continues to do very well currently on Chantix 1 tab twice daily since 12/14/2022. Long discussion had regarding treatment plan moving forward as it is often indicated only for about a 12-week plan which she is approaching quickly. Although she does desire to be off this medication as soon as possible she does recognize how it is helped her in significantly decreasing her cigarette use after smoking for 39 years at 1 pack/day. Praised her in her efforts and success so far. We did discuss how we can extend the varenicline treatment additional 12 weeks if it is not successful and after discussing and reinforcing how it is working we decided to finish out current third month at 2 tabs daily and then for 1 additional month we will do 1 tab daily and assess patient's clinical response. Reinforced that she will need to continue to work on stress management and feeling her time, strongly suggested getting into a walking routine which will not only keep her busy but help improve cardiopulmonary function. We did also discuss the low-dose CT screening program in office today, paperwork was given and patient will think about it for discussion at follow-up. Finish current Chantix third month at 2 tabs daily. Refill sent for 1 mg tablet once daily to see if we cannot get further support and decreased side effects with nightmares. We did again revisit risk and benefit. She denies any mood disturbance or other severe side effects that we would need to stop this medication at this time. Reinforced that this is not a long-term medication but can consider additional 12 weeks as needed. She will think about the low-dose CT program that was discussed in detail today Advised to listen to her body and if she experiences increased withdrawal symptoms of irritability, increased cravings, insomnia or increased headaches she may need nicotine replacement support advised to lose the 7 mg patch if needed since she has it at her disposal. Advised on how to use. Her next goal is to eliminate cigarettes altogether within the next 2 weeks at the beginning of the year Feb, Cigarette nicotine dependence (ICD-10 - F17.210) Feb, Cardiovascular risk factor (ICD-10 - Z91.89) Feb, Encounter for weight management (ICD-10 - Z76.89) [facility] Other 12-06-2023 Evaluation note* Encounter Date Diagnosis Assessment Notes Treatment Notes Treatment Clinical Notes Feb, Nicotine dependence (ICD-10 - F17.200) Patient continues to make positive progress down to 2 cigarettes/day from her 15/day when she initially started 2 months ago. She is starting her third month of Chantix and is tolerating responding very positively with a significant decrease in cravings for cigarettes. She continues to follow her initial plan with decreasing her overall use of cigarettes by 50% each week with a goal of becoming completely abstinent. She still has the nicotine patch at her disposal but has not felt the need that she has needed it. She did not care for the taste of the lozenges which can be an additional layer of support but if she truly does not need the additional nicotine it is okay to omit this. Encouraged to increase distraction as well as better stress relief outlets as this continues to be her main trigger. Okay for other suckers, candy, mints or gum that can also take the replacement of a cigarette as well. Continue Chantix for at least 1 more month to equal 3 months total. Could consider treatment extension as appropriate Encouraged incorporating nicotine patches or lozenges if she notices withdrawal symptoms list of which was reviewed. Praised her for continuing the changing of her routine so as not to be doing the same thing in the same order every day and get into a better habit away from cigarettes surrounding. We will monitor fatigue sounds as though patient's fatigue has not changed significantly during this smoking cessation attempt. Feb, Cigarette nicotine dependence (ICD-10 - F17.210) Feb, Cardiovascular risk factor (ICD-10 - Z91.89) She has a strong cardiovascular risk factor which we are trying to юлия by smoking cessation. Feb, Encounter for weight management (ICD-10 - Z76.89) [facility] Other 11-15-2023 Evaluation note* Encounter Date Diagnosis Assessment Notes Treatment Notes Treatment Clinical Notes Jan, Nicotine dependence (ICD-10 - F17.200) She has made some positive progress down from about 15 cigarettes/day down to 6/day using Chantix and delaying and distracting. She does not have any nicotine support at this time as we had discussed at her previous visit. Her main concern is having too much nicotine on board and not doing well. She is open to trying the 7 mg as suggested by the [place] quit line. While this is not something routinely done I do not see any reason why we would not be advisable. I did encourage some type of nicotine replacement therapy to further help her decrease in cravings and any withdrawal symptoms to further improve her success rate. As far as the Chantix she does experience some fatigue. Advised that she is open to playing with the timing of the Chantix and or trying just 1 early in the morning or afternoon see if we cannot still get benefit without the daily fatigue. Continue Chantix 1-2 tabs daily Strongly encouraged adding nicotine replacement either in the form of gum lozenges or the 7 to 14 mg patch. Strongly advised that she should continue to work on decreasing at least 50% over 1 to 2 weeks to make forward progress with our goal of completely being free of nicotine Jan, Cigarette nicotine dependence (ICD-10 - F17.210) Jan, Cardiovascular risk factor (ICD-10 - Z91.89) [facility] Other 10-25-2023 Evaluation note* Encounter Date Diagnosis Assessment Notes Treatment Notes Treatment Clinical Notes Dec, Nicotine dependence (ICD-10 - F17.200) Patient has made good progress and has decreased her cigarette usage by 50% over the last couple of weeks using Chantix. She seems to be tolerating the Chantix without significant adverse effect. She is working on keeping herself busy and avoiding boredom as a trigger as well as meals. She continues to seem motivated in her smoking cessation approaches. Continue Chantix twice daily Initiate nicotine patch on in the morning off the next morning and rotate site. Other specific instructions were reviewed with patient. While 21 mg patches would probably be most therapeutic with her history of cigarette usage okay to use 14 mg and assess effectiveness. This may need to be titrated. Encouraged lozenges or gum as well which may also help to replace his cigarette and craving. Continue to distract and delay. Encouraged to use a clear jaw and insert money she would normally buy the cigarettes with into the jar as a visual aid to reinforce smoking cessation Dec, Cigarette nicotine dependence (ICD-10 - F17.210) Dec, Cardiovascular risk factor (ICD-10 - Z91.89) Reinforced the health benefits and addition to surgical optimization to keep it at the forefront of her mind as she approaches a smoking cessation. With her high cholesterol and hypertension she has elevated risk of cardiovascular events [facility] Other 10-02-2023 Evaluation note* Encounter Date Diagnosis Assessment Notes Treatment Notes Treatment Clinical Notes Dec, Cigarette nicotine dependence (ICD-10 - F17.210) Dec, Cardiovascular risk factor (ICD-10 - Z91.89) We did briefly discuss her family history of hypertension as well as coronary artery disease. She has some small vessel disease in her legs that is evident by readiness of her shins bilaterally. Briefly brought this to her attention as decreased circulation can be a direct cause from smoking itself. We also discussed her hypertension and how she is on a dual medication to keep this at bay. Discussed the stiffening of the arteries and atherosclerosis that happens with smoking in addition to any genetic factors working against her. Dec, Other Discussed the physical, mental, and social aspects of nicotine addiction. Discussed the health risks of smoking as well as the short-term and long-term benefits of cessation. Patient is aware that success is dependent upon motivation and effort put forth in making lifestyle changes in addition to counseling and NRT/pharmaceutical intervention. Encouraged to inform family and friends that they desire to stop smoking and ask for their support. Smoking cessation packet given to patient and appropriate pages reviewed today. Contemplation (willing to discuss a quit attempt but not a date Plan 1. [facility] ( ) referral placed via fax. Patient informed that this is a free service for counseling and they will also provide NRT in the form of patches at no cost to the patient every 2 weeks via [employer]. 2. Patient is to use smoking log to help identify when and where they smoke in addition to their mood to help identify patterns and bring with them for their follow-up visit. 3. Patient is to prepare for a quit day by delaying urged to smoke for 10 minutes, slowly reducing amount of cigarettes per day. Patient is also to prepare by having a plan in place for distractions exercise/game/smoke- free places/hobbies/frien d. Patient is also to start gathering items to help deal with cravings including we did discuss items such as water bottles mint gum snacks toothpicks etc.. 4. Discussed signs and symptoms of nicotine withdrawal including insomnia, irritability, headaches, cough, dry mouth, hunger, etc. 5. After discussion of smoking cessation aids patient desires to use Chantix along with nicotine patch and lozenges or gum. Informed of the mechanism of action and how to correctly use. Reinforced the need for counseling in addition to help improve outcome. Patient verbalizes understanding and agrees with plan of care. Follow-up in 2 weeks okay for virtual visit due to patient's schedule conflict with work. 6. Pt is currently a candidate for low-dose CT scan for lung malignancy at this time. We will discuss at follow-up visit This note was completed with the assistance of voice recognition software for dictation purposes. Please excuse any grammatical errors that were not corrected during the review process. 60 minutes was spent with the patient today and greater than 50% of counseling and education was performed by myself ROSANGELA Morrison [facility] Other 09-01-2023 Evaluation note* Encounter Date Diagnosis Assessment Notes Treatment Notes Treatment Clinical Notes Nov, Hip pain, left (ICD-10 - M25.552) Nov, Primary osteoarthritis of left hip (ICD-10 - M16.12) Nov, BMI 36.0-36.9,adult (ICD-10 - Z68.36) Nov, Cigarette nicotine dependence with nicotine-induced disorder (ICD-10 - F17.219) Nov, Other 1. We had a luis g discussion with the patient today concerning their left hip osteoarthritis. The radiographs do show osteoarthritis of the hip. At this time the patient would like to avoid surgical intervention. We did discuss the risk and benefits of surgical versus nonoperative management. The patient would like to proceed with nonoperative management. We discussed that our options include injections, physical therapy, and the consistent use of anti-inflammatories. All 3 of these options, including their risks and benefits, were discussed at length with the patient. 2. Tylenol: Discussed taking Tylenol (acetaminophen). Recommended adjusting their dosing to 1000mg by mouth up to 3 times a day. 3. NSAIDs: Recommended utilizing [id number] anti-inflammatories consistently for a couple weeks. 4. Physical therapy: Discussed formal physical therapy and home regimen. Patient preferred no PT at this time. 5. Injections: Discussed injections as a treatment option. Patient is going to try consistent anti-inflammatories and Tylenol for 2 weeks. If this helps her that is great and she will follow-up as needed. If this does not provide relief in her left hip and she can call our office and we can get her scheduled with Dr. Elizabeth for a left hip intra-articular steroid injection. She can then follow-up with Dr. Elizabeth in the future as the patient continues working on quitting smoking. At this point there is no further need to follow-up with me until she has quit smoking. [facility] [facility] Other 05-05-2022 Evaluation note* Encounter Date Diagnosis Assessment Notes Treatment Notes Treatment Clinical Notes July, Hip pain, left (ICD-10 - M25.552) July, Primary osteoarthritis of left hip (ICD-10 - M16.12) July, BMI 36.0-36.9,adult (ICD-10 - Z68.36) July, Other I had a long discussion with the patient regarding etiology of her symptoms. While I know that she has had injections for the right lower lumbar pain, I think she needs to continue with pain management for the right lower lumbar issues. At this point I am not so sure that the left hip osteoarthritis is the cause of the right lower lumbar pain. In regards to the left hip osteoarthritis, radiographically the patient is a great candidate for a left total hip arthroplasty. However, clinically I am not so sure that her main complaints from a pain standpoint match up with the left hip osteoarthritis as opposed to the right lower lumbar pain. Furthermore, we discussed her nicotine dependence and the significant increased risk of complications as a result. I had a long discussion with her regarding quitting smoking and even offered the smoking cessation program referral, however, the patient would prefer to try quitting on her own. I did explain to her that if we move forward with a left total hip in the future she would need a negative cotinine test. Patient voiced her understanding. At this point in time the patient will work on quitting smoking and call in the future when she would like to check back in. [facility] Other Evaluation noteNo assessment information available [facility] Work Phone: [facility]No [facility] Other Evaluation note* Diagnosis Onset Date Resolution Status Nicotine dependence acute Weight gain acute [facility] Work Phone: Evaluation note* Diagnosis Essential hypertension Unspecified essential hypertension [facility] Diagnosis Onset Date Resolution Status Nicotine dependence acute Weight gain acute Abnormal weight gain acute Cardiovascular risk factor a cute Daytime sleepiness acute Depression acute Essential (primary) hypertension acute Hyperlipidemia acute Obesity, Class III, BMI 40-49.9 (morbid obesity) acute Prediabetes acute Osteopenia acute [facility] Work Phone: Evaluation note* Diagnosis Onset Date Resolution Status Abnormal weight gain acute Cardiovascular risk factor a cute Daytime sleepiness acute Depression acute Essential (primary) hypertension acute Hyperlipidemia acute Obesity, Class III, BMI 40-49.9 (morbid obesity) acute Prediabetes acute Osteopenia acute Abnormal weight gain acute Cardiovascular risk factor a cute Daytime sleepiness acute Depression acute Essential (primary) hypertension acute Hyperlipidemia acute Obesity, Class III, BMI 40-49.9 (morbid obesity) acute Prediabetes acute [facility] Work Phone: Evaluation note* Diagnosis Onset Date Resolution Status Abnormal weight gain acute Cardiovascular risk factor a cute Daytime sleepiness acute Depression acute Essential (primary) hypertension acute Hyperlipidemia acute Obesity, Class III, BMI 40-49.9 (morbid obesity) acute Prediabetes acute Osteopenia acute Abnormal weight gain acute Cardiovascular risk factor a cute Daytime sleepiness acute Depression acute Essential (primary) hypertension acute Hyperlipidemia acute Obesity, Class III, BMI 40-49.9 (morbid obesity) acute Prediabetes acute Primary osteoarthritis of left hip acute Arthropathy of left hip acut e Depression acute Hyperlipidemia acute Hypertension acute Obesity, Class II, BMI 35-39.9 acute S/P total left hip arthroplasty acute [facility] Work Phone: Evaluation note* Diagnosis Onset Date Resolution Status Abnormal weight gain acute Cardiovascular risk factor a cute Daytime sleepiness acute Depression acute Essential (primary) hypertension acute Hyperlipidemia acute Obesity, Class III, BMI 40-49.9 (morbid obesity) acute Prediabetes acute Primary osteoarthritis of left hip acute Arthropathy of left hip acut e Depression acute Hyperlipidemia acute Hypertension acute Obesity, Class II, BMI 35-39.9 acute S/P total left hip arthroplasty acute Aftercare following left hip joint replacement surgery acute S/P total left hip arthroplasty acute [facility] Work Phone: Evaluation note* Diagnosis Onset Date Resolution Status Abnormal weight gain acute Cardiovascular risk factor a cute Daytime sleepiness acute Depression acute Essential (primary) hypertension acute Hyperlipidemia acute Obesity, Class III, BMI 40-49.9 (morbid obesity) acute Prediabetes acute Primary osteoarthritis of left hip acute Arthropathy of left hip acut e Depression acute Hyperlipidemia acute Hypertension acute Obesity, Class II, BMI 35-39.9 acute S/P total left hip arthroplasty acute Aftercare following left hip joint replacement surgery acute S/P total left hip arthroplasty acute Aftercare following left hip joint replacement surgery acute Aftercare following left hip joint replacement surgery acute S/P total left hip arthroplasty acute [facility] Work Phone: Evaluation note* Diagnosis Onset Date Resolution Status Arthropathy of left hip acut e Depression acute Hyperlipidemia acute Hypertension acute Obesity, Class II, BMI 35-39.9 acute S/P total left hip arthroplasty acute Aftercare following left hip joint replacement surgery acute S/P total left hip arthroplasty acute Aftercare following left hip joint replacement surgery acute Aftercare following left hip joint replacement surgery acute S/P total left hip arthroplasty acute Aftercare following left hip joint replacement surgery acute S/P total left hip arthroplasty acute [facility] Work Phone: Evaluation note* Diagnosis Annual physical exam- Primary Routine general medical examination at a health care facility Blood tests for routine general physical examination Laboratory examination ordered as part of a routine general medical examination documented in this encounter [facility] general Narrative - Reported* Type Description Date Medical History Hypertension Medical History hyperlipidemia Medical History pre diabetic Surgical History hysteroscopy Surgical History colonoscopy [facility] Other History general Narrative - Reported* Type Description Date Medical History Hypertension Medical History hyperlipidemia Medical History pre diabetic Medical History Hip arthritis Medical History Osteopenia Surgical History hysteroscopy Surgical History colonoscopy Surgical History [place] teeth extraction Hospitalization History See above [facility] Other InstructionsNot on filedocumented in this encounter [facility] SystemInstructions* Attachments The following attachments cannot be sent through Care Everywhere. * Yearly Physical for Adults (Guinean) documented [facility] SystemProgress note Author Nia Woods [facility] October 03, 2023 5:05pm Note Date/Time October 03, 2023 5:02 pm [facility] [address] [place] [address] Hospitalist Progress Note Signed Patient: Selam Alvarez MR#: [id number] : 1965 Acct:[id number] Age/Sex: 58 / F Adm Date: 4 Loc: 4N Room: 1M5824-5 Type: REG SDC Attending Dr: Sha Keller II, MD Copies to: ~ Date of Service: 10/03/2023 Subjective Subjective Narrative: Pt seen and examined at bedside. She is doing well and BP has been well controlled on Norvasc. She is not in acute distress and is hemodynamically stable. Exam Physical Exam Vital Signs: Temp Pulse Resp BP Pulse Ox O2 Del Method O2 Flow Rate 97.8 F 69 20 103/72 96 Room Air 10 10/03/23 11:37 10/03/23 11:37 10/03/23 11:37 10/03/23 11:37 10/03/23 11:37 10/03/23 16:00 10/02/23 18:10 Narrative: General: Not in acute distress, pleasant and cooperative HEENT: No lymphadenopathy, no thyromegaly, PERRLA, EOMI Chest: Good bilateral air entry, no wheezes or crackles CVS: Normal S1 and S2, no murmurs, no abnormal heart sounds Abdomen: Soft, non tender, no organomegaly Extremities: No lower extremity swelling, normal and intact peripheral pulses Left hip arthroplasty, Objective Lab Results 10/03/23 05:28 10/03/23 05:28 Meds Allergies and Active Meds Allergies bupropion Allergy (Mild, Verified 10/02/23 11:48) Headache bacitracin [Neosporin ([id number]-pey-[id number])] Allergy (Unknown, Verified 10/02/23 11:48) Redness of Skin naproxen Allergy (Unknown, Verified 10/02/23 11:48) Swelling of Lip/Tongue/Throat neomycin [Neosporin (cgx-raf-wchhn)] Allergy (Unknown, Verified 10/02/23 11:48) Redness of Skin polymyxin B [Neosporin (mbi-moe-umaaw)] Allergy (Unknown, Verified 10/02/23 11:48) Redness of Skin shrimp Allergy (Unknown, Verified 10/02/23 11:48) Rash sulfacetamide [Sulfacet-R] Allergy (Unknown, Verified 10/02/23 11:48) Rash sulfur [Sulfacet-R] Allergy (Unknown, Verified 09/18/23 14:00) Rash Active Meds: Active Medications Generic Name Dose Route Start Last Admin Trade Name Freq PRN Reason Stop Dose Admin Acetaminophen 1,000 mg 10/02/23 20:00 10/03/23 12:55 Acetaminophen 500 Mg Tablet PO 10/01/24 19:59 1,000 mg Q8H MACK Administration Amlodipine Besylate 5 mg 10/02/23 22:00 10/02/23 21:12 Amlodipine 5 Mg Tablet PO 10/01/24 21:59 5 mg QHS MACK Administration Ascorbic Acid 500 mg 10/03/23 08:00 10/03/23 09:50 Ascorbic Acid 500 Mg Tablet PO 10/02/24 07:59 500 mg BID.WITH.MEALS MACK Administration Atorvastatin Calcium 40 mg 10/03/23 09:00 10/03/23 09:50 Atorvastatin 40 Mg Tablet PO 10/02/24 08:59 40 mg QAM MACK Administration Cefadroxil 500 mg 10/02/23 21:00 10/03/23 09:51 Cefadroxil 500 Mg Capsule PO 10/09/23 09:01 500 mg BID MACK Administration Diphenhydramine HCl 25 mg 10/02/23 17:54 Diphenhydramine 25 Mg Capsule PO 10/01/24 17:53 Q6H PRN Itching Ferrous Sulfate 324 mg 10/03/23 08:00 10/03/23 09:50 Ferrous Sulfate 324 Mg Tablet.Dr PO 10/02/24 07:59 324 mg BID.WITH.MEALS MACK Administration Lactated Ringer's 1,000 mls @ 75 mls/hr 10/02/23 18:00 10/03/23 09:50 Lactated Ringers IV 10/01/24 17:59 Not Given .[id number] [facility] Lidocaine HCl 0.1 ml 10/02/23 11:09 Lidocaine 1% 50 Ml Vial INTRADERMA PREOP PRN Venipuncture x 1 Dose Lisinopril 30 mg 10/03/23 09:00 10/03/23 09:51 Lisinopril 10 Mg Tablet PO 10/02/24 08:59 30 mg QAM MACK Administration Mineral Oil 1 each 10/05/23 17:54 Mineral Oil (Teller) 1 Each Enema SC ONCE PRN Constipation Morphine Sulfate 15 mg 10/02/23 17:54 Morphine Sulfate 12hr Er 15 Mg Tablet.Er PO Q12H PRN Pain Naloxone HCl 0.4 mg 10/02/23 17:54 Naloxone Hcl 0.4 Mg/Ml Vial IV-PUSH 10/01/24 17:53 Q2M PRN Opioid Reversal Ondansetron HCl 8 mg 10/02/23 17:54 10/02/23 19:24 Ondansetron Odt 4 Mg Tab.Rapdis PO 10/01/24 17:53 8 mg TID PRN Administration Nausea Oxycodone HCl 5 mg 10/02/23 17:54 Oxycodone Ir 5 Mg Tablet PO Q4HR PRN Pain Scale 6 - 10 Polyethylene Glycol 17 gm 10/03/23 09:00 10/03/23 09:55 Polyethylene Glycol 3350 17 Gm Powd.Pack PO 10/10/23 08:59 17 gm DAILY MACK Administration Prednisone 10 mg 10/04/23 09:00 Prednisone 10 Mg Tablet PO 11/02/23 09:01 DAILY MACK Prochlorperazine Maleate 10 mg 10/02/23 17:54 Prochlorperazine Maleate 5 Mg Tablet PO 10/01/24 17:53 Q6H PRN Nausea Rivaroxaban 10 mg 10/03/23 09:00 10/03/23 09:55 Rivaroxaban 10 Mg Tablet PO 11/06/23 09:01 10 mg DAILY MACK Administration Senna/Docusate Sodium 2 tab 10/03/23 09:00 10/03/23 09:55 Sennosides/Docusate 8.6-50mg 1 Tab Tablet PO 11/02/23 08:59 2 tab DAILY MACK Administration Sodium Chloride 0 ml 10/02/23 12:00 Sodium Chloride 0.9 % 10 Ml Syringe IV-PUSH 10/01/24 11:59 PRN PRN Flush Sodium Chloride 0 ml 10/02/23 11:09 Sodium Chloride 0.9 % 10 Ml Syringe IV-PUSH 10/01/24 11:08 PRN PRN Flush Sodium Chloride 0 ml 10/02/23 22:00 10/03/23 13:52 Sodium Chloride 0.9 % 10 Ml Syringe IV-PUSH 10/01/24 21:59 Not Given QSHIFT MACK Temazepam 7.5 mg 10/02/23 17:54 Temazepam 7.5 Mg Capsule PO 03/30/24 17:53 QHS PRN Insomnia Tramadol HCl 50 mg 10/02/23 17:54 10/02/23 19:24 Tramadol 50 Mg Tablet PO 03/30/24 17:53 50 mg Q6H PRN Administration Pain Scale 1 - 5 A&P - Hospitalist Assessment/Plan (1) Obesity, Class II, BMI 35-39.9: (2) Hypertension: (3) Hyperlipidemia: (4) Depression: (5) Arthropathy of left hip: (6) S/P total left hip arthroplasty: Plan S/p left hip arthroplasty Management per Ortho Continue PT/OT Continue Amlodipin 5 mg PO daily for HTN Continue Lipitor for dyslipidemia Plan discussed with pt at bedside Time Spent With Patient (min): 30 Documented By: Nia Woods MD 10/03/23 1658 Signed By: <Electronically signed by Nia Woods MD> 10/03/23 1700 [facility] Work Phone: Summary Purpose Family History Relationship Condition Age at Onset Recorded Date/T alisha brother Diabetes mellitus Unknown father Heart disease Unknown Unknown Hypertension Unknown Myocardial infarction Unknown Not Specified Diabetes mellitus Unknown Relationship Condition Age at Onset Recorded Date/T alisha brother Diabetes mellitus Unknown father Heart disease Unknown Unknown Hypertension Unknown Myocardial infarction Unknown mother Diabetes mellitus Unknown Advance Directives Advance Directive Response Recorded Date/ Time Advance Directives No August 20 1:47pm Advance Directive Response Recorded Date/ Time Advance Directives No August 20 12:47pm Reason for Referral Reason Please refer t o smoking cessation program Diagnosis 1 Cigarette nicotine d ependence with nicotine-induced disorder (F17.219) Referral Organization [facility] Referring Provider First Name Sha Referring Provider Last Name Krishna GREEN Referring Provider Specialty Orthopedic Surgery Referred Organization [facility] Referred Provider Key Sands Referred Address [address] [place] [address],[facility],[place],[address] Referred Provider Specialty Smoking Cess ation Counseling Referral Priority Routine General Notes Ann Yoder 09:23:41 AM >received today, p2p sent at this time for scheduling Chief Complaint and Reason for Visit Chief Complaint Smoking Cess Smoking Cessation Reason for Visit Nicotine dependence Weight gain Chief Complaint Smoking Cessation f/ u per HM WMN\smoking NEEDS INITIAL WMN PPWK OP SP LT HIP PAIN M85.80 Z79.899 Reason for Visit Nicotine dependence Weight gain Abnormal weight gain Cardiovascular risk factor Daytime sleepiness Depression Essential (primary) hypertension Hyperlipidemia Obesity, Class III, BMI 40-49.9 (morbid obesity) Prediabetes Osteopenia Chief Complaint per HM WMN\smoking N EEDS INITIAL WMN PPWK OP SP LT HIP PAIN M85.80 Z79.899 Hip pain Reason for Visit Abnormal weight gain Cardiovascular risk factor Daytime sleepiness Depression Essential (primary) hypertension Hyperlipidemia Obesity, Class III, BMI 40-49.9 (morbid obesity) Prediabetes Osteopenia Abnormal weight gain Cardiovascular risk factor Daytime sleepiness Depression Essential (primary) hypertension Hyperlipidemia Obesity, Class III, BMI 40-49.9 (morbid obesity) Prediabetes Chief Complaint per HM WMN\smoking N EEDS INITIAL WMN PPWK OP SP LT HIP PAIN M85.80 Z79.899 Hip pain H&P LTHA L KEVIN preop Prolonged Hip pain Hip pain Reason for Visit Abnormal weight gain Cardiovascular risk factor Daytime sleepiness Depression Essential (primary) hypertension Hyperlipidemia Obesity, Class III, BMI 40-49.9 (morbid obesity) Prediabetes Osteopenia Abnormal weight gain Cardiovascular risk factor Daytime sleepiness Depression Essential (primary) hypertension Hyperlipidemia Obesity, Class III, BMI 40-49.9 (morbid obesity) Prediabetes Primary osteoarthritis of left hip Arthropathy of left hip Depression Hyperlipidemia Hypertension Obesity, Class II, BMI 35-39.9 S/P total left hip arthroplasty Chief Complaint Hip pain H&P LTHA L KEVIN preop Prolonged Hip pain Hip pain 2 WK POST OP LTHA 2 WEEK INCISION CHECK Reason for Visit Abnormal weight gain Cardiovascular risk factor Daytime sleepiness Depression Essential (primary) hypertension Hyperlipidemia Obesity, Class III, BMI 40-49.9 (morbid obesity) Prediabetes Primary osteoarthritis of left hip Arthropathy of left hip Depression Hyperlipidemia Hypertension Obesity, Class II, BMI 35-39.9 S/P total left hip arthroplasty Aftercare following left hip joint replacement surgery S/P total left hip arthroplasty Chief Complaint Hip pain H&P LTHA L KEVIN preop Prolonged Hip pain Hip pain 2 WK POST OP LTHA 2 WEEK INCISION CHECK Z47.1 - Aftercare following joint replacement surg 4 WK RECHECK LTHA Reason for Visit Abnormal weight gain Cardiovascular risk factor Daytime sleepiness Depression Essential (primary) hypertension Hyperlipidemia Obesity, Class III, BMI 40-49.9 (morbid obesity) Prediabetes Primary osteoarthritis of left hip Arthropathy of left hip Depression Hyperlipidemia Hypertension Obesity, Class II, BMI 35-39.9 S/P total left hip arthroplasty Aftercare following left hip joint replacement surgery S/P total left hip arthroplasty Aftercare following left hip joint replacement surgery Aftercare following left hip joint replacement surgery S/P total left hip arthroplasty Chief Complaint Hip pain Hip pain 2 WK POST OP LTHA 2 WEEK INCISION CHECK Z47.1 - Aftercare following joint replacement surg 4 WK RECHECK LTHA Z47.1 - Aftercare following joint replacement surg 6 WEEKS Reason for Visit Arthropathy of left hip Depression Hyperlipidemia Hypertension Obesity, Class II, BMI 35-39.9 S/P total left hip arthroplasty Aftercare following left hip joint replacement surgery S/P total left hip arthroplasty Aftercare following left hip joint replacement surgery Aftercare following left hip joint replacement surgery S/P total left hip arthroplasty Aftercare following left hip joint replacement surgery S/P total left hip arthroplasty Additional Source Comments REASON FOR VISIT (unrecogniz ed section and content) Reason Comments Med Refill Reason Comments Annual Exam INFORMATION SOURCE (unrecogn ized section and content) DATE CREATED AUTHOR 12/06/2021 [facility] DATE CREATED AUTHOR AUTHOR'S ORGANIZ ATION 12/29/2023 [facility] DATE CREATED AUTHOR AUTHOR'S ORGANIZ ATION 01/11/2024 [facility] DATE CREATED AUTHOR AUTHOR'S ORGANIZ ATION 01/11/2024 [facility] Care Teams (unrecognized sec tion and content) Team Status: Active Member Role Status Dates CHERRI Shipley Primary Care Provider Active Team Status: Inactive Member Role Status Dates CHERRI Shipley Primary Care Provider Active Start: July 11, 2023 End: July 11, 2023 Key Sands APRN Attending Provider Active Start: July 11, 2023 End: July 11, 2023 Team Status: Inactive Member Role Status Dates CHERRI Shipley Primary Care Provider Active Start: August 02, 2023 End: August 02, 2023 Sha Keller II, MD Attending Provider Active Start: August 02, 2023 End: August 02, 2023 Team Status: Inactive Member Role Status Dates CHERRI Shipley Primary Care Provider Active Start: August 22, 2023 End: August 22, 2023 Key Sands APRN Attending Provider Active Start: August 22, 2023 End: August 22, 2023 Team Status: Inactive Member Role Status Dates Jacob Goel DRAFTER (CAD) ELECTRONIC-C Primary Care Provider Active Start: September 18, 2023 End: September 18, 2023 Sha Keller II, MD Attending Provider Active Start: September 18, 2023 End: September 18, 2023 Team Status: Inactive Member Role Status Dates Jacob Goel , DRAFTER (CAD) ELECTRONIC-C Primary Care Provider Active Start: September 19, 2023 End: September 19, 2023 Sha Keller II, MD Attending Provider Active Start: September 19, 2023 End: September 19, 2023 Team Status: Active Member Role Status Dates Jacob Goel , DRAFTER (CAD) ELECTRONIC-C Primary Care Provider Active Start: September 20, 2023 Sha Keller II, MD Attending Provider Active Start: September 20, 2023 Team Status: Inactive Member Role Status Dates Jacob Goel , DRAFTER (CAD) ELECTRONIC-C Primary Care Provider Active Start: September 21, 2023 End: September 21, 2023 Sha Keller II, MD Attending Provider Active Start: September 21, 2023 End: September 21, 2023 Team Status: Inactive Member Role Status Dates Jacob Goel , DRAFTER (CAD) ELECTRONIC-C Primary Care Provider Active Start: October 02, 2023 End: October 03, 2023 Mariam Ronquillo RN Other Provider Active Star t: October 02, 2023 End: October 03, 2023 Kayla Arenas RN Other Provider Active Start : October 02, 2023 End: October 03, 2023 Gilma Okeefe RN Other Provider Active Star t: October 02, 2023 End: October 03, 2023 Fallon Bland , IAIN Other Provider Active Start: Alejandra henning 2023 End: October 03, 2023 Talisha Gonzalez , IAIN Other Provider Active Start: Mala sharma 2023 End: October 03, 2023 Viky Islas MD Other Provider Active Start: October 02, 2023 End: October 03, 2023 Jose Luis Cardoso DO Other Provider Active Start : October 02, 2023 End: October 03, 2023 Zoltan Jason MD Other Provider Active Start : October 02, 2023 End: October 03, 2023 Andrew Bradford DO Other Provider Active Start: October 02, 2023 End: October 03, 2023 Don Duggan MD Other Provider Active Start: October 02, 2023 End: October 03, 2023 Aby Hale MD Other Provider Active Start : October 02, 2023 End: October 03, 2023 Thanh Sanchez MD Other Provider Active Start: 2023 End: October 03, 2023 Hoda Baca APRN Other Provider Active Start: October 02, 2023 End: October 03, 2023 Jhon Franco MD Other Provider Active Start: October 02, 2023 End: October 03, 2023 Santiago Schultz MD Other Provider Active Start: 2023 End: October 03, 2023 Lucia العراقي MD Other Provider Active Start: October 02, 2023 End: October 03, 2023 Lino Edwards MD Other Provider Active Start: October 02, 2023 End: October 03, 2023 Peyman Guzmán DO Other Provider Active Start: October 02, 2023 End: October 03, 2023 Mary Thao MD Other Provider Active Start: Ju ly 2023 End: October 03, 2023 Sachin Colby MD Other Provider Active Start: Sep End: October 03, 2023 Dee Santos NP-[place] Other Provider Active St art: October 02, 2023 End: October 03, 2023 Fariba Miller APRN Other Provider Active Star t: October 02, 2023 End: October 03, 2023 Brian Leigh MD Other Provider Active Start: October 02, 2023 End: October 03, 2023 Jef Chavez MD Other Provider Active Start: Ju ly 2023 End: October 03, 2023 Rocael Reza MD Other Provider Active Start: Sep End: October 03, 2023 Craig Hoover MD Other Provider Active Star t: October 02, 2023 End: October 03, 2023 Dex Lobmardo MD Other Provider Active Start: Alejandra milady 2023 End: October 03, 2023 Deja Lria DO Other Provider Active Start: Mala sharma 2023 End: October 03, 2023 Alon Brand , Other Provider Active Start : October 02, 2023 End: October 03, 2023 Shirlene Barrios APRN Other Provider Active Start: October 02, 2023 End: October 03, 2023 Hermelindo Brown , Other Provider Active Start: October 02, 2023 End: October 03, 2023 Tonya Davenport MD Other Provider Active Sta rt: October 02, 2023 End: October 03, 2023 Lynette Donohue APRN Other Provider Active Start : October 02, 2023 End: October 03, 2023 Genna Emerson APRN Other Provider Active St art: October 02, 2023 End: October 03, 2023 Maycol Fermin MD Other Provider Active Start: Alejandra henning 2023 End: October 03, 2023 Woodrow Bowers MD Other Provider Active S tart: October 02, 2023 End: October 03, 2023 Tank Oglesby , Other Provider Active Star t: October 02, 2023 End: October 03, 2023 Anthony Smith DO Other Provider Active Start: October 02, 2023 End: October 03, 2023 Taqueria Reza MD Other Provider Active Start: October 02, 2023 End: October 03, 2023 Sedrick Cruz MD Other Provider Active Start: October 02, 2023 End: October 03, 2023 Marianne Bowser APRN Other Provider Active Star t: October 02, 2023 End: October 03, 2023 Nia Woods MD Admit Provider Active Start: Alejandra milady 2023 End: October 03, 2023 Bishop Sepulveda MD Other Provider Active Start: Mala ly 2023 End: October 03, 2023 Italia Wise RN Other Provider Active Start: J milady 2023 End: October 03, 2023 Sha Keller II, MD Attending Provider Active Start: October 02, 2023 End: October 03, 2023 Team Status: Active Member Role Status Dates CHERRI Shipley Primary Care Provider Active Start: October 02, 2023 Sha Keller II, MD Attending Provi chen, Other Provider Active Start: October 02, 2023 Team Status: Active Member Role Status Dates CHERRI Shipley Primary Care Luis Daniel hernandez Attending Provider Active Start: July 04, 2023 Team Status: Inactive Member Role Status Dates Sha Keller II, MD Attending Provider Active Team Status: Inactive Member Role Status Dates Key Sands APRN Attending Provider Active Start: February 14, 2023 End: February 14, 2023 Team Status: Inactive Member Role Status Dates Key Sands APRN Attending Provider Active Start: February 26, 2023 End: February 26, 2023 Team Status: Active Member Role Status Dates Provider Conversion Attending Provider Active St art: April 04, 2023 Team Status: Inactive Member Role Status Dates PHYSICIAN NO FAMILY Primary Care Provider Active Start: April 04, 2023 End: April 04, 2023 Key Sands APRN Attending Provider Active Start: April 04, 2023 End: April 04, 2023 Team Status: Inactive Member Role Status Dates Key Sands APRN Attending Provider Active Start: April 30, 2023 End: April 30, 2023 CHERRI Shipley Primary Care Provider Active Start: April 30, 2023 End: April 30, 2023 Senior Medical Transcriptionist Relationship Specialty Start Date End Date Jacob Goel APRN-[facility] [address], [place] [address] PCP - General Family Medicine 03/14/18 Team Status: Inactive Member Role Status Dates CHERRI Shipley Primary Care Provider Active Start: May 28, 2023 End: May 28, 2023 Key Sands APRN Attending Provider Active Start: May 28, 2023 End: May 28, 2023 Team Status: Inactive Member Role Status Dates CHERRI Shipley Primary Care Provider Active Start: September 20, 2023 End: September 20, 2023 Sha Keller II, MD Attending Provider Active Start: September 20, 2023 End: September 20, 2023 Team Status: Inactive Member Role Status Dates CHERRI Shipley Primary Care Provider Active Start: October 18, 2023 End: October 18, 2023 Sha Keller II, MD Attending Provider Active Start: October 18, 2023 End: October 18, 2023 Team Status: Inactive Member Role Status Dates CHERRI Shipley Primary Care Provider Active Start: November 01, 2023 End: November 01, 2023 Sha Keller II, MD Attending Provider Active Start: November 01, 2023 End: November 01, 2023 Team Status: Inactive Member Role Status Dates CHERRI Shipley Primary Care Provider Active Start: November 15, 2023 End: November 15, 2023 Sha Keller II, MD Attending Provider Active Start: November 15, 2023 End: November 15, 2023 Team Status: Inactive Member Role Status Dates CHERRI Shipley Primary Care Provider Active Start: December 27, 2023 End: December 27, 2023 Sha Keller II, MD Attending Provider Active Start: December 27, 2023 End: December 27, 2023 Senior Medical Transcriptionist Relationship Specialty Start Date End Date Jacob Goel APRN-[facility] [address] [place] [address] PCP - General Family Medicine 03/14/18 Goals (unrecognized section and content) Goals may be documented in a n alternate section FOR RECORDS PERTAINING TO PATIENTS WHO ARE OR HAVE BEEN ENROLLED IN A CHEMICAL DEPENDENCY/SUBSTANCEABUSE PROGRAM, SOME INFORMATION MAY BE OMITTED. This clinical summary was aggregated from multiple sources. Caution should be exercised in using it in the provision of clinical care. This summary normalizes information from multiple sources, and as a consequence, information in this document may materially change the coding, format and clinical context of patient data. In addition, data may be omitted in some cases. CLINICAL DECISIONS SHOULD BE BASED ON THE PRIMARY CLINICAL RECORDS. [employer] provides no warranty or guarantee of the accuracy or completeness of information in this document.
[2024-01-22 15:11] LABS: Age Gdln ACOG Testing Note (.); HPV Aptima Negative (Negative); IGP, Aptima HPV, rfx 16/18,45 Note (.)
== END 2024-01-14 22:12 | disposition home or self-care (01) ==
LOC: LAB 22:11
PROVIDERS: PCP Nurse Practitioner; Visit Provider Obstetrics & Gynecology
DX: Z01.419 Encounter for gynecological examination (general) (routine) without abnormal findings (principal)
CPT/HCPCS: 88175

== ENCOUNTER 2025-01-20 18:43 | Outpatient (REF) | payer OTHER, SELFPAY ==
--- OUTSIDE RECORDS SUMMARY | 2025-01-15 15:40 | XMS_ITS | Encounter Summary ---
Author Organization [facility] tem Address [id number] [address] [place] [address] Care Team Providers Care Public Space Attendant Name Role Phone Tank Hinds Julio ELECTRONICS DETAIL DRAFTSPERSONM[facility] Primary Care Provider + Reason for Visit * ReasonCommentsWeight Check Encounter Details DateTypeDepartmentCare Team (Latest Contact Info)Cbsxvjnjvpq13/06/2025 3:40 PM ESTOffice Visit [facility] - [facility] Medicine [address] [place] [address] Nicolasa Pino, [facility] [address] [place] [address] Type 2 diabetes mellitus without complication, without long-term current use of insulin ([facility]) (Primary Dx); Abnormal CBC; Mixed hyperlipidemia; Essential hypertension; Class 3 severe obesity due to excess calories with serious comorbidity and body mass index (BMI) of40.0 to 44.9 in adult ([facility]); Irritant contact dermatitis due to other chemical products Social History Tobacco UseTypesPacks/DayYears UsedDateSmoking Tobacco: FormerCigarettes0.630 Smokeless Tobacco: NeverAlcohol UseStandard Drinks/WeekCommentsYes0 (1 standard drink = 0.6 oz pure alcohol)RARELYPHQ-2AnswerDate RecordedTotal Eetbd99903/17/2024 ChildcareAnswerDate JhxglaohZxlxplicoPwxltuj67/06/2019EmploymentAnswerDate FcvfyftaLajdzauufyQgiquvt62/06/2019Hunger ScreeningAnswerDate RecordedWithin the past 12 months we worried whether our food would run out before we got money to buy more.Never True01/15/2025Within the past 12 months the food we bought just didn't last and we didn't have money to get more.Never True01/15/2025Purpose - LifeAnswerDate RecordedPurpose and direction in tstjKpadinw59/11/2021 CommentsNoSex and Gender InformationValueDate RecordedSex Assigned at BirthNot on fileLegal QjaYqxdeb29/06/2015 11:37 AM EDTGender IdentityNot on fileSexual OrientationNot on filedocumented as of this encounter Last Filed Vital Signs Vital SignReadingTime TakenCommentsBlood Cwxlzdnd491/6001/15/2025 3:46 PM EST Llqjv730001/15/2025 3:46 PM FVCVnjkiocrbkd98.1 ??C (98.7 ??F)01/15/2025 3:46 PM ESTRespiratory Kjac089503/17/2024 3:46 PM ESTOxygen Fwwtvdwsph01%01/15/2025 3:46 PM ESTInhaled Oxygen Concentration--Zmesgb668.5 kg (221 lb 9.6 oz)01/15/2025 3:46 PM GVXAcrmgx195.4 cm (5' 1.95 )01/15/2025 3:46 PM ESTBody Mass Index40.6 01/15/2025 3:46 PM ESTdocumented in this encounter Patient Instructions * Attachments The following attachments cannot be sent through Care Everywhere. * How to use a pen injector ([place] Citizen) * Semaglutide ([place] Citizen) * Obstructive sleep apnea in adults ([place] Citizen) documented in this encounter Progress Notes * Nicolasa Pino APRN-BULLARD OPERATOR - 01/15/2025 3:40 PM EST DIABETIC RECHECK and BP re-check as well as routine yearly labs, she's fasting Patient self monitoring includes Not checking BG at home. Patient experiences hypoglycemia None. Patient has experienced symptoms of hyperglycemia none. Currently prescribed diet is no plan. Patient is not following the prescribed dietary plan. Patient daily activity is: The patient does not participate in regular exercise at present.. Patient does not experience numbness or burning in their hands or feet. Patient does not have vision changes. Patients eye doctor is: Last eye exam was: 2-3 days ago and neg for diabetic eye changes Patient is monitoring their blood pressure at home. Home BP readings are generally: 120-136 / 75-85 mmHg. Patient is experiencing: taking medications as instructed, no medication side effects noted, no chest pain on exertion, no dyspnea on exertion, no swelling of ankles, no orthostatic dizziness or lightheadedness, no palpitations, and no intermittent claudication symptoms Issues affecting compliance with diabetic self management include: none Physical Exam Vitals reviewed. Constitutional: Appearance: Normal appearance. She is obese. HENT: Head: Normocephalic and atraumatic. Mouth/Throat: Mouth: Mucous membranes are moist. Eyes: General: No scleral icterus. Pupils: Pupils are equal, round, and reactive to light. Neck: Thyroid: No thyroid mass, thyromegaly or thyroid tenderness. Vascular: No carotid bruit. Cardiovascular: Rate and Rhythm: Normal rate and regular rhythm. Pulses: Dorsalis pedis pulses are 2+ on the right side and 2+ on the left side. Heart sounds: Normal heart sounds. Pulmonary: Effort: Pulmonary effort is normal. Breath sounds: Normal breath sounds. Abdominal: General: Bowel sounds are normal. Palpations: Abdomen is soft. Tenderness: There is no abdominal tenderness. Musculoskeletal: Right lower leg: No edema. Left lower leg: No edema. Feet: Right foot: Protective Sensation: 8 sites tested. 8 sites sensed. Skin integrity: Skin integrity normal. Toenail Condition: Right toenails are normal. Left foot: Protective Sensation: 8 sites tested. 8 sites sensed. Skin integrity: Skin integrity normal. Toenail Condition: Left toenails are normal. Skin: General: Skin is warm. Capillary Refill: Capillary refill takes less than 2 seconds. Neurological: General: No focal deficit present. Mental Status: She is alert and oriented to person, place, and time. Psychiatric: Mood and Affect: Mood normal. Behavior: Behavior normal. Diabetic foot exam: Visual exam was normal without lesions. Left: Pulses Dorsalis Pedis: present Vibratory sensation normal Filament test present Right: Pulses Dorsalis Pedis: present Vibratory sensation normal Filament test present 1. Type 2 diabetes mellitus without complication, without long-term current use of insulin ([facility]) (Primary) Patient's A1c is excellent at 6.4% today. She is interested in starting a G LP 1 inhibitor for weight loss and continuous A1c control. Place order for Ozempic and side effects and mechanism of actionwere discussed at last visit and review of this was also given an after visit summary. Patient has no history of pancreatitis or personal or family history of medullary thyroid cancer. - TSH with Reflex; Future - Comprehensive metabolic panel; Future - Microalbumin - Albumin: Creatinine Urine Ratio; Future - POCT Hemoglobin A1c - Microalbumin - Albumin: Creatinine Urine Ratio - Comprehensive metabolic panel - TSH with Reflex 2. Abnormal CBC Re-check CBC as below - CBC auto differential; Future - CBC auto differential 3. Mixed hyperlipidemia Check labs below - Lipid profile; Future - Lipid profile 4. Essential hypertension Blood pressure at goal today and blood pressure diary from home was reviewed and about 50% of her blood pressures are at goal of less than 130/80. Patient does not want to change her lisinopril dose today and would prefer to continue to check her blood pressure 2 to 3 times per week at home. She agrees to notify provider if more than 50% are over 130/80. 5. Class 3 severe obesity due to excess calories with serious comorbidity and body mass index (BMI)of 40.0 to 44.9 in adult ([facility]) Patient noted to have elevated BMI and the following intervention(s) were applied: encouragement toexercise. Patient has several risk factors for obstructive sleep apnea and this was discussed with patient but she will consider getting the sleep study done - she is unsure if she wants to at this time. 6. Irritant contact dermatitis due to other chemical products Patient may use loratadine and triamcinolone cream and avoid contact with gym sanitary wipes when she is working out. Patient should follow up in 3 months or sooner as needed for her diabetes and to check her weight loss on the G LP 1 inhibitor. MANNY Gutierres 01/16/25 1321 documented in this encounter Plan of Treatment DateTypeDepartmentCare Team (Latest Contact Info)Gbnaibvzglo62/19/2025 11:40 AM ESTOffice Visit [facility] - Family Medicine [facility] [place] [address] Nicolasa Pino, ELECTRONICS DETAIL DRAFTSPERSON-BULLARD OPERATOR [address] [place] [address] documented as of this encounter Procedures Procedure NamePriorityDate/TimeAssociated DiagnosisCommentsTSH WITH REFLEX Sulhiyj1101/15/2025 4:51 PM EST Type 2 diabetes mellitus without complication, without long-term current use of insulin ([facility]) CBC WITH AUTO DMBPYSFZWJQUNazxgjj16/06/2025 4:51 PM EST Abnormal CBC MICROALBUMIN / CREATININE URINE JTFTEHdqlikx54/06/2025 4:51 PM EST Type 2 diabetes mellitus without complication, without long-term current use of insulin ([facility]) LIPID JJPBBEVBkphmmf01/06/2025 4:51 PM EST Mixed hyperlipidemia COMPREHENSIVE METABOLIC HLBCHMlkbdll67/06/2025 4:51 PM EST Type 2 diabetes mellitus without complication, without long-term current use of insulin ([facility]) POCT HEMOGLOBIN M0CRzxbpiq55/06/2025 4:39 PM EST Type 2 diabetes mellitus without complication, without long-term current use of insulin ([facility]) documented in this encounter Results * CBC auto differential (01/15/2025 4:51 PM EST)ComponentValueRef RangeTest MethodAnalysis TimePerformed AtPathologist SnfjxcikaAWF26.04 - 11 X10^9/L 01/15/2025 10:32 PM [facility] LABORATORYRBC Count5.023.8 - 5.2 X10^12/L103/17/2024 10:32 PM [facility] Exbnmdpwhk59.011.7 - 15.5 g/dL01/15/2025 10:32 PM [facility] ADTMGCICVIHrgwxrsjzo46.235 - 47 %01/15/2025 10:32 PM [facility] NMIOOPRJURXOD6870 - 100 fL01/15/2025 10:32 PM [facility] WSPUVSZAKEZPO25.927 - 34 pg01/15/2025 10:32 PM [facility] SHEWSNFZCOYKHV47.232 - 36 g/dL01/15/2025 10:32 PM [facility] KDRTVHJEUKVXM06.011.5 - 15 %01/15/2025 10:32 PM [facility] LABORATORYPlatelet Mvdfq157298 - 450 X10^9/L103/17/2024 10:32 PM [facility] LABORATORYMPV8.67 - 12 fL01/15/2025 10:32 PM [facility] LABORATORYNeutrophils %61.1%01/15/2025 10:32 PM [facility] LABORATORYLymphocytes %26.8%01/15/2025 10:32 PM [facility] LABORATORYMonocytes %8.2%01/15/2025 10:32 PM [facility] LABORATORYEosinophils %3.0%01/15/2025 10:32 PM [facility] LABORATORYBasophils %0.9%01/15/2025 10:32 PM [facility] LABORATORYNeutrophils Absolute (A)6.11.5 - 6.6 X10^9/L103/17/2024 10:32 PM [facility] LABORATORYLymphocytes Absolute2.71.0 - 3.5 X10^9/L103/17/2024 10:32 PM [facility] LABORATORYMonocytes Absolute0.80.0 - 0.9 X10^9/L103/17/2024 10:32 PM [facility] LABORATORYEosinophils Absolute0.30.0 - 0.4 X10^9/L103/17/2024 10:32 PM [facility] LABORATORYBasophils Absolute0.10.0 - 0.2 X10^9/L103/17/2024 10:32 PM [facility] LABORATORYDifferential TypeAUTOMATED PPTXTECGAUXU97/06/2025 10:32 PM [facility] LABORATORYSpecimen (Source)Anatomical Location / LateralityCollection Method / VolumeCollection TimeReceived TimeBloodVenous blood / Eymwgij5401/15/2025 4:51 PM EST01/15/2025 4:51 PM EST Narrative Authorizing ProviderResult TypeResult StatusNicolasa Pino ELECTRONICS DETAIL DRAFTSPERSON-CNPLAB BLOOD ORDERABLESFinal ResultPerforming OrganizationAddressCity/State/ZIP CodePhone Number [facility] [address] [place] [address], * Microalbumin - Albumin: Creatinine Urine Ratio (01/15/2025 4:51 PM EST) ComponentValueRef RangeTest MethodAnalysis TimePerformed AtPathologist SignatureURINE CREATININE,RDM82.47mg/dL01/15/2025 10:45 PM [facility] LABORATORYMALB/CREAT RATIO01/15/2025 10:45 PM [facility] LABORATORYComment:Urine Microalbumin / Creatinine ratio not calculated due to non-numeric component.MICROALBUMIN, URINE<0.70.0 - 1.9 mg/dL01/15/2025 10:45 PM [facility] LABORATORYSpecimen (Source)Anatomical Location / LateralityCollection Method / VolumeCollection TimeReceived Time UrineUrine specimen collection, clean catch / Ulphpxh4701/15/2025 4:51 PM EST 01/15/2025 4:51 PM EST Narrative Authorizing ProviderResult TypeResult StatusNicolasa Pino ELECTRONICS DETAIL DRAFTSPERSON-CNPURINE ORDERABLESFinal ResultPerforming OrganizationAddressCity/State/ZIP CodePhone Number [facility] [address] [place] [address], [place] [phone] * (ABNORMAL) Lipid profile (01/15/2025 4:51 PM EST)ComponentValueRef RangeTest MethodAnalysis TimePerformed AtPathologist PycpqajiuBUTLMFKWWUU867(L)150 - 200 mg/dL01/15/2025 10:47 PM [facility] EXTGABRBWAWYGUFAPOEUSP120 (H)27 - 150 mg/dL01/15/2025 10:47 PM [facility] LABORATORYHDL GZXTZSWSDPZ56>39 mg/dL01/15/2025 10:47 PM [facility] LABORATORYComment: HDL <40 mg/dL - High Risk HDL > or = 40mg/dL- Desirable HDL >60 mg/dL - Negative Risk LDL (CALC)66<130 mg/dL01/15/2025 10:47 PM [facility] Comment: LDL <100 mg/dL - Desirable LDL >160 mg/dL - High Risk CHOLESTEROL:HDL3.31.0 - 5. 10:47 PM [facility] LABORATORYVERY LOW OLFYJQJLWQY81(H)0 - 30 mg/dL01/15/2025 10:47 PM [facility] LABORATORYSpecimen (Source)Anatomical Location / Laterality Collection Method / VolumeCollection TimeReceived TimeBloodVenous blood / Cpjzmhm6401/15/2025 4:51 PM EST01/15/2025 4:51 PM EST Narrative Authorizing ProviderResult TypeResult StatusNicolasa Pino ELECTRONICS DETAIL DRAFTSPERSON-CNPLAB BLOOD ORDERABLESFinal ResultPerforming OrganizationAddressCity/State/ZIP CodePhone Number [facility] [address] [place] [address], * (ABNORMAL) Comprehensive metabolic panel (01/15/2025 4:51 PM EST)Component ValueRef RangeTest MethodAnalysis TimePerformed AtPathologist SignatureSODIUM 287496 - 146 mmol/L103/17/2024 10:47 PM [facility] POTASSIUM4.13.5 - 5.0 mmol/L103/17/2024 10:47 PM [facility] JLDOQMKWTFLPZTZFXY58070 - 109 mmol/L103/17/2024 10:47 PM [facility] LABORATORYCARBON DMKHXTR5646 - 32 mmol/L103/17/2024 10:47 PM [facility] LABORATORYANION RQE839 - 15 mmol/L103/17/2024 10:47 PM EST [facility] LABORATORYBLOOD UREA JYWVOIYQ819 - 23 mg/dL01/15/2025 10:47 PM [facility] LABORATORYCREATININE0.680.40 - 1.00 mg/dL 01/15/2025 10:47 PM [facility] LABORATORYComment:METHOD TRACEABLE TO IDMS SWIHIUFQURBSBDU215(H)65 - 99 mg/dL01/15/2025 10:47 PM [facility] LABORATORYCALCIUM9.28.5 - 10.5 mg/dL01/15/2025 10:47 PM [facility] LABORATORYTOTAL PROTEIN7.46.0 - 8.0 g/dL 01/15/2025 10:47 PM [facility] LABORATORYALBUMIN4.43.2 - 5.3 g/dL01/15/2025 10:47 PM [facility] LABORATORYALKALINE HYRIUUIAFVN1097 - 130 U/L103/17/2024 10:47 PM [facility] MHUOMNZXVAYYV76<=41 U/L103/17/2024 10:47 PM [facility] CRJNTTTWGKCGQ73<=31 U/L103/17/2024 10:47 PM [facility] LABORATORYBILIRUBIN,TOTAL0.40.3 - 1.2 mg/dL01/15/2025 10:47 PM [facility] LABORATORYEGFR Non-Race Dependent>90>=60 ml/min/1.73sq.m 01/15/2025 10:47 PM [facility] LABORATORYComment: Reported eGFR is based on the CKD-EPI 2020 equation that does not use a race coefficient. Specimen (Source)Anatomical Location / LateralityCollection Method / Volume Collection TimeReceived TimeBloodVenous blood / Atchcul4201/15/2025 4:51 PM EST 01/15/2025 4:51 PM EST Narrative Authorizing ProviderResult TypeResult StatusBrrell Pino ELECTRONICS DETAIL DRAFTSPERSON-CNPLAB BLOOD ORDERABLESFinal ResultPerforming OrganizationAddressCity/State/ZIP CodePhone Number [facility] [address] [place] [address], * TSH with Reflex (01/15/2025 4:51 PM EST)ComponentValueRef RangeTest Method Analysis TimePerformed AtPathologist SignatureTSH0.500.49 - 4.67 uIU/mL 01/15/2025 10:53 PM [facility] LABORATORYSpecimen (Source) Anatomical Location / LateralityCollection Method / VolumeCollection Time Received TimeBloodVenous blood / Zgqqznr4901/15/2025 4:51 PM EST01/15/2025 4:51 PM EST Narrative Authorizing ProviderResult TypeResult StatusNicolasa Javon Pino ELECTRONICS DETAIL DRAFTSPERSON-CNPLAB BLOOD ORDERABLESFinal ResultPerforming OrganizationAddressCity/State/ZIP CodePhone Number [facility] [address] [place] [address], * POCT Hemoglobin A1c (01/15/2025 4:39 PM EST)ComponentValueRef RangeTest Method Analysis TimePerformed AtPathologist SignatureExternal Poct Hgb A1C6.44 - 7 % MANUALLY TRANSCRIBED RESULTSSpecimen (Source)Anatomical Location / Laterality Collection Method / VolumeCollection TimeReceived PzmpYnwac73/06/2025 4:39 PM EST Narrative Authorizing ProviderResult TypeResult Modesta Alejandro Alvarez ELECTRONICS DETAIL DRAFTSPERSON-CNPPOINT OF CARE TEST ORDERABLESFinal ResultPerforming OrganizationAddressCity/State/ZIP Code Phone Number MANUALLY TRANSCRIBED RESULTS documented in this encounter Visit Diagnoses Diagnosis Type 2 diabetes mellitus without complication, without long-term current use of insulin ([facility] Primary Abnormal CBC Other abnormal blood chemistry Mixed hyperlipidemia Essential hypertension Unspecified essential hypertension Class 3 severe obesity due to excess calories with serious comorbidity and body mass index (BMI) of40.0 to 44.9 in adult ([facility]) Irritant contact dermatitis due to other chemical products documented in this encounter Additional Health Concerns AssessmentNoted TimePHQ-9 Depression Total Score: 3:46 PM ESTA Body Mass Index follow-up plan has been documented for the gcxlzil6601/16/2025 1:21 PM ESTdocumented as of this encounter Care Teams Team MemberRelationshipSpecialtyStart DateEnd Date Tank Hinds, GREG-BULLARD OPERATOR [address] [facility] [place] [address] PCP - GeneralInternal Medicine10/06/24documented as of this encounter
--- OUTSIDE RECORDS SUMMARY | 2025-01-20 11:00 | XMS_ITS | Encounter Summary ---
Author Organization [facility] Address [address] [place] [address] Care Team Providers Care Chip Mucker Name Role Phone Unavailable Primary Care Provider Unavailabl e Reason for Visit * ReasonCommentsGynecologic Exam Encounter Details DateTypeDepartmentCare Team (Latest Contact Info)Bdmrsldxizf08/11/2025 11:00 AM ESTOffice Visit [facility] [address] [place] [address] Jayro Jeffers, [address] [place], [place] [id number] Well woman exam with routine gynecological exam; Encounter for screening mammogram for malignant neoplasm of breast Social History Tobacco UseTypesPacks/DayYears UsedDateSmoking Tobacco: Every DayCigarettes Alcohol UseStandard Drinks/WeekCommentsYes0 (1 standard drink = 0.6 oz pure alcohol)Monthly or lessCommentsUnknownSex and Gender InformationValue Date RecordedSex Assigned at XztwfQniixu47/04/2023 8:39 AM EDTLegal SexFemale 05/24/2022 6:35 PM EDTGender UltxocfgNxtdfu75/04/2023 8:39 AM EDTSexual OrientationNot on filedocumented as of this encounter Last Filed Vital Signs Vital SignReadingTime TakenCommentsBlood Ydxrghso575/7201/20/2025 11:01 AM EST Pulse--Temperature--Respiratory Rate--Oxygen Saturation--Inhaled Oxygen Concentration--Fturjs979 kg (222 lb 1.9 oz)01/20/2025 11:01 AM ESTHeight--Body Mass Index40.6311 11:46 AM ESTdocumented in this encounter Plan of Treatment DateTypeDepartmentCare Team (Latest Contact Info)Akfyejeysce86/17/2026 9:00 AM ESTProcedure Visit [facility] [address] [place] [address] Jayro Jeffers, [address] [facility] [address] [place] [address] NameTypePriorityAssociated DiagnosesOrder ScheduleBilateral screening mammogram ImagingRoutine Encounter for screening mammogram for malignant neoplasm of breast Expected: 01/20/2025, Expires: 03/22/2026THIN PREP TIS PAP AND HR HPV DNA Pathology and CytologyRoutine Well woman exam with routine gynecological exam Ordered: 01/20/2025documented as of this encounter Visit Diagnoses Diagnosis Well woman exam with routine gynecological exam Routine gynecological examination Encounter for screening mammogram for malignant neoplasm of breast documented in this encounter
--- OUTSIDE RECORDS SUMMARY | 2025-01-20 18:48 | XMS_ITS | Clinical Summary ---
Author Organization [employer] s tem Address [id number] [address] [place] [address] Care Team Providers Care School Psychologist Name Role Phone Tank Hinds Julio CHIMNEY SWEEPER-HEALTHCARE ASSOCIATE Primary Care Provider + Allergies Active AllergyReactionsCriticalityNoted DateCommentsNaproxen SodiumAnaphylaxis High07/04/2017 Throat swollen shut Nuiqnjfxiw30/12/2024 Other Reaction(s): Redness of Skin Sulfamethoxazole-LlawtgsfjqhkXbkbTpp83/02/2018Iodine And Iodide Containing Phlkpwnh36/31/9073Woizjcdl-Avcagfljovu-NammuomywKghwz (See Comments)07/04/2017 Very red, inflammed Rpvahq9902/12/2021 Other reaction(s): shellfish Sulfa (Sulfonamide Antibiotics)02/12/2021 Other reaction(s): Unknown Bupropion Hcl07/04/2023 Headache Medications MedicationSigDispense QuantityRefillsLast FilledStart DateEnd DateStatus UNABLE TO FIND Take by mouth in the morning. Med Name: EYE PROMISE RESTORE .Active calcium carbonate-vitamin D3 500 mg-10 mcg (400 unit) tablet Take 1 tablet by mouth in the morning.Active ibuprofen 200 mg capsule 04/30/2023ctive cinnamon bark 500 mg capsule 08/22/2023ctive turmeric 400 mg capsule Active acetaminophen (TYLENOL EXTRA STRENGTH) 500 mg tablet 09/19/2023ctive rosuvastatin (CRESTOR) 20 mg tablet Indications:Mixed hyperlipidemiaTake 1 tablet (20 mg total) by mouth in the morning. 30 tablet 1105Active lisinopriL (PRINIVIL,ZESTRIL) 30 mg tablet Indications:Essential hypertensionTake 1 tablet (30 mg total) by mouth in the morning. 30 tablet 5Active amLODIPine (NORVASC) 5 mg tablet Indications:Essential hypertensionTAKE 1 TABLET (5 MG TOTAL) BY MOUTH IN THE MORNING AND 1 TABLET (5 MG TOTAL) BEFORE BEDTIME. 60 tablet 1115Active cholecalciferol, vitamin D3, 5,000 units tablet Take 2 tablets (10,000 Units total) by mouth in the morning.Active semaglutide (OZEMPIC) 0.25 mg or 0.5 mg(2 mg/1.5 mL) pen injector Indications:type 2 diabetes mellitusInject 0.25 mg under the skin every 7 days Indications: type 2 diabetes mellitus. 4.5 mL 5Active triamcinolone (KENALOG) 0.1 % cream Apply 1 Application topically in the morning and 1 Application before bedtime. 30 g 5Active amLODIPine (NORVASC) 5 mg tablet Indications:Essential hypertensionTake 1 tablet (5 mg total) by mouth in the morning and 1 tablet (5 mg total) before bedtime. 180 tablet Discontinued phentermine (ADIPEX-P) 37.5 mg tablet Indications:Morbid obesity with BMI of 40.0-44.9, adult ([facility])Take 1 tablet (37.5 mg total) by mouth every morning before breakfast. 30 tablet Discontinued(Therapy completed) Active Problems ProblemNoted DateDiagnosed DateHip quarwneon58/24/5981Gjoamwlndb64/24/2024Other chronic pain4Primary osteoarthritis of left hip11/08/2020moking hilamskup04/24/2020Blood tests for routine general physical examination 06/17/2018Chronic left hip pain06/17/2018Chronic pain of left knee06/17/2018Low back pain, non-fffmkrqy63/08/2019Cigarette nicotine dependence with nicotine- induced eauwwybc94/04/2018Essential irvxfynnjpvq63/02/2018Metabolic syndrome 10/07/2017Mixed puvncnvlnyxbxi22/29/2018Pre-fhqfyozq90/26/2018Annual physical exam09/04/2017 Encounters DateTypeDepartmentCare UmgpVqbsprrkiss02/08/2025Results Follow-Up [facility] [address] [place] [address] Tank Hinds APRN-CNP POCT Hemoglobin A1c, CBC auto differential, Microalbumin - Albumin: Creatinine Urine Ratio, Additional followed-up results: 3:40 PM ESTOffice Visit [facility] [address] [place] [address] Nicolasa Pino APRN-ENID Type 2 diabetes mellitus without complication, without long-term current use of insulin ([facility]) (Primary Dx); Abnormal CBC; Mixed hyperlipidemia; Essential hypertension; Class 3 severe obesity due to excess calories with serious comorbidity and body mass index (BMI) of40.0 to 44.9 in adult ([facility]); Irritant contact dermatitis due to other chemical ougjmwiq79/06/2025Travel 01/01/2025Refill [facility] [address] [place] [address] Nicolasa Pino APRN-CNP Essential hypertensionfrom Last 3 Months Immunizations No known immunizations Family History Medical HistoryRelationNameCommentsDiabetesBrother 2Heart diseaseFatherDiabetes MotherKidney diseaseMotherRelationNameStatusCommentsBrother 1AliveBrother 2 (Age 49)FatherDeceased (Age 66)MotherDeceased (Age 75)SisterAlive Social History Tobacco UseTypesPacks/DayYears UsedDateSmoking Tobacco: FormerCigarettes0.630 Smokeless Tobacco: Never Tobacco Cessation:Counseling Given: Not Answered Alcohol UseStandard Drinks/WeekCommentsYes0 (1 standard drink = 0.6 oz pure alcohol)RARELYPHQ-2AnswerDate RecordedTotal Mzcia615/06/2025ChildcareAnswerDate WfgejqhnSwmypnanuFumvuih32/06/2019EmploymentAnswerDate RecordedEmploymentUnknown 08/15/2018Hunger ScreeningAnswerDate RecordedWithin the past 12 months we worried whether our food would run out before we got money to buy more.Never True01/15/2025Within the past 12 months the food we bought just didn't last and we didn't have money to get more.Never True01/15/2025Purpose - LifeAnswerDate RecordedPurpose and direction in vuwzXopbogz05/11/2021CommentsNoSex and Gender InformationValueDate RecordedSex Assigned at BirthNot on fileLegal Sex Kewzcd2210/15/2014 11:37 AM EDTGender IdentityNot on fileSexual OrientationNot on file Last Filed Vital Signs Vital SignReadingTime TakenCommentsBlood Tkcsynve182/6001/15/2025 3:46 PM EST Tjlyx291101/15/2025 3:46 PM LWLVgldrucgmis05.1 ??C (98.7 ??F)01/15/2025 3:46 PM ESTRespiratory Chfi390103/17/2024 3:46 PM ESTOxygen Tkdbcbzayd48%01/15/2025 3:46 PM ESTInhaled Oxygen Concentration--Bvwezk273.5 kg (221 lb 9.6 oz)01/15/2025 3:46 PM UJLJvguii022.4 cm (5' 1.95 )01/15/2025 3:46 PM ESTBody Mass Index40.6 01/15/2025 3:46 PM EST Plan of Treatment DateTypeDepartmentCare Team (Latest Contact Info)Iqlgrnpfbmg51/19/2025 11:40 AM ESTOffice Visit [facility] [address] [place] [address] Nicolasa Pino, CHIMNEY SWEEPER-HEALTHCARE ASSOCIATE [address] [place] [address] Health MaintenanceDue DateLast DoneCommentsStatin Use: Uhnjtshh08/17/2026 04/28/2024Diabetic Ophthalmology Exam01/13/2026Postponed from 1966 (Not Indicated)Adult BMI Follow Up [facility] BMI Screening DTaP,Tdap and Td Vaccines (1 - Tdap)01/15/2026Postponed from 1985 (Patient Refused)Depression Jvngelwid08Diabetic Foot Exam, 01/15/20256710Eciexuyof10, 12/12/2022, 11/24/2022, Additional history existsPostponed from 11/25/2024 (Patient Refused)Tobacco Lykhiipoc16Zoster (Shingles) Vaccine (1 of 2)01/15/2026Postponed from 2016 (Patient Refused)Pap Smear01/13/2027 01/14/2024, 11/08/20201040Lkjkrhacumg06Influenza Vaccine Discontinued Medical Devices Not on file Procedures Procedure NamePriorityDate/TimeAssociated DiagnosisCommentsTSH WITH REFLEX Prxzrfd7401/15/2025 4:51 PM EST Type 2 diabetes mellitus without complication, without long-term current use of insulin ([facility]) COMPREHENSIVE METABOLIC OEKKPKsqfivj15/06/2025 4:51 PM EST Type 2 diabetes mellitus without complication, without long-term current use of insulin ([facility]) LIPID YVWZPWAYetuyde35/06/2025 4:51 PM EST Mixed hyperlipidemia MICROALBUMIN / CREATININE URINE FQVKBCakidun60/06/2025 4:51 PM EST Type 2 diabetes mellitus without complication, without long-term current use of insulin ([facility]) CBC WITH AUTO XEDZWQFFTAGIDjulrsq29/06/2025 4:51 PM EST Abnormal CBC POCT HEMOGLOBIN T8ZTnogird87/06/2025 4:39 PM EST Type 2 diabetes mellitus without complication, without long-term current use of insulin ([facility]) HM HJDRWLVKAIIRncadhy45/16/2024 8:14 AM EDT from Last 3 Months or Most Recently Relevant to Health Maintenance Results * TSH with Reflex (01/15/2025 4:51 PM EST)ComponentValueRef RangeTest Method Analysis TimePerformed AtPathologist SignatureTSH0.500.49 - 4.67 uIU/mL 01/15/2025 10:53 PM [facility] LABORATORYSpecimen (Source) Anatomical Location / LateralityCollection Method / VolumeCollection Time Received TimeBloodVenous blood / Rrsbxec4301/15/2025 4:51 PM EST01/15/2025 4:51 PM EST Narrative Authorizing ProviderResult TypeResult StatusNicolasa Javon Pino CHIMNEY SWEEPER-CNPLAB BLOOD ORDERABLESFinal ResultPerforming OrganizationAddressCity/State/ZIP CodePhone Number [facility] [address] [place] [address], * CBC auto differential (01/15/2025 4:51 PM EST)ComponentValueRef RangeTest MethodAnalysis TimePerformed AtPathologist OsfwxxfnrLUJ33.04 - 11 X10^9/L 01/15/2025 10:32 PM [facility] LABORATORYRBC Count5.023.8 - 5.2 X10^12/L103/17/2024 10:32 PM [facility] Mdpkqcbujc40.011.7 - 15.5 g/dL01/15/2025 10:32 PM [facility] VCYJOJCPJYDzurlbhqkg55.235 - 47 %01/15/2025 10:32 PM [facility] IPYIIDMMCNIQC2944 - 100 fL01/15/2025 10:32 PM [facility] UGSZDNWAKFHAI54.927 - 34 pg01/15/2025 10:32 PM [facility] FGOPOAJDZNEEPH55.232 - 36 g/dL01/15/2025 10:32 PM [facility] NLGWQZRKXIYGE01.011.5 - 15 %01/15/2025 10:32 PM [facility] LABORATORYPlatelet Trpxu368391 - 450 X10^9/L103/17/2024 10:32 PM EST [facility] LABORATORYMPV8.67 - 12 fL01/15/2025 10:32 PM [facility] LABORATORYNeutrophils %61.1%01/15/2025 10:32 PM [facility] LABOR[facility]ORYLymphocytes %26.8%01/15/2025 10:32 PM [facility] LABOR[facility]ORYMonocytes %8.2%01/15/2025 10:32 PM [facility] LABOR[facility]ORYEosinophils %3.0%01/15/2025 10:32 PM [facility] LABORATORYBasophils %0.9%01/15/2025 10:32 PM [facility] LABORATORYNeutrophils Absolute (A)6.11.5 - 6.6 X10^9/L103/17/2024 10:32 PM [facility] LABORATORYLymphocytes Absolute2.71.0 - 3.5 X10^9/L103/17/2024 10:32 PM [facility]OR[facility]ORYMonocytes Absolute0.80.0 - 0.9 X10^9/L103/17/2024 10:32 PM [facility] LABORATORYEosinophils Absolute0.30.0 - 0.4 X10^9/L103/17/2024 10:32 PM [facility] LABOR[facility]ORYBasophils Absolute0.10.0 - 0.2 X10^9/L103/17/2024 10:32 PM [facility] LABORATORYDifferential TypeAUTOMATED OEJDVVJVYCNA20/06/2025 10:32 PM [facility] LABORATORYSpecimen (Source)Anatomical Location / LateralityCollection Method / VolumeCollection TimeReceived TimeBloodVenous blood / Ttswpab5801/15/2025 4:51 PM EST01/15/2025 4:51 PM EST Narrative Authorizing ProviderResult TypeResult StatusNicolasa Pino CHIMNEY SWEEPER-CNPLAB BLOOD ORDERABLESFinal ResultPerforming OrganizationAddressCity/State/ZIP CodePhone Number [facility] [address] [place] [phone], * Microalbumin - Albumin: Creatinine Urine Ratio (01/15/2025 4:51 PM EST) ComponentValueRef RangeTest MethodAnalysis TimePerformed AtPathologist SignatureURINE CREATININE,RDM82.47mg/dL01/15/2025 10:45 PM [facility] LABORATORYMALB/CREAT RATIO01/15/2025 10:45 PM [facility] LABORATORYComment:Urine Microalbumin / Creatinine ratio not calculated due to non-numeric component.MICROALBUMIN, URINE<0.70.0 - 1.9 mg/dL01/15/2025 10:45 PM [facility] LABORATORYSpecimen (Source)Anatomical Location / LateralityCollection Method / VolumeCollection TimeReceived Time UrineUrine specimen collection, clean catch / Tlzondf8001/15/2025 4:51 PM EST 01/15/2025 4:51 PM EST Narrative Authorizing ProviderResult TypeResult StatusNicolasa Pino CHIMNEY SWEEPER-CNPURINE ORDERABLESFinal ResultPerforming OrganizationAddressCity/State/ZIP CodePhone Number [facility] [address] [place] [phone], * (ABNORMAL) Lipid profile (01/15/2025 4:51 PM EST)ComponentValueRef RangeTest MethodAnalysis TimePerformed AtPathologist GtpgiglopJMDZXYDKCCF227(L)150 - 200 mg/dL01/15/2025 10:47 PM [facility] MXWLDBTMFYBOACBPIZNXZA750 (H)27 - 150 mg/dL01/15/2025 10:47 PM [facility] LABORATORYHDL IOZXBNLDORY39>39 mg/dL01/15/2025 10:47 PM [facility] LABORATORYComment: HDL <40 mg/dL - High Risk HDL > or = 40mg/dL- Desirable HDL >60 mg/dL - Negative Risk LDL (CALC)66<130 mg/dL01/15/2025 10:47 PM [facility] Comment: LDL <100 mg/dL - Desirable LDL >160 mg/dL - High Risk CHOLESTEROL:HDL3.31.0 - 5.011 10:47 PM [facility] LABORATORYVERY LOW VNOJMBPYSSE60(H)0 - 30 mg/dL01/15/2025 10:47 PM [facility] LABORATORYSpecimen (Source)Anatomical Location / Laterality Collection Method / VolumeCollection TimeReceived TimeBloodVenous blood / Vqzexia6301/15/2025 4:51 PM EST01/15/2025 4:51 PM EST Narrative Authorizing ProviderResult TypeResult StatusNicolasa Pino CHIMNEY SWEEPER-CNPLAB BLOOD ORDERABLESFinal ResultPerforming OrganizationAddressCity/State/ZIP CodePhone Number [facility] [address] [place] [address], * (ABNORMAL) Comprehensive metabolic panel (01/15/2025 4:51 PM EST)Component ValueRef RangeTest MethodAnalysis TimePerformed AtPathologist SignatureSODIUM 734172 - 146 mmol/L103/17/2024 10:47 PM [facility] POTASSIUM4.13.5 - 5.0 mmol/L103/17/2024 10:47 PM [facility] HADOMNHXOTEGOIYORU92368 - 109 mmol/L103/17/2024 10:47 PM [facility] LABORATORYCARBON DZIKHLN5462 - 32 mmol/L103/17/2024 10:47 PM [facility] LABORATORYANION AYW450 - 15 mmol/L103/17/2024 10:47 PM [facility] LABORATORYBLOOD UREA FWDZYJMQ197 - 23 mg/dL01/15/2025 10:47 PM [facility] LABORATORYCREATININE0.680.40 - 1.00 mg/dL 01/15/2025 10:47 PM [facility] LABORATORYComment:METHOD TRACEABLE TO IDMS DTLLBIABHMGZVRM774(H)65 - 99 mg/dL01/15/2025 10:47 PM [facility] LABORATORYCALCIUM9.28.5 - 10.5 mg/dL01/15/2025 10:47 PM [facility] LABORATORYTOTAL PROTEIN7.46.0 - 8.0 g/dL 01/15/2025 10:47 PM [facility] LABORATORYALBUMIN4.43.2 - 5.3 g/dL01/15/2025 10:47 PM [facility] LABORATORYALKALINE VEXRHAEWJVP6229 - 130 U/L103/17/2024 10:47 PM [facility] RIQWGQVTZIIRI24<=41 U/L103/17/2024 10:47 PM [facility] EICXUCBTAXQPR52<=31 U/L103/17/2024 10:47 PM [facility] LABORATORYBILIRUBIN,TOTAL0.40.3 - 1.2 mg/dL01/15/2025 10:47 PM [facility] LABOR[facility]ORYEGFR Non-Race Dependent>90>=60 ml/min/1.73sq.m 01/15/2025 10:47 PM [facility] LABORATORYComment: Reported eGFR is based on the CKD-EPI 2020 equation that does not use a race coefficient. Specimen (Source)Anatomical Location / LateralityCollection Method / Volume Collection TimeReceived TimeBloodVenous blood / Vtbivkh0401/15/2025 4:51 PM EST 01/15/2025 4:51 PM EST Narrative Authorizing ProviderResult TypeResult StatusNicolasa Pino APRN-CNPLAB BLOOD ORDERABLESFinal ResultPerforming OrganizationAddressCity/State/ZIP CodePhone Number [facility] [address] [place] [address], * POCT Hemoglobin A1c (01/15/2025 4:39 PM EST)ComponentValueRef RangeTest Method Analysis TimePerformed AtPathologist SignatureExternal Poct Hgb A1C6.44 - 7 % MANUALLY TRANSCRIBED RESULTSSpecimen (Source)Anatomical Location / Laterality Collection Method / VolumeCollection TimeReceived SpplRdsxw86/06/2025 4:39 PM EST Narrative Authorizing ProviderResult TypeResult StatusNicolasa iPno CHIMNEY SWEEPER-CNPBRANDON OF CARE TEST ORDERABLESFinal ResultPerforming OrganizationAddressCity/State/ZIP Code Phone Number MANUALLY TRANSCRIBED RESULTS * HM MAMMOGRAPHY (11/26/2023 8:14 AM EDT)Anatomical RegionLateralityModality Other Narrative Authorizing ProviderResult TypeResult StatusNot In System Ref ProvHEALTH MAINTENANCEFinal Result from Last 3 Months or Most Recently Relevant to Health Maintenance Insurance Care Teams Team MemberRelationshipSpecialtyStart DateEnd Date Tank Hinds, CHIMNEY SWEEPER-HEALTHCARE ASSOCIATE [address] [place] [address] PCP - GeneralInternal Medicine10/06/24
--- OUTSIDE RECORDS SUMMARY | 2025-01-20 18:48 | XMS_ITS | Clinical Summary ---
Author Organization [facility] Address [address] [place] [address] Care Team Providers Care Supervisory Training Specialist Name Role Phone Unavailable Primary Care Provider Unavailabl e Allergies Active AllergyReactionsCriticalityNoted DateCommentsBacitracin-Polymyxin B Oudithw2712/22/20205740AnipioAysdelp29/13/2021NaproxenAnaphylaxis,UnknownHigh 07/04/2017 Throat swollen shut Shrimp Wowuahf1502/12/2021 Other reaction(s): shellfish Sulfa FycbwgkaezdOuqlxat28/13/2021 Other reaction(s): Unknown Sulfamethoxazole-YwjsryvfdiepBbpePvw07/02/2018 Medications MedicationSigDispense QuantityRefillsLast FilledStart DateEnd DateStatus lisinopril 30 MG tablet Take 30 mg by mouth in the morning.Active rosuvastatin (Crestor) 20 MG tablet Take 20 mg by mouth in the morning.Active Calcium Carb-Cholecalciferol (CALCIUM + D3 PO) Calcium + S2Jgcuot Turmeric 400 MG capsule TurmericActive Encounters DateTypeDepartmentCare RjsgJxmtqlgcsfi14/11/2025 11:00 AM ESTOffice Visit [facility] [address] [address] Jayro Jeffers DO Well woman exam with routine gynecological exam; Encounter for screening mammogram for malignant neoplasm of cvlofe5401/20/2025 Bamboo flowsheet [facility] [address] [place] [address] Jayro Jeffers DO from Last 3 Months Family History Medical HistoryRelationNameCommentsStrokeFatherDiabetesMotherRelationNameStatus CommentsFatherDeceasedMaternal GrandfatherDeceasedMaternal GrandmotherDeceased MotherDeceasedPaternal GrandfatherDeceasedPaternal GrandmotherDeceased Social History Tobacco UseTypesPacks/DayYears UsedDateSmoking Tobacco: Every DayCigarettes Tobacco Cessation:Ready to Q uit: Not Asked; Counseling Given: Not Answered Alcohol UseStandard Drinks/WeekCommentsYes0 (1 standard drink = 0.6 oz pure alcohol)Monthly or lessCommentsUnknownSex and Gender InformationValue Date RecordedSex Assigned at AdpqgOopndd33/04/2023 8:39 AM EDTLegal SexFemale 05/24/2022 6:35 PM EDTGender CzdjsulqLtlkat44/04/2023 8:39 AM EDTSexual OrientationNot on file Last Filed Vital Signs Vital SignReadingTime TakenCommentsBlood Raijsplt442/7201/20/2025 11:01 AM EST Pulse--Temperature--Respiratory Rate--Oxygen Saturation--Inhaled Oxygen Concentration--Mqcamg309 kg (222 lb 1.9 oz)01/20/2025 11:01 AM HEVQkxaua165.5 cm (5' 2 )01/14/2024 11:46 AM ESTBody Mass Index40.6301/14/2024 11:46 AM EST Plan of Treatment DateTypeDepartmentCare Team (Latest Contact Info)Oilzpkviwid82/17/2026 9:00 AM ESTProcedure Visit [facility] [address] [place] [address] Jayro Jeffers DO [address] [place] [address] Insurance
--- OUTSIDE RECORDS SUMMARY | 2025-01-20 18:48 | XMS_ITS | Encounter Summary ---
Author Organization [facility] GetAFive s tem Address [id number] [address] [place] [address] Care Team Providers Care Accounting Machine Mechanic Name Role Phone Tank Hinds SUGGESTION CLERK-POOL HAND Primary Care Provider + Encounter Details DateTypeDepartmentCare Team (Latest Contact Info)Cniqncjvbkv04/06/2025Travel Social History Tobacco UseTypesPacks/DayYears UsedDateSmoking Tobacco: FormerCigarettes0.630 Smokeless Tobacco: NeverAlcohol UseStandard Drinks/WeekCommentsYes0 (1 standard drink = 0.6 oz pure alcohol)RARELYPHQ-2AnswerDate RecordedTotal Hidqh89803/17/2024 ChildcareAnswerDate QbbviwcjMcyjaueoyTggqcqk46/06/2019EmploymentAnswerDate MwqllozqTbaubscrfiAjfcxzw73/06/2019Hunger ScreeningAnswerDate RecordedWithin the past 12 months we worried whether our food would run out before we got money to buy more.Never True01/15/2025Within the past 12 months the food we bought just didn't last and we didn't have money to get more.Never True01/15/2025Purpose - LifeAnswerDate RecordedPurpose and direction in lohuRzxjpcc68/11/2021 CommentsNoSex and Gender InformationValueDate RecordedSex Assigned at BirthNot on fileLegal CnqThbkux18/06/2015 11:37 AM EDTGender IdentityNot on fileSexual OrientationNot on filedocumented as of this encounter Plan of Treatment DateTypeDepartmentCare Team (Latest Contact Info)Cnkxhzzapgk03/19/2025 11:40 AM ESTOffice Visit [facility] [address] [place] [address] Nicolasa Pino APRN-ENID [address] [place] [address] documented as of this encounter Visit Diagnoses Not on filedocumented in this encounter Additional Health Concerns AssessmentNoted TimePHQ-9 Depression Total Score: 3:46 PM ESTA Body Mass Index follow-up plan has been documented for the dgcvrei4101/16/2025 1:21 PM ESTdocumented as of this encounter Care Teams Team MemberRelationshipSpecialtyStart DateEnd Date Tank Hinds, GREG-ENID [address] [place] [address] PCP - GeneralInternal Medicine10/06/24documented as of this encounter
--- OUTSIDE RECORDS SUMMARY | 2025-01-20 18:48 | XMS_ITS | Encounter Summary ---
Author Organization [facility] [employer] [facility] tem Address [id number] [address] [place] [address] Care Team Providers Care Groundman Name Role Phone Tank Hinds VISION REHABILITATION THERAPIST-BUTTON BREAKER Primary Care Provider + Encounter Details DateTypeDepartmentCare Team (Latest Contact Info)Ejfzgzcxhml24/08/2025Results Follow-Up [facility] Internal [facility] - Family Medicine [address] [place] [address] Tank Hinds, VISION REHABILITATION THERAPISTBUTTON BREAKER [address] [place] [address] [place] [address] POCT Hemoglobin A1c, CBC auto differential, Microalbumin - Albumin: Creatinine Urine Ratio, Additional followed-up results: 3 Social History Tobacco UseTypesPacks/DayYears UsedDateSmoking Tobacco: FormerCigarettes0.630 Smokeless Tobacco: NeverAlcohol UseStandard Drinks/WeekCommentsYes0 (1 standard drink = 0.6 oz pure alcohol)RARELYPHQ-2AnswerDate RecordedTotal Ygflh77903/17/2024 ChildcareAnswerDate KuloklwsSbzrqvzfzReqtbkq19/06/2019EmploymentAnswerDate HubcxpvnCoonmjngfeEumzeqz76/06/2019Hunger ScreeningAnswerDate RecordedWithin the past 12 months we worried whether our food would run out before we got money to buy more.Never True01/15/2025Within the past 12 months the food we bought just didn't last and we didn't have money to get more.Never True01/15/2025Purpose - LifeAnswerDate RecordedPurpose and direction in emltYnwnvpb85/11/2021 CommentsNoSex and Gender InformationValueDate RecordedSex Assigned at BirthNot on fileLegal HssKefxrj27/06/2015 11:37 AM EDTGender IdentityNot on fileSexual OrientationNot on filedocumented as of this encounter Plan of Treatment DateTypeDepartmentCare Team (Latest Contact Info)Yudfawzrhqd63/19/2025 11:40 AM ESTOffice Visit [facility] [address] [place] [address] Nicolasa Pino, VISION REHABILITATION THERAPIST-BUTTON BREAKER [address] [place] [place] [address] documented as of this encounter Visit Diagnoses Not on filedocumented in this encounter Additional Health Concerns AssessmentNoted TimePHQ-9 Depression Total Score: 3:46 PM ESTA Body Mass Index follow-up plan has been documented for the yzxdynx4201/16/2025 1:21 PM ESTdocumented as of this encounter Care Teams Team MemberRelationshipSpecialtyStart DateEnd Date Tank Hinds, VISION REHABILITATION THERAPIST-BUTTON BREAKER [address] [place] [address] PCP - GeneralInternal Medicine10/06/24documented as of this encounter
--- OUTSIDE RECORDS SUMMARY | 2025-01-20 18:48 | XMS_ITS | Encounter Summary ---
Author Organization [facility] Address [address] [place] [address] Care Team Providers Care Chip Loft Worker Name Role Phone Unavailable Primary Care Provider Unavailabl e Encounter Details DateTypeDepartmentCare Team (Latest Contact Info)Wezjsobanxd29/11/2025amboo flowsheet NOMDeepthi BURGOS [address] [place] [address] Jayro Jeffers DO [address], [facility] Social History Tobacco UseTypesPacks/DayYears UsedDateSmoking Tobacco: Every DayCigarettes Alcohol UseStandard Drinks/WeekCommentsYes0 (1 standard drink = 0.6 oz pure alcohol)Monthly or lessCommentsUnknownSex and Gender InformationValue Date RecordedSex Assigned at PrbmwWhkjng97/04/2023 8:39 AM EDTLegal SexFemale 05/24/2022 6:35 PM EDTGender RivnqvgkIidzcn04/04/2023 8:39 AM EDTSexual OrientationNot on filedocumented as of this encounter Plan of Treatment DateTypeDepartmentCare Team (Latest Contact Info)Fjmoovpflgr25/17/2026 9:00 AM ESTProcedure Visit NOMDeepthi BURGOS [address] [place] [address] Jayro Jeffers, DO [address], [place] [address] documented as of this encounter Visit Diagnoses Not on filedocumented in this encounter
== END 2025-01-20 18:44 | disposition home or self-care (01) ==
LOC: LAB 18:43
PROVIDERS: PCP Nurse Practitioner; Visit Provider Obstetrics & Gynecology
DX: Z01.419 Encounter for gynecological examination (general) (routine) without abnormal findings (principal)
CPT/HCPCS: 87624; 88175

== ENCOUNTER 2025-02-09 07:44 | Outpatient (OUT) | payer OTHER, SELFPAY ==
--- OUTSIDE RECORDS SUMMARY | 2025-02-09 07:45 | XMS_ITS | Clinical Summary ---
Author Organization [facility] tem Address [id number] [address] [place] [address] Care Team Providers Care Ssn/Ssbn Weapons Equipment Operator Name Role Phone Tank Hinds Julio TAG WRITER-MARKSMANSHIP INSTRUCTOR Primary Care Provider + Allergies Active AllergyReactionsCriticalityNoted DateCommentsNaproxen SodiumAnaphylaxis High07/04/2017 Throat swollen shut Mjloqhzrlk98/12/2024 Other Reaction(s): Redness of Skin Sulfamethoxazole-YfsvikecklsdNaijWtx42/02/2018Iodine And Iodide Containing Nnwzgcfd67/31/1955Gqdgtirj-Nmqlvlkfups-QjeocbmuhWwkze (See Comments)07/04/2017 Very red, inflammed Undbsb4902/12/2021 Other reaction(s): shellfish Sulfa (Sulfonamide Antibiotics)02/12/2021 Other [...] (5 MG TOTAL) BEFORE BEDTIME. 60 tablet 5Active cholecalciferol, vitamin D3, 5,000 units tablet Take [...] 1 Application before bedtime. 30 g 5Active phentermine (ADIPEX-P) 37.5 mg tablet Indications:Morbid obesity with BMI of 40.0-44.9, adult ([facility])Take 1 tablet (37.5 mg total) by mouth every morning before breakfast. 30 tablet Discontinued(Therapy completed) Active Problems ProblemNoted DateDiagnosed DateHip hygsdheba07/24/9925Ycehgmegzr08/24/2024Other chronic pain4Primary osteoarthritis of left hip11/08/2020moking cggrdzxje88/24/2020Blood tests for routine general physical examination 06/17/2018Chronic left hip pain06/17/2018Chronic pain of left knee06/17/2018Low back pain, non-tiqjiscu71/08/2019Cigarette nicotine dependence with nicotine- induced hryeurvt46/04/2018Essential kudviboubgqo29/02/2018Metabolic syndrome 10/07/2017Mixed wacvzciyxunvkd54/29/2018Pre-vuvkkyem51/26/2018Annual physical exam09/04/2017 Encounters DateTypeDepartmentCare VfloUxxypoztiml87/08/2025Results Follow-Up [facility] - Family Medicine [address] [place] [address] Tank Hinds, TAG WRITER-MARKSMANSHIP INSTRUCTOR POCT Hemoglobin A1c, CBC auto differential, Microalbumin - Albumin: Creatinine Urine Ratio, Additional followed-up results: 3:40 PM ESTOffice Visit [facility] [address] [place] [address] Nicolasa Pino APRN-CNP Type 2 diabetes mellitus without complication, without long-term current use of insulin ([facility] (Primary Dx); Abnormal CBC; Mixed hyperlipidemia; Essential hypertension; Class 3 severe obesity due to excess calories with serious comorbidity and body mass index (BMI) of40.0 to 44.9 in adult ([facility] Irritant contact dermatitis due to other chemical shvotnel43/06/2025Travel 01/01/2025Refill [facility] - Family [facility] [address] [place] [address] Nicolasa Pino APRN-CNP Essential hypertensionfrom Last 3 Months Immunizations No known immunizations Family History Medical HistoryRelationNameCommentsDiabetesBrother 2Heart diseaseFatherDiabetes MotherKidney diseaseMotherRelationNameStatusCommentsBrother 1AliveBrother 2 (Age 49)FatherDeceased (Age 66)MotherDeceased (Age 75)SisterAlive Social History Tobacco UseTypesPacks/DayYears UsedDateSmoking Tobacco: FormerCigarettes0.630 Smokeless Tobacco: Never Tobacco Cessation:Counseling Given: Not Answered Alcohol UseStandard Drinks/WeekCommentsYes0 (1 standard drink = 0.6 oz pure alcohol)RARELYPHQ-2AnswerDate RecordedTotal Cjgpw249/06/2025ChildcareAnswerDate HdicvhloJtfrbsdymDwbpsqd17/06/2019EmploymentAnswerDate RecordedEmploymentUnknown 08/15/2018Hunger ScreeningAnswerDate RecordedWithin the past 12 months we worried whether our food would run out before we got money to buy more.Never True01/15/2025Within the past 12 months the food we bought just didn't last and we didn't have money to get more.Never True01/15/2025Purpose - LifeAnswerDate RecordedPurpose and direction in yhffSwtepup02/11/2021CommentsNoSex and Gender InformationValueDate RecordedSex Assigned at BirthNot on fileLegal Sex Knwdaw4510/15/2014 11:37 AM EDTGender IdentityNot on fileSexual OrientationNot on file Last Filed Vital Signs Vital SignReadingTime TakenCommentsBlood Amitcdyb125/6001/15/2025 3:46 PM EST Dlade388501/15/2025 3:46 PM YMHXlxpdryfwki80.1 ??C (98.7 ??F)01/15/2025 3:46 PM ESTRespiratory Msti5147 3:46 PM ESTOxygen Pytseqyivc52%01/15/2025 3:46 PM ESTInhaled Oxygen Concentration--Mhrljs378.5 kg (221 lb 9.6 oz)01/15/2025 3:46 PM EMKGxjfpl598.4 cm (5' 1.95 )01/15/2025 3:46 PM ESTBody Mass Index40.6 01/15/2025 3:46 PM EST Plan of Treatment Health MaintenanceDue DateLast DoneCommentsStatin Use: Muorzdic04/17/2026 04/28/2024Diabetic Ophthalmology Exam01/13/2026Postponed from 1966 (Not Indicated)Adult BMI Follow Up [place] BMI Screening DTaP,Tdap and Td Vaccines (1 - Tdap)01/15/2026Postponed from 1985 (Patient Refused)Depression Hhckgubav38Diabetic Foot Exam, 01/15/20251207Dnzmzpyrj69/06/202609/, 12/12/2022, 11/24/2022, Additional history existsPostponed from 11/25/2024 (Patient Refused)Tobacco Uydiwyzwh11Zoster (Shingles) Vaccine (1 of 2)01/15/2026Postponed from 2016 (Patient Refused)Pap Smear01/13/2027 01/14/2024, 2661Gfgpkzpjwuz79Influenza Vaccine Discontinued Medical Devices Not on file Procedures Procedure NamePriorityDate/TimeAssociated DiagnosisCommentsTSH WITH REFLEX Enawome0901/15/2025 4:51 PM EST Type 2 diabetes mellitus without complication, without long-term current use of insulin ([facility]) COMPREHENSIVE METABOLIC NCVZCGxtqwrs56/06/2025 4:51 PM EST Type 2 diabetes mellitus without complication, without long-term current use of insulin ([facility]) LIPID HUPPMMCLokveos67/06/2025 4:51 PM EST Mixed hyperlipidemia MICROALBUMIN / CREATININE URINE HHYVFOlsuoat38/06/2025 4:51 PM EST Type 2 diabetes mellitus without complication, without long-term current use of insulin ([facility]) CBC WITH AUTO WIBXUAEKXWAMRgeeree89/06/2025 4:51 PM EST Abnormal CBC POCT HEMOGLOBIN L1VYsgaspq98/06/2025 4:39 PM EST Type 2 diabetes mellitus without complication, without long-term current use of insulin [place] HM KOHLUPSLJSUSrutetc19/16/2024 8:14 AM EDT from Last 3 Months or Most Recently Relevant to Health Maintenance Results * TSH with Reflex (01/15/2025 4:51 PM EST)ComponentValueRef RangeTest Method Analysis TimePerformed AtPathologist SignatureTSH0.500.49 - 4.67 uIU/mL 01/15/2025 10:53 PM [facility] LABORATORYSpecimen (Source) Anatomical Location / LateralityCollection Method / VolumeCollection Time Received TimeBloodVenous blood / Pduzxrw6101/15/2025 4:51 PM EST01/15/2025 4:51 PM EST Narrative Authorizing ProviderResult TypeResult StatusBrrell Pino TAG WRITER-CNPLAB BLOOD ORDERABLESFinal ResultPerforming OrganizationAddressCity/State/ZIP CodePhone Number [facility] [address] [place] [address], * CBC auto differential (01/15/2025 4:51 PM EST)ComponentValueRef RangeTest MethodAnalysis TimePerformed AtPathologist EqfgugfyoSVA28.04 - 11 X10^9/L 01/15/2025 10:32 PM [facility] LABORATORYRBC Count5.023.8 - 5.2 X10^12/L103/17/2024 10:32 PM [facility] Jvklysbfey84.011.7 - 15.5 g/dL01/15/2025 10:32 PM [facility] TMJRBKUPMCYkjksaldqr99.235 - 47 %01/15/2025 10:32 PM [facility] WMPUXYQVISUCO5800 - 100 fL01/15/2025 10:32 PM [facility] XPPSNDWVJKOJX57.927 - 34 pg01/15/2025 10:32 PM [facility] QGTORAKUQTXFLS62.232 - 36 g/dL01/15/2025 10:32 PM [facility] DWZDJREUTFDAC24.011.5 - 15 %01/15/2025 10:32 PM [facility] LABORATORYPlatelet Zwbtr512822 - 450 X10^9/L103/17/2024 10:32 PM [facility] LABORATORYMPV8.67 - 12 fL01/15/2025 10:32 PM [facility] LABORATORYNeutrophils %61.1%01/15/2025 10:32 PM [facility] LABORATORYLymphocytes %26.8%01/15/2025 10:32 PM [facility] LABORATORYMonocytes %8.2%01/15/2025 10:32 PM [facility] LABORATORYEosinophils %3.0%01/15/2025 10:32 PM [facility] LABORATORYBasophils %0.9%01/15/2025 10:32 PM [facility] LABORATORYNeutrophils Absolute (A)6.11.5 - 6.6 X10^9/L103/17/2024 10:32 PM [facility] LABORATORYLymphocytes Absolute2.71.0 - 3.5 X10^9/L103/17/2024 10:32 PM [facility] LABORATORYMonocytes Absolute0.80.0 - 0.9 X10^9/L103/17/2024 10:32 PM [facility] LABORATORYEosinophils Absolute0.30.0 - 0.4 X10^9/L103/17/2024 10:32 PM [facility] LABORATORYBasophils Absolute0.10.0 - 0.2 X10^9/L103/17/2024 10:32 PM [facility] LABORATORYDifferential TypeAUTOMATED FNOADAPLAGFV01/06/2025 10:32 PM [facility] LABORATORYSpecimen (Source)Anatomical Location / LateralityCollection Method / VolumeCollection TimeReceived TimeBloodVenous blood / Dkxemnz9401/15/2025 4:51 PM EST01/15/2025 4:51 PM EST Narrative Authorizing ProviderResult TypeResult StatusBrrell Pino TAG WRITER-CNPLAB BLOOD ORDERABLESFinal ResultPerforming OrganizationAddressCity/State/ZIP CodePhone Number [facility] [address] [place] [address], * Microalbumin - Albumin: Creatinine Urine Ratio (01/15/2025 4:51 PM EST) ComponentValueRef RangeTest MethodAnalysis TimePerformed AtPathologist SignatureURINE CREATININE,RDM82.47mg/dL01/15/2025 10:45 PM [facility] LABORATORYMALB/CREAT RATIO01/15/2025 10:45 PM [facility] LABORATORYComment:Urine Microalbumin / Creatinine ratio not calculated due to non-numeric component.MICROALBUMIN, URINE<0.70.0 - 1.9 mg/dL01/15/2025 10:45 PM [facility] LABORATORYSpecimen (Source)Anatomical Location / LateralityCollection Method / VolumeCollection TimeReceived Time UrineUrine specimen collection, clean catch / Ktxnewe3701/15/2025 4:51 PM EST 01/15/2025 4:51 PM EST Narrative Authorizing ProviderResult TypeResult StatusNicolasa Pino TAG WRITER-CNPURINE ORDERABLESFinal ResultPerforming OrganizationAddressCity/State/ZIP CodePhone Number [facility] [address] [place] [address], [place] [phone] * (ABNORMAL) Lipid profile (01/15/2025 4:51 PM EST)ComponentValueRef RangeTest MethodAnalysis TimePerformed AtPathologist GucxfbhmjBESRIMXFFFE752(L)150 - 200 mg/dL01/15/2025 10:47 PM [facility] JOEIFUQAJIKKIQNZPEIFNR555 (H)27 - 150 mg/dL01/15/2025 10:47 PM [facility] LABORATORYHDL LBHDJSJYSQU00>39 mg/dL01/15/2025 10:47 PM [facility] LABORATORYComment: HDL <40 mg/dL - High Risk HDL > or = 40mg/dL- Desirable HDL >60 mg/dL - Negative Risk LDL (CALC)66<130 mg/dL01/15/2025 10:47 PM [facility] Comment: LDL <100 mg/dL - Desirable LDL >160 mg/dL - High Risk CHOLESTEROL:HDL3.31.0 - 5.011 10:47 PM [facility] LABORATORYVERY LOW ZEQIGASVQMX94(H)0 - 30 mg/dL01/15/2025 10:47 PM [facility] LABORATORYSpecimen (Source)Anatomical Location / Laterality Collection Method / VolumeCollection TimeReceived TimeBloodVenous blood / Auwxdxz9501/15/2025 4:51 PM EST01/15/2025 4:51 PM EST Narrative Authorizing ProviderResult TypeResult StatusNicolasa Pino TAG WRITER-CNPLAB BLOOD ORDERABLESFinal ResultPerforming OrganizationAddressCity/State/ZIP CodePhone Number [facility] [address] [place] [address], [place] [phone] * (ABNORMAL) Comprehensive metabolic panel (01/15/2025 4:51 PM EST)Component ValueRef RangeTest MethodAnalysis TimePerformed AtPathologist SignatureSODIUM 661477 - 146 mmol/L103/17/2024 10:47 PM [facility] POTASSIUM4.13.5 - 5.0 mmol/L103/17/2024 10:47 PM [facility] QMPSOJMYEWIFQNDHWL97186 - 109 mmol/L103/17/2024 10:47 PM [facility] LABORATORYCARBON LAATGPD8849 - 32 mmol/L103/17/2024 10:47 PM [facility] LABORATORYANION IQS019 - 15 mmol/L103/17/2024 10:47 PM [facility] LABORATORYBLOOD UREA SPALMCQH622 - 23 mg/dL01/15/2025 10:47 PM [facility] LABORATORYCREATININE0.680.40 - 1.00 mg/dL 01/15/2025 10:47 PM [facility] LABORATORYComment:METHOD TRACEABLE TO IDNE LNDXQBESZCKIEUL216(H)65 - 99 mg/dL01/15/2025 10:47 PM [facility] LABORATORYCALCIUM9.28.5 - 10.5 mg/dL01/15/2025 10:47 PM [facility] LABORATORYTOTAL PROTEIN7.46.0 - 8.0 g/dL 01/15/2025 10:47 PM [facility] LABORATORYALBUMIN4.43.2 - 5.3 g/dL01/15/2025 10:47 PM [facility] LABORATORYALKALINE MPPISAIUAYX4540 - 130 U/L103/17/2024 10:47 PM [facility] ZMWFBLZIGNZUR78<=41 U/L103/17/2024 10:47 PM [facility] GNSHHJPAEXOBN65<=31 U/L103/17/2024 10:47 PM [facility] LABORATORYBILIRUBIN,TOTAL0.40.3 - 1.2 mg/dL01/15/2025 10:47 PM [facility] LABORATORYEGFR Non-Race Dependent>90>=60 ml/min/1.73sq.m 01/15/2025 10:47 PM [facility] LABORATORYComment: Reported eGFR is based on the CKD-EPI 2020 equation that does not use a race coefficient. Specimen (Source)Anatomical Location / LateralityCollection Method / Volume Collection TimeReceived TimeBloodVenous blood / Bapeirv9201/15/2025 4:51 PM EST 01/15/2025 4:51 PM EST Narrative Authorizing ProviderResult TypeResult StatusNicolasa Pino TAG WRITER-CNPLAB BLOOD ORDERABLESFinal ResultPerforming OrganizationAddressCity/State/ZIP CodePhone Number [facility] [address] [place] [address], * POCT Hemoglobin A1c (01/15/2025 4:39 PM EST)ComponentValueRef RangeTest Method Analysis TimePerformed AtPathologist SignatureExternal Poct Hgb A1C6.44 - 7 % MANUALLY TRANSCRIBED RESULTSSpecimen (Source)Anatomical Location / Laterality Collection Method / VolumeCollection TimeReceived DcfwCtucr37/06/2025 4:39 PM EST Narrative Authorizing ProviderResult TypeResult StatusNicolasa Javon Pino TAG WRITER-CNPPOINT OF CARE TEST ORDERABLESFinal ResultPerforming OrganizationAddressCity/State/ZIP Code Phone Number MANUALLY TRANSCRIBED RESULTS * HM MAMMOGRAPHY (11/26/2023 8:14 AM EDT)Anatomical RegionLateralityModality Other Narrative Authorizing ProviderResult TypeResult StatusNot In System Ref ProvHEALTH MAINTENANCEFinal Result from Last 3 Months or Most Recently Relevant to Health Maintenance Insurance Care Teams Team MemberRelationshipSpecialtyStart DateEnd Date Tank Hinds, TAG WRITER-MARKSMANSHIP INSTRUCTOR [address] [place] [address] PCP - GeneralInternal Medicine10/06/24
--- OUTSIDE RECORDS SUMMARY | 2025-02-09 07:45 | XMS_ITS | Clinical Summary ---
Author Organization [facility] Address [address] [place] [address] Care Team Providers Care Sports Clerk Name Role Phone Unavailable Primary Care Provider Unavailabl e Allergies Active AllergyReactionsCriticalityNoted DateCommentsBacitracin-Polymyxin B Ozdddxu7712/22/20209866RradhsXfdcezn37/13/2021NaproxenAnaphylaxis,UnknownHigh 07/04/2017 Throat swollen shut Shrimp Rceftux6102/12/2021 Other reaction(s): shellfish Sulfa VvekdgtcwycTacyrkr16/13/2021 Other reaction(s): Unknown Sulfamethoxazole-JokkadtkzvbyJtalMqo01/02/2018 Medications MedicationSigDispense QuantityRefillsLast FilledStart DateEnd DateStatus lisinopril 30 MG tablet Take 30 mg by mouth in the morning.Active rosuvastatin (Crestor) 20 MG tablet Take 20 mg by mouth in the morning.Active Calcium Carb-Cholecalciferol (CALCIUM + D3 PO) Calcium + E7Yjwrxe Turmeric 400 MG capsule TurmericActive Encounters DateTypeDepartmentCare QfaxFaettuhdava13/21/2025Orders Only [facility] [address] [place] [address] Alyson Montalvo LPN 01/20/2025 11:00 AM ESTOffice Visit [facility] [address] [place] [address] Jayro Jeffers DO Well woman exam with routine gynecological exam; Encounter for screening mammogram for malignant neoplasm of lqiixp5301/20/2025 Clinisync Result Encounter [facility] External Department Unsolicited Jayro Jeffers DO 01/20/2025amboo flowsheet [facility] [address] [place] [address] Jayro Jeffers DO from Last 3 Months Family History Medical HistoryRelationNameCommentsStrokeFatherDiabetesMotherRelationNameStatus CommentsFatherDeceasedMaternal GrandfatherDeceasedMaternal GrandmotherDeceased MotherDeceasedPaternal GrandfatherDeceasedPaternal GrandmotherDeceased Social History Tobacco UseTypesPacks/DayYears UsedDateSmoking Tobacco: Every DayCigarettes Tobacco Cessation:Ready to Q uit: Not Asked; Counseling Given: Not Answered Alcohol UseStandard Drinks/WeekCommentsYes0 (1 standard drink = 0.6 oz pure alcohol)Monthly or lessCommentsUnknownSex and Gender InformationValue Date RecordedSex Assigned at IzjazLadkrm78/04/2023 8:39 AM EDTLegal SexFemale 05/24/2022 6:35 PM EDTGender TxldcjbsLwhwjy69/04/2023 8:39 AM EDTSexual OrientationNot on file Last Filed Vital Signs Vital SignReadingTime TakenCommentsBlood Yjksjmbm325/7201/20/2025 11:01 AM EST Pulse--Temperature--Respiratory Rate--Oxygen Saturation--Inhaled Oxygen Concentration--Sdtwpv089 kg (222 lb 1.9 oz)01/20/2025 11:01 AM DWAEtfatw224.5 cm (5' 2 )01/14/2024 11:46 AM ESTBody Mass Index40.6301/14/2024 11:46 AM EST Plan of Treatment DateTypeDepartmentCare Team (Latest Contact Info)Lupgxlcwfbh40/17/2026 9:00 AM ESTProcedure Visit [facility] [address] [place] [address] Jayro Jeffers DO [address] [place], [place] [id number] Procedures Procedure NamePriorityDate/TimeAssociated DiagnosisCommentsIGP,APTIMA HPV,AGE MCNHGflxzxl71/11/2025 11:00 AM EST PAP TEST, VLATMHZRWzycllf71/11/2025 12:00 AM ESTfrom Last 3 Months Results * IGP,APTIMA HPV,AGE GDLN (01/20/2025 11:00 AM EST)ComponentValueRef RangeTest MethodAnalysis TimePerformed AtPathologist SignatureAGE GDLN ACOG TESTINGNote. TBHComment: ?? TESTS ? RESULT ??FLAG ??UNITS ?REF RANGE ??LAB ?? Clinician Provided Cytology Information ?? Source.............Cervix;Endocervix ?? No. of containers..01 ThinPrep Vial Age Algo ACOG Mary... ??30-65 ? 01 ?FLAG LEGEND: ?L-Low Normal,H-High Normal,LL-Alert Low,HH-Alert High <-Panic Low,>-Panic High,A-Abnormal,AA-Critical Abnormal Performed at: 01 =G ?[facility] ?? [address] [place] ??[phone] ?? Grisel Piña MD, IGP, APTIMA HPV, RFX 16/18,45Note.TBHComment: ?? TESTS ? RESULT ??FLAG ??UNITS ?REF RANGE ??LAB DIAGNOSIS: ?02 ?? NEGATIVE FOR INTRAEPITHELIAL LESION OR MALIGNANCY. ?? REACTIVE CELLULAR CHANGES AND/OR REPAIR ARE PRESENT. ?? CELLULAR CHANGES ASSOCIATED WITH ATROPHY ARE PRESENT. Specimen adequacy: ?02 ?? Satisfactory for evaluation. ??Endocervical component may not be ?? distinguished in cases of atrophy. Performed by: ? 02 ?? Hermelindo Chapin Link Wire Fabric Machine Operator (ASCP) Electronically si... ?02 ?? Dylan Gill MD, Pathologist . ? 02 Note: ? Note ?02 ?? The Pap smear is a screening test designed to aid in the ?? detection of premalignant and malignant conditions of the ?? uterine cervix. ??It is not a diagnostic procedure and ?? should not be used as the sole means of detecting cervical ?? cancer. ??Both false-positive and false-negative reports do ?? occur. Test Methodology: ? Note ?02 ?? This liquid based ThinPrep(R) pap test was interpreted ?? using the [employer](R) [employer] Solutions(TM) Cervical Algorithm whole ?? slide imaging system. HPV Genotype Reflex ?? Note ?02 ?? Criteria not met, HPV Genotype not performed. ?FLAG LEGEND: ?L-Low Normal,H-High Normal,LL-Alert Low,HH-Alert High <-Panic Low,>-Panic High,A-Abnormal,AA-Critical Abnormal Performed at: 02 WB ?[facility] ?? [address] [place], [place] ??[phone] ?? Grisel Piña MD, HPV APTIMANegativeNegativeTBHComment: This nucleic acid amplification test detects fourteen high- risk HPV types (16,18,31,33,35,39,45,51,52,56,58,59,66,68) without differentiation. Performed at: ??=G - [facility] [place] [address] [place], [place] ??[id number] Lifter/Driver: Grisel Piña MD, Phone: ??[phone] Performed at: ?? - [facility] [place], [place], [place] ??[id number] Lifter/Driver: Grisel Piña MD, Phone: ??[phone] Specimen (Source)Anatomical Location / LateralityCollection Method / Volume Collection TimeReceived Time01/20/2025 11:00 AM EST01/20/2025 8:03 PM EST Narrative [facility] - 01/26/2025 4:09 PM EST BRUSH-SPATULA CERVIX ENDOCERVIX Authorizing ProviderResult TypeResult StatusCorey Zeyad DOLAB BLOOD ORDERABLES Final ResultPerforming OrganizationAddressCity/State/ZIP CodePhone Number [facility] TBH * PAP TEST, EXTERNAL (01/20/2025 12:00 AM EST) Narrative Authorizing ProviderResult TypeResult StatusFazio Nurse [facility] Ob[facility] CYTOLOGY ORDERABLESFinal ResultPerforming OrganizationAddressCity/State/ZIP CodePhone Number EXTERNAL LAB from Last 3 Months Insurance
--- OUTSIDE RECORDS SUMMARY | 2025-02-09 07:45 | XMS_ITS | Encounter Summary ---
Author Organization [facility] Address [address] [place] [address] Care Team Providers Care Wire Splicer Name Role Phone Unavailable Primary Care Provider Unavailabl e Encounter Details DateTypeDepartmentCare Team (Latest Contact Info)Ngjxopfojdh15/11/2025linisync Result Encounter [facility] External Department Unsolicited Jayro Jeffers, DO [address] [place] [address] Social History Tobacco UseTypesPacks/DayYears UsedDateSmoking Tobacco: Every DayCigarettes Alcohol UseStandard Drinks/WeekCommentsYes0 (1 standard drink = 0.6 oz pure alcohol)Monthly or lessCommentsUnknownSex and Gender InformationValue Date RecordedSex Assigned at CokttJrjzle96/04/2023 8:39 AM EDTLegal SexFemale 05/24/2022 6:35 PM EDTGender OxemehieOmayoa67/04/2023 8:39 AM EDTSexual OrientationNot on filedocumented as of this encounter Plan of Treatment DateTypeDepartmentCare Team (Latest Contact Info)Gdeirwqjpnu93/17/2026 9:00 AM ESTProcedure Visit [facility] [address] [place] [address] Jayro Jeffers, [address] [place] [address] documented as of this encounter Procedures Procedure NamePriorityDate/TimeAssociated DiagnosisCommentsIGP,APTIMA HPV,AGE FDDNOejearw09/11/2025 11:00 AM EST documented in this encounter Results * IGP,APTIMA HPV,AGE GDLN (01/20/2025 11:00 AM EST)ComponentValueRef RangeTest MethodAnalysis TimePerformed AtPathologist SignatureAGE GDLN ACOG TESTINGNote. TBHComment: ?? TESTS ? RESULT ??FLAG ??UNITS ?REF RANGE ??LAB ?? Clinician Provided Cytology Information ?? Source.............Cervix;Endocervix ?? No. of containers..01 ThinPrep Vial Age Algo ACOG Mary... ??30-65 ? 01 ?FLAG LEGEND: ?L-Low Normal,H-High Normal,LL-Alert Low,HH-Alert High <-Panic Low,>-Panic High,A-Abnormal,AA-Critical Abnormal Performed at: 01 =G ?[facility] [place] ?? [address] [place] ??[phone] ?? Grisel Piña MD, IGP, APTIMA HPV, [...] Performed by: ? 02 ?? Hermelindo Chapin Court Manager (ASCP) Electronically si... ?02 ?? Dylan Gill [...] pap test was interpreted ?? using the [employer](R) [employer](TM) Cervical Algorithm whole ?? slide imaging system. HPV Genotype Reflex ?? Note ?02 ?? Criteria not met, HPV Genotype not performed. ?FLAG LEGEND: ?L-Low Normal,H-High Normal,LL-Alert Low,HH-Alert High <-Panic Low,>-Panic High,A-Abnormal,AA-Critical Abnormal Performed at: 02 WB ?[facility] [place] ?? [address] [place], [place] ??[phone] ?? Grisel Piña MD, HPV APTIMANegativeNegativeTBHComment: This nucleic acid amplification test detects fourteen high- risk HPV types (16,18,31,33,35,39,45,51,52,56,58,59,66,68) without differentiation. Performed at: ??=[facility] - [facility] [address] [place], [place] ??[id number] Photoengraving Apprentice: Grisel Piña MD, Phone: ??[phone] Performed at: ??WB - [facility] [address] ??[id number] Photoengraving Apprentice: Grisel Piña MD, Phone: ??[phone] Specimen (Source)Anatomical Location / LateralityCollection Method / Volume Collection TimeReceived Time01/20/2025 11:00 AM EST01/20/2025 8:03 PM EST Narrative [facility] - 01/26/2025 4:09 PM EST BRUSH-SPATULA CERVIX ENDOCERVIX Authorizing ProviderResult TypeResult StatusCorey Zeyad DOLAB BLOOD ORDERABLES Final ResultPerforming OrganizationAddressCity/State/ZIP CodePhone Number [facility] TB documented in this encounter Visit Diagnoses Not on filedocumented in this encounter
--- OUTSIDE RECORDS SUMMARY | 2025-02-09 07:45 | XMS_ITS | Encounter Summary ---
Author Organization [facility] Address [address] [place] [address] Care Team Providers Care Ex Chef Name Role Phone Unavailable Primary Care Provider Unavailabl e Encounter Details DateTypeDepartmentCare Team (Latest Contact Info)Bbllhzmhviu92/21/2025Orders Only [facility] [address] [place] [address] Alyson Montalvo LPN [address] [place] [facility] [address] Social History Tobacco UseTypesPacks/DayYears UsedDateSmoking Tobacco: Every DayCigarettes Alcohol UseStandard Drinks/WeekCommentsYes0 (1 standard drink = 0.6 oz pure alcohol)Monthly or lessCommentsUnknownSex and Gender InformationValue Date RecordedSex Assigned at WfbfbUakqru72/04/2023 8:39 AM EDTLegal SexFemale 05/24/2022 6:35 PM EDTGender IrrndtrpRjyevi45/04/2023 8:39 AM EDTSexual OrientationNot on filedocumented as of this encounter Plan of Treatment DateTypeDepartmentCare Team (Latest Contact Info)Thjasgdpplx63/17/2026 9:00 AM ESTProcedure Visit [facility] [address] [place] [address] Jayro Jeffers DO [address] [place] [address] documented as of this encounter Procedures Procedure NamePriorityDate/TimeAssociated DiagnosisCommentsPAP TEST, EXTERNAL Hnuiruj2701/20/2025 12:00 AM ESTdocumented in this encounter Results * PAP TEST, EXTERNAL (01/20/2025 12:00 AM EST) Narrative Authorizing ProviderResult TypeResult StatusFazio Nurse [facility] CYTOLOGY ORDERABLESFinal ResultPerforming OrganizationAddressCity/State/ZIP CodePhone Number EXTERNAL LAB documented in this encounter Visit Diagnoses Not on filedocumented in this encounter
--- NOTE | 2025-02-09 07:46 | MM_ITS ---
Patient Name: CAL ALVAREZ MR#: [id number] : 1965 Exam Date: 02/09/2025 Ordering Doctor: DR ALLEY LONDON . RADIOLOGY REPORT PROCEDURE: MM TOMOSYNTHESIS SCREENING BI COMPARISON: MM TOMOSYNTHESIS SCREENING BI, 11/26/2023. MM TOMOSYNTHESIS SCREENING BI, 11/24/2022. MG MAMM SCREEN 3D TIKA CAD, 11/23/2021. MG MAMM TIKA SCRN W CAD DIG, 06/04/2013. INDICATIONS: Screening Calculator Name NCI Breast Cancer Risk Assessment Tool 5 Year Breast Cancer Risk 1.20% Lifetime Breast Cancer Risk 6.90% Personal Breast Cancer No Personal Ovarian Cancer No Treatments None Family Cancers None LOCATION: [facility] BREAST COMPOSITION: There are scattered areas of fibroglandular density. FINDINGS: RIGHT BREAST: No significant suspicious finding. LEFT BREAST: No significant suspicious finding. DIAGNOSTIC CATEGORY 1--NEGATIVE. NO CHANGE FROM COMPARISON ASSESSMENT. RECOMMENDATIONS: ROUTINE MAMMOGRAM AND CLINICAL EVALUATION IN 12 MONTHS. Dictated by: Elias Bates MD on 02/09/2025 at 13:17 Approved by: Elias Bates MD on 02/09/2025 at 13:22
== END 2025-02-09 07:45 | disposition home or self-care (01) ==
LOC: MAMMO 07:44
PROVIDERS: PCP Nurse Practitioner; Visit Provider Obstetrics & Gynecology
DX: Z12.31 Encounter for screening mammogram for malignant neoplasm of breast (principal)
CPT/HCPCS: 77063; 77067